=== PATIENT | female | born 1950 | race Caucasian/White ===

== ENCOUNTER 2020-03-29 08:58 | Outpatient (REF) | payer MEDICARE, SELFPAY ==
--- NOTE | 2020-03-29 09:03 | MM_ITS ---
EXAMINATION: MM SCREENING DIGITAL BREAST TOMOSYNTHESIS, BILATERAL CLINICAL INFORMATION: Screening. Asymptomatic. The lifetime risk of breast cancer based on the Tyrer-Cuzick Model is 5.2%. COMPARISON: Mammography: January 11, 2019 and studies dating back to May 24, 2013 TECHNIQUE: Digital breast tomosynthesis is performed in both the craniocaudal and mediolateral oblique views along with computer-aided detection (CAD). Synthesized 2D images are generated from the tomosynthesis. Left exaggerated craniocaudal view also performed. FINDINGS: The breasts are heterogeneously dense, which may obscure small masses (ACR BI-RADS breast composition Category c). There are no significant masses, abnormal calcifications, or other abnormalities. There is stable grouping of calcifications about the deep lateral aspect of the left breast which may be vascular. MM/MM tomosynthesis screening BI IMPRESSION: There are no significant changes from prior study. ASSESSMENT: BI-RADS 2: Benign RECOMMENDATION: Routine annual mammography screening. This patient's information was entered into a reminder system with a target due date for their next mammogram.
== END 2020-03-29 08:59 | disposition home or self-care (01) ==
LOC: HO.MAMMO 08:58
PROVIDERS: PCP Internal Medicine; Visit Provider Internal Medicine
DX: Z12.31 Encounter for screening mammogram for malignant neoplasm of breast (principal)
CPT/HCPCS: 77063; 77067

== ENCOUNTER 2020-05-09 09:08 | Outpatient (REF) | payer MEDICARE, SELFPAY ==
[2020-05-09 11:43] LABS: Cholesterol 137 mg/dL; Glucose Fasting 83 mg/dL (60-99); HDL Cholesterol 52 mg/dL; LDL Cholesterol Calculated 70 mg/dl; Triglycerides 76 mg/dL
[2020-05-09 12:08] LABS: Vitamin D 25-OH Total 38.5 ng/mL (>30)
== END 2020-05-09 09:09 | disposition home or self-care (01) ==
LOC: HO.HMGCLDS 09:08
PROVIDERS: PCP Internal Medicine; Visit Provider Internal Medicine
DX: E78.5 Hyperlipidemia, unspecified (principal); I10 Essential (primary) hypertension; M35.3 Polymyalgia rheumatica
CPT/HCPCS: 36415; 80061; 82306; 82947

== ENCOUNTER 2020-06-07 10:19 | Outpatient (REF) | payer MEDICARE, SELFPAY ==
--- NOTE | ~2020-06-07 | MM_ITS ---
EXAMINATION: BONE DENSITOMETRY CLINICAL INDICATION: Asymptomatic menopausal state. COMPARISON: Previous BD dated 11/21/2017 and baseline BD dated 08/19/2008. TECHNIQUE: Using a [employer] DXA System (software version: 13.1) manufactured by [employer], dual-energy x-ray absorptiometry was performed of the lumbar spine and left hip. The images are of good technical quality. Summary results are attached. FINDINGS: AP SPINE L1-L4: Current: BMD 0.893 g/cm2, Z-score -0.6, T-score -2.4, osteopenia, 8.0% decrease from previous, 14.1% decrease from baseline (<5% change is not significant). Prior: BMD 0.971 g/cm2. Baseline: BMD 1.040 g/cm2. LEFT FEMUR, NECK: Current: BMD 0.724 g/cm2, Z-score -0.5, T-score -2.3, osteopenia. Prior: BMD 0.834 g/cm2. Baseline: BMD 0.910 g/cm2. LEFT FEMUR, TOTAL: Current: BMD 0.780 g/cm2, Z-score -0.3, T-score -1.8, osteopenia, 11.4% decrease from previous, 16.1% decrease from baseline (<5% change is not significant). Prior: BMD 0.880 g/cm2. Baseline: BMD 0.930 g/cm2. IDENTIFIED RISK FACTORS: Menopause, glucocorticoids (chronic). HISTORY OF FRACTURE: None listed. MEDICATIONS: Calcium supplements or multivitamin, vitamin D. MM/XR DEXA axial skeleton IMPRESSION: 1. DIAGNOSIS: Osteopenia based on the lowest T-score value of -2.4 in the lumbar spine applying World Health Organization criteria. 2. 10-YEAR FRACTURE RISK PREDICTION, FRAX: Major osteoporotic fracture (clinical spine, forearm, hip or shoulder) 18.5%. Hip fracture 4.5%. 3. Treatment Recommendations: NOF guidelines recommend consideration for treatment in postmenopausal women and men age 50 and older presenting with the following: -A hip or vertebral (clinical or morphometric) fracture. -T-score less than or equal to -2.5 at the femoral neck or spine after appropriate evaluation to exclude secondary causes. -Low bone mass at the hip or spine and a 10-year fracture probability by FRAX of greater than or equal to 3% for hip fracture or greater than or equal to 20% for major osteoporotic fracture based on the [place] adapted WHO algorithm. 4. Other Recommendations: All treatment decisions require clinical judgment and consideration of individual patient factors, including patient preferences, comorbidities, previous drug use, risk factors not captured in the FRAX model (e.g. frailty, falls, vitamin D deficiency, increased bone turnover, interval significant decline in bone density) and possible under or overestimation of fracture risk by FRAX. Additional medical evaluation for secondary cause of low bone mineral density may be appropriate. FUTURE SCAN RECOMMENDATION: People with diagnosed cases of osteoporosis or at high risk for fracture should have regular bone mineral density tests. For patients eligible for Medicare, routine testing is allowed once every 2 years. The testing frequency can be increased to one year for patients who have rapidly progressing disease, those who are receiving or discontinuing medical therapy to restore bone mass, or have additional risk factors.
== END 2020-06-07 10:20 | disposition home or self-care (01) ==
LOC: HO.MAMMO 10:19
PROVIDERS: Visit Provider Internal Medicine
DX: Z13.820 Encounter for screening for osteoporosis (principal); E27.49 Other adrenocortical insufficiency; M85.80 Other specified disorders of bone density and structure, unspecified site; Z78.0 Asymptomatic menopausal state; Z79.899 Other long term (current) drug therapy
CPT/HCPCS: 77080

== ENCOUNTER 2020-10-31 08:48 | Outpatient (REF) | payer MEDICARE, SELFPAY ==
--- NOTE | ~2020-10-31 | US_ITS ---
EXAMINATION: US THYROID CLINICAL INFORMATION: Nontoxic multinodular goiter. Left lobectomy. COMPARISON: Thyroid ultrasound 11/04/2019 and 11/12/2018. Ultrasound-guided thyroid biopsy 10/23/2017. TECHNIQUE: Linear transducer grayscale and color Doppler examination with attention to the region of the thyroid. FINDINGS: SIZE: Measurements of the solitary right lobe and nodules are given in sagittal, anteroposterior and transverse dimensions respectively. Right Thyroid Lobe: 6.5 x 2.3 x 2.0 cm, volume 15.6 mL. Previously 6.1 x 2.5 x 1.8 cm, volume 14.4 mL. Parenchyma: The gland echotexture is heterogeneous. Thyroid vascularity is increased. Left Thyroid Lobe: Surgically absent. Isthmus: 0.9 cm in maximum AP dimension. Previously 0.8 cm. Estimated total number of nodules greater than or equal to 1 cm: 1. 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 Location: Right upper pole. Size: 0.5 x 0.3 x 0.5 cm, volume 0.04 mL. Previously: 0.5 x 0.3 x 0.5 cm, volume 0.04 mL. Nodule characteristics: Composition: Solid/almost completely solid (2). Echogenicity: Isoechoic (1). Shape: Not taller than wide (0). Margins: Smooth (0). Echogenic Foci: None (0). ACR TI-RADS total points: 3 Previous: Not applicable ACR TI-RADS category: 3 Previous: Not applicable Significant change in size (>/= 20% in 2 dimensions and minimal increase of 2 mm or 50% or greater increase in volume): Change in features: Change in ACR TI-RADS risk category: Not applicable 2. Location: Right upper pole. Size: 0.6 x 0.3 x 0.6 cm, volume 0.04 mL. Previously: 0.5 x 0.3 x 0.5 cm, volume 0.04 mL. Nodule characteristics: Composition: Spongiform (0). Echogenicity: Shape: Margins: Echogenic Foci: ACR TI-RADS total points: Previous: Not applicable ACR TI-RADS category: Previous: Not applicable Significant change in size (>/= 20% in 2 dimensions and minimal increase of 2 mm or 50% or greater increase in volume): Change in features: Change in ACR TI-RADS risk category: Not applicable 3. Location: Right upper pole. Size: 0.3 x 0.2 x 0.4 cm, volume 0.02 mL. Previously: Not documented, new. Nodule characteristics: Composition: Solid/almost completely solid (2). Echogenicity: Isoechoic (1). Shape: Not taller than wide (0). Margins: Smooth (0). Echogenic Foci: None (0). ACR TI-RADS total points: 3 Previous: Not applicable ACR TI-RADS category: 3 Previous: Not applicable 4. Location: Right lower pole. Size: 1.6 x 1.1 x 1.6 cm, volume 1.50 mL. Previously: 1.4 x 1.1 x 1.3 cm, volume 1.05 mL. Nodule characteristics: Composition: Solid (2). Echogenicity: Isoechoic (1). Shape: Not taller than wide (0). Margins: Irregular (2). Echogenic Foci: None (0). ACR TI-RADS total points: 5 Previous: Not applicable ACR TI-RADS category: 4 Previous: Not applicable Significant change in size (>/= 20% in 2 dimensions and minimal increase of 2 mm or 50% or greater increase in volume): Change in features: Change in ACR TI-RADS risk category: Not applicable NODES: No lymphadenopathy is seen in the tissue surrounding the thyroid gland. US/US thyroid IMPRESSION: Enlarged heterogeneous hypervascular right lobe and isthmus. 4 right thyroid nodules. There is a newly appreciated small nodule in the superior right lobe. Otherwise thyroid nodules do not appear appreciably changed. ACR TI-RADS RECOMMENDATION REFERENCE: Ultrasound-guided fine-needle aspiration, followup ultrasound, no further follow up. * TR1 (0 point) and TR 2 (2 points): No FNA or follow up * TR3 (3 points): FNA if more than or equal to 2.5 cm in maximum dimension, followup ultrasound in 1, 3 and 5 years if 1.5 to 2.4 cm in maximum dimension. * TR4 (4-6 points): FNA if more than or equal to 1.5 cm in maximum dimension, followup ultrasound in 1, 2, 3 and 5 years if 1 to 1.4 cm in maximum dimension. * TR5 (more than or equal to 7 points): FNA if more than or equal to 1 cm in maximum dimension, followup ultrasound every year for 5 years if 0.5 to 0.9 cm in maximum dimension. * TR3, TR4 or TR5 nodules that are below the size threshold for follow up receive no follow up.
[2020-10-31 12:36] LABS: Free T4 (Free Thyroxine) 1.15 ng/dL (0.71-1.85); Thyroid Stimulating Hormone 1.08 uIU/mL (0.32-4.0)
== END 2020-10-31 08:49 | disposition home or self-care (01) ==
LOC: HO.HMGCX 08:48
PROVIDERS: Internal Medicine Endocrinology, Diabetes & Metabolism; Visit Provider Internal Medicine
DX: E04.2 Nontoxic multinodular goiter (principal)
CPT/HCPCS: 36415; 76536; 84439; 84443

== ENCOUNTER 2020-12-23 07:40 | Outpatient (REF) | payer MEDICARE, SELFPAY ==
[2020-12-23 11:36] LABS: Alanine Aminotransferase 14 U/L (0-31); Anion Gap 11 (12-20); Aspartate Amino Transferase 18 U/L (5-31); Blood Urea Nitrogen 13 mg/dL (9-16); Calcium 9.2 mg/dL (8.4-10.2); Carbon Dioxide 26 mmol/L (22-29); Chloride 107 mmol/L (96-108); Cholesterol 121 mg/dL; Estimated Glomerular Filt Rate > 60; Glucose Fasting 90 mg/dL (60-99); HDL Cholesterol 45 mg/dL; LDL Cholesterol Calculated 66 mg/dl; Potassium 4.4 mmol/L (3.3-5.1); Sodium 140 mmol/L (135-145); Triglycerides 51 mg/dL
[2020-12-23 11:45] LABS: Free T4 (Free Thyroxine) 1.06 ng/dL (0.71-1.85); Thyroid Stimulating Hormone 1.25 uIU/mL (0.32-4.0)
[2020-12-23 11:46] LABS: Vitamin D 25-OH Total 34.6 ng/mL (>30)
== END 2020-12-23 07:41 | disposition home or self-care (01) ==
LOC: HO.HMGCLDS 07:40
PROVIDERS: Internal Medicine; PCP Internal Medicine; Visit Provider Internal Medicine
DX: E04.2 Nontoxic multinodular goiter (principal); I10 Essential (primary) hypertension; E78.5 Hyperlipidemia, unspecified; M85.89 Other specified disorders of bone density and structure, multiple sites; M35.3 Polymyalgia rheumatica; Z78.0 Asymptomatic menopausal state
CPT/HCPCS: 36415; 80048; 80061; 82306; 84439; 84443; 84450; 84460

== ENCOUNTER 2021-03-29 07:29 | Outpatient (REF) | payer MEDICARE, SELFPAY ==
[2021-03-29 11:59] LABS: Alanine Aminotransferase 12 U/L (0-31); Aspartate Amino Transferase 16 U/L (5-31); Cholesterol 130 mg/dL; HDL Cholesterol 44 mg/dL; LDL Cholesterol Calculated 69 mg/dl; Triglycerides 85 mg/dL
== END 2021-03-29 07:30 | disposition home or self-care (01) ==
LOC: HO.HMGCLDS 07:29
PROVIDERS: Visit Provider Internal Medicine
DX: E78.5 Hyperlipidemia, unspecified (principal); I10 Essential (primary) hypertension
CPT/HCPCS: 36415; 80061; 84450; 84460

== ENCOUNTER 2021-04-23 09:55 | Outpatient (REF) | payer MEDICARE, SELFPAY ==
--- NOTE | ~2021-04-23 | MM_ITS ---
EXAMINATION: MM SCREENING DIGITAL BREAST TOMOSYNTHESIS, BILATERAL CLINICAL INFORMATION: Screening. Asymptomatic. The lifetime risk of breast cancer based on the Tyrer-Cuzick Model is 4%. COMPARISON: Mammography: 03/29/2020, 01/11/2019, 11/21/2017 TECHNIQUE: Digital breast tomosynthesis is performed in both the craniocaudal and mediolateral oblique views along with computer-aided detection (CAD). Synthesized 2D images are generated from the tomosynthesis. FINDINGS: The breasts are heterogeneously dense, which may obscure small masses (ACR BI-RADS breast composition Category c). There are no significant masses, abnormal calcifications, or other abnormalities. Parenchymal pattern is similar to prior studies. There is no developing density or architectural abnormality. There are dermal lesions again seen overlying the upper right breast on MLO view. The axilla and skin contours are unremarkable. No significant changes. MM/MM tomosynthesis screening BI IMPRESSION: No mammographic evidence of malignancy. ASSESSMENT: BI-RADS 2: Benign RECOMMENDATION: Routine annual mammography screening. This patient's information was entered into a reminder system with a target due date for their next mammogram.
== END 2021-04-23 09:56 | disposition home or self-care (01) ==
LOC: HO.MAMMO 09:55
PROVIDERS: PCP Internal Medicine; Visit Provider Internal Medicine
DX: Z12.31 Encounter for screening mammogram for malignant neoplasm of breast (principal)
CPT/HCPCS: 77063; 77067

== ENCOUNTER 2021-08-01 10:39 | Outpatient (REF) | payer MEDICARE, SELFPAY ==
--- NOTE | ~2021-08-01 | US_ITS ---
EXAMINATION: US ULTRASOUND-GUIDED THYROID FINE-NEEDLE ASPIRATION CLINICAL INFORMATION: Thyroid nodule. COMPARISON: Previous thyroid ultrasound, most recent October 2020. TECHNIQUE: Procedure and risks and benefits including bleeding and infection were discussed with the patient and informed consent was obtained. The right neck was prepped and draped in usual sterile fashion. The skin and soft tissues were anesthetized with 1% lidocaine plain. Using ultrasound guidance and a 25-gauge needle, access to the dominant nodule in the right lobe was obtained. Five separate 25-gauge FNA specimens were obtained. FINDINGS: There is a 1.7 x 1.2 x 1.8 cm nodule in the inferior right lobe that was targeted for fine-needle aspiration. US/US guided fine needle asp IMPRESSION: Ultrasound-guided right inferior thyroid nodule fine-needle aspiration.
[2021-08-01] MEDS: Lidocaine HCl 1 % MPF 5 ML VIAL SUBCUT (11:55)
== END 2021-08-01 10:40 | disposition home or self-care (01) ==
LOC: HO.US 10:39
PROVIDERS: PCP Internal Medicine; Visit Provider Internal Medicine
DX: E04.2 Nontoxic multinodular goiter (principal)
CPT/HCPCS: 10005; 88172; 88173; 88177; 88305

== ENCOUNTER 2021-08-03 07:11 | Outpatient (REF) | payer MEDICARE, SELFPAY ==
[2021-08-03 11:37] LABS: MANUAL DIFF FLAG NO
[2021-08-03 12:04] LABS: Basophils Absolute Auto 0.1 X10*3/uL (0.0-0.2); Basophils Percent Auto 1.1 % (0-2); Eosinophils Absolute Auto 0.2 X10*3/uL (0.0-0.4); Eosinophils Percent Auto 3.7 % (0-4); Hematocrit 44.2 % (37.0-47.0); Hemoglobin 14.5 g/dl (12.0-16.0); Imm Gran Abs Auto 0.01 X10*3/uL (0.00-0.03); Imm Gran Pct Auto 0.2 % (0.0-0.4); Lymphocytes Absolute Auto 1.6 X10*3/uL (1.2-4.9); Lymphocytes Percent Auto 26.2 % (20-40); Mean Corpuscular HGB Conc 32.8 g/dl (31.0-35.0); Mean Corpuscular Hemoglobin 29.9 pg (27.0-33.0); Mean Corpuscular Volume 91.1 fL (80.0-98.0); Mean Platelet Volume 11.9 fL (9.4-12.3); Monocytes Absolute Auto 0.6 X10*3/uL (0.1-1.2); Monocytes Percent Auto 8.8 % (2-11); Neutrophils Absolute Auto 3.7 x10*3/uL (2.0-8.3); Platelet Count 207 X10*3/uL (160-400); Red Blood Count 4.85 X10*6/uL (4.20-5.50); Red Cell Distribution Width 12.5 % (11.0-16.0); White Blood Count 6.2 X10*3/uL (4.8-10.8)
[2021-08-03 12:23] LABS: Alanine Aminotransferase 17 U/L (0-31); Anion Gap 15 (12-20); Aspartate Amino Transferase 15 U/L (5-31); Blood Urea Nitrogen 11 mg/dL (9-16); Calcium 9.5 mg/dL (8.4-10.2); Carbon Dioxide 25 mmol/L (22-29); Chloride 106 mmol/L (96-108); Cholesterol 140 mg/dL; Estimated Glomerular Filt Rate > 60; Glucose Fasting 98 mg/dL (60-99); HDL Cholesterol 50 mg/dL; LDL Cholesterol Calculated 72 mg/dl; Potassium 4.6 mmol/L (3.3-5.1); Sodium 141 mmol/L (135-145); Triglycerides 94 mg/dL
[2021-08-03 12:42] LABS: Vitamin D 25-OH Total 37.4 ng/mL (>30)
== END 2021-08-03 07:12 | disposition home or self-care (01) ==
LOC: HO.HMGCLDS 07:11
PROVIDERS: PCP Internal Medicine; Visit Provider Internal Medicine
DX: M35.3 Polymyalgia rheumatica (principal); I10 Essential (primary) hypertension; E78.5 Hyperlipidemia, unspecified; M85.89 Other specified disorders of bone density and structure, multiple sites; Z78.0 Asymptomatic menopausal state
CPT/HCPCS: 36415; 80048; 80061; 82306; 84450; 84460; 85025

== ENCOUNTER → 2021-08-08 09:42 | Outpatient (BNVA) | payer MEDICARE, SELFPAY | PROVIDERS: PCP Internal Medicine; Visit Provider Internal Medicine | DX: E04.2 Nontoxic multinodular goiter (principal); E55.9 Vitamin D deficiency, unspecified | CPT/HCPCS: Q3014 ==

== ENCOUNTER 2021-08-28 13:06 | Outpatient (REF) | payer MEDICARE, SELFPAY ==
[2021-08-28 14:49] LABS: Free T4 (Free Thyroxine) 1.14 ng/dL (0.71-1.85); Thyroid Stimulating Hormone 1.08 uIU/mL (0.32-4.0)
== END 2021-08-28 13:07 | disposition home or self-care (01) ==
LOC: HO.HMGCLDS 13:06
PROVIDERS: PCP Internal Medicine; Visit Provider Internal Medicine
DX: E04.2 Nontoxic multinodular goiter (principal)
CPT/HCPCS: 36415; 84439; 84443

== ENCOUNTER 2021-10-17 10:53 | Outpatient (REF) | payer MEDICARE, SELFPAY ==
--- NOTE | ~2021-10-17 | XR_ITS ---
EXAMINATION: XR HAND, RIGHT CLINICAL INFORMATION: Laceration of finger. COMPARISON: None TECHNIQUE: PA, lateral, and oblique views of the right hand. FINDINGS: Bones have normal alignment in the hand or wrist. No acute fracture or subluxation. Bone island of the distal ulnar metaphysis. No suspicious osseous lesion. 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 Mild osteoarthritis of the first carpometacarpal joint. A superficial soft tissue laceration projects anterior to the middle phalanx of the index finger. No radiopaque foreign body in this area. There appears to be mild soft tissue swelling of the injured index finger. XR/XR hand RT 2V IMPRESSION: * No acute osseous injury in the right hand. * Soft tissue laceration is observed anterior to the middle phalanx of the index finger.
== END 2021-10-17 10:54 | disposition home or self-care (01) ==
LOC: HO.HMGCX 10:53
PROVIDERS: PCP Internal Medicine; Visit Provider Family Medicine
DX: S61.211A Laceration without foreign body of left index finger without damage to nail, initial encounter (principal)
CPT/HCPCS: 73120

== ENCOUNTER 2022-01-23 07:38 | Outpatient (REF) | payer MEDICARE, SELFPAY ==
[2022-01-23 11:29] LABS: Alanine Aminotransferase 14 U/L (0-31); Anion Gap 13 (12-20); Aspartate Amino Transferase 15 U/L (5-31); Blood Urea Nitrogen 10 mg/dL (9-16); Calcium 9.6 mg/dL (8.4-10.2); Carbon Dioxide 29 mmol/L (22-29); Chloride 106 mmol/L (96-108); Cholesterol 147 mg/dL; Estimated Glomerular Filt Rate > 60; Glucose Fasting 99 mg/dL (60-99); HDL Cholesterol 59 mg/dL; LDL Cholesterol Calculated 72 mg/dl; Potassium 4.4 mmol/L (3.3-5.1); Sodium 144 mmol/L (135-145); Triglycerides 80 mg/dL
== END 2022-01-23 07:39 | disposition home or self-care (01) ==
LOC: HO.HMGCLDS 07:38
PROVIDERS: PCP Internal Medicine; Visit Provider Internal Medicine
DX: E78.5 Hyperlipidemia, unspecified (principal); I10 Essential (primary) hypertension
CPT/HCPCS: 36415; 80048; 80061; 84450; 84460

== ENCOUNTER 2022-02-21 15:34 | Outpatient (AMB) | payer MEDICARE, SELFPAY ==
[2022-02-21 15:55] VITALS: BP 130/72; PULSE 78; O2SAT 99
--- NOTE | 2022-02-21 15:55 | MHC.PC.OV ---
Vital Signs 02/21/22 15:55 Weight 127 lb 8 oz BP 130/72 Blood Pressure Location Rt brachial Position Standing Pulse 78 Pulse Source Pulse Oximeter Pulse Oximetry (%) 99 Oxygen Delivery Method Room Air Intake Visit Reasons: Follow up Allergies shellfish derived [SHELLFISH DERIVED] Allergy (Severe, Verified 04/23/24 08:33) Nausea, vomiting, Sever GI upset Sulfa (Sulfonamide Antibiotics) [SULFA (SULFONAMIDE ANTIBIOTICS)] Allergy (Intermediate, Verified 04/23/24 08:33) RASH, hives/rash TB test Allergy (Unknown, Uncoded 04/23/24 08:33) localized swelling, throat swelling Medication List - Last Reconciled 02/21/22 by Zari Dozier MD alendronate 70 mg PO QWEEK amlodipine 5 mg PO DAILY atorvastatin 20 mg PO DAILY 90 days cholecalciferol (vitamin D3) 50 mcg PO DAILY flu vac qv 2019(18yr up)rc(PF) IM hydroxychloroquine 300 mg PO DAILY latanoprost 0.005% 1 drp ophthalmic (eye) BEDTIME Tobacco use date assessed: 02/21/22 HPI Follow up HPI Details 72-year-old lady here today for follow-up on her hypertension and dyslipidemia currently on atorvastatin 20 mg daily and amlodipine 5 mg daily. Blood pressure stable controlled on present treatment, recent fasting labs showed fasting lipids are also within normal limits. [facility] Medical History Right thyroid nodule Osteopenia of multiple sites Postmenopause Bharath's thyroiditis Nontoxic multinodular goiter PMR (polymyalgia rheumatica) Essential hypertension Dyslipidemia Surgical History Hx of colonoscopy History of thyroidectomy History of tonsillectomy Family History Father Alzheimer's disease Mother HTN (hypertension) CAD (coronary artery disease) Brother CAD (coronary artery disease) Sister No problems noted. Son No problems noted. Son No problems noted. Social History Housing: Condominium Alcohol intake: current Patient Tobacco Use Status: Never used Tobacco e-Cigarette/Vaping Use: Never Used Second Hand Smoke Exposure: No Current occupational status: retired Cognitive needs: No Hearing needs: No Vision needs: Yes Questionnaire PHQ-9 Over the last 2 weeks, how often have you been bothered by any of the following problems? 1. Little interest or pleasure in doing things: not at all 2. Feeling down, depressed, or hopeless: not at all 3. Trouble falling or staying asleep, or sleeping too much: not at all 4. Feeling tired or having little energy: not at all 5. Poor appetite or overeating: not at all 6. Feeling bad about yourself - or that you are a failure or have let yourself or your family down: not at all 7. Trouble concentrating on things, such as reading the newspaper or watching television: not at all 8. Moving or speaking so slowly that other people could have noticed. Or the opposite - being so fidgety or restless that you have been moving around a lot more than usual: not at all 9. Thoughts that you would be better off or of hurting yourself in some way: not at all Total score: 0 Depression Screening Interpretation: Negative 47381 - PHQ-9 Billing: Yes Source: Developed by Drs. Andrea Ba, Yoko Murcia, Jesse Gould and colleagues, with an educational sigifredo from [employer] Thrive Questionnaire Date Thrive assessed: 02/21/22 I am a: Patient What is your living situation today?: I have a steady place to live Within the past 12 months, did the food you bought not last and you didn't have the money to get more?: Never true Within the past 12 months, did you worry whether your food would run out before you got money to buy more?: Never true Do you have trouble paying for medicines?: No Do you have trouble getting transportation to medical appointments?: No Do you have trouble paying your heating and electricity bill?: No Do you have trouble taking care of your child, family member or friend?: No Do you have trouble with day-to-day activities such as bathing, preparing meals, shopping, managing finances, etc.?: No Are you currently unemployed and looking for a job?: No Are you interested in more education?: No GER-7 AMB Questionnaire GER-7 Date GER - 7 assessed: 02/21/22 Feeling nervous, anxious, or on edge: 0 = Not at all Not being able to stop or control worryin = Not at all Worrying too much about different things: 0 = Not at all Trouble relaxin = Not at all Being so restless that it is hard to sit still: 0 = Not at all Becoming easily annoyed or irritable: 0 = Not at all Feeling afraid as if something awful might happen: 0 = Not at all Total GER-7 score (0-4 normal; 5-9 mild; 10-14 moderate; 15-21 severe): 0 Source: Developed by Drs. Andrea Ba, Yoko Murcia, Jesse Gould and colleagues, with an educational sigifredo from [employer] GER-7 Assessment Billing GER-7 Assessment Tool: GER-7 Assessment 49630 Review of Systems Const Reports no additional complaints Eyes Denies blurry vision and Denies irritation ENT Reports no additional complaints Card Denies chest pain with activity, Denies diaphoresis, Denies claudication, Denies dyspnea and Denies dyspnea on exertion Resp Denies dyspnea and Denies dyspnea on exertion GI Reports no additional complaints Musc Denies muscle cramps, Denies muscle weakness and Reports stiffness Neuro Reports no additional complaints Physical exam (Primary Care) Vital Signs: Last Vital Signs Pulse 78 02/21/22 15:55 BP 130/72 02/21/22 15:55 Pulse Ox 99 02/21/22 15:55 Oxygen Delivery Method Room Air 02/21/22 15:55 Tobacco/Smoking Status: Tobacco use Status Tobacco use date assessed 02/21/22 02/21/22 15:57 Patient Tobacco Use Status Never used Tobacco 02/21/22 15:57 e-Cigarette/Vaping Use Never Used 02/21/22 15:57 PHQ-9: PHQ-9 Score PHQ-9: Total score 0 02/21/22 16:38 Depression Screening Interpretation: Negative Thrive Assessment: Date of Thrive Assessment Date Thrive assessed 02/21/22 02/21/22 15:57 Const General: cooperative, comfortable and no acute distress Orientation/consciousness: patient oriented x3 HENMT General nose exam: Normal external nose present Face and sinus: Yes face symmetric Mouth: oropharynx normal and moist mucous membranes Eyes General: appearance normal, both eyes and all related structures Neck Neck: Yes full ROM, Yes no lymphadenopathy and Yes supple Resp Effort & Inspection: normal respiratory effort and able to speak in complete sentences Auscultation: clear to auscultation bilaterally Cardio Rate: regular rate Rhythm: regular rhythm Heart sounds: S1 normal heart sound present and S2 normal heart sound present GI Palpation (GI): Soft to palpation, nontender, no guarding and no masses Neuro General: patient oriented x3, gait normal, tone normal, moves all extremities, Normal light touch and pain sensation and no focal motor deficits Cognition (Neuro): normal cognition Gait exam (Neuro): Normal gait present Motor exam (neuro): 5/5 motor strength present throughout Extrem General: Yes full ROM, Yes no joint enlargement, Yes no clubbing, cyanosis or edema, Yes no calf tenderness and Yes normal gait Results Reviewed Results Reviewed: ENTERED: 01/23/22 SARAH BYNUM: ORDERED: Met Prof Fast, AST, ALT, Lipid Panel Test Result Flag Reference Site Sodium 144 135-145 mmol/L Potassium 4.4 3.3-5.1 mmol/L CL 106 96-108 mmol/L CO2 29 22-29 mmol/L Gap 13 12-20 BUN 10 9-16 mg/dL Creat 0.79 0.5-1.4 mg/dL EGFR > 60 NOTE: For -[place] individuals, multiply the result by 1.210. Chronic Kidney Disease: Estimated GFR < 60 mL/min/1.73m2 Severe Kidney Disease: Estimated GFR < 15 mL/min/1.73m2 FBS 99 60-99 mg/dL CA 9.6 8.4-10.2 mg/dL AST (GOT) 15 5-31 U/L ALT (GPT) 14 0-31 U/L Triglyceride 80 mg/dL Desirable Triglyceride: less than 150 mg/dL Borderline High Triglyceride 150-199 mg/dL High Triglyceride: 200-499 mg/dL Very High Triglyceride: greater than or equal to 5OO mg/dL Chol 147 mg/dL Desirable Cholesterol: less than 200 mg/dL Borderline High Cholesterol: 200-239 mg/dL High Cholesterol: greater than 239 mg/dL LDL Calculated 72 mg/dl Desirable LDL: less than 100 mg/dL Near Optimal/Above Optimal LDL: 110-129 mg/dL Borderline High LDL: 130-159 mg/dL High LDL: 160-189 mg/dL Very High LDL: greater than or equal to 190 mg/dL HDL 59 mg/dL Desirable HDL: greater than 40 mg/dL Coding Level of Care Code Est Pt Level 3 (88365) Diagnoses Essential hypertension I10 Dyslipidemia E78.5 Additional Codes GER-7 Assessment Billing - GER-7 Assessment Tool: GER-7 Assessment 96173 ([id number])
== END 2022-02-21 16:46 | disposition home or self-care (01) ==
LOC: HO.HMGC 15:34
PROVIDERS: PCP Internal Medicine; Visit Provider Internal Medicine
DX: I10 Essential (primary) hypertension (principal); E78.5 Hyperlipidemia, unspecified
CPT/HCPCS: 99499

== ENCOUNTER 2022-07-23 09:48 | Outpatient (REF) | payer MEDICARE, SELFPAY ==
--- NOTE | ~2022-07-23 | US_ITS ---
EXAMINATION: US THYROID CLINICAL INFORMATION: Nontoxic multinodular goiter. COMPARISON: Ultrasound soft tissue head/neck thyroid dated 10/31/2020 and 11/04/2019. TECHNIQUE: Linear transducer grayscale and color Doppler examination with attention to the region of the thyroid. FINDINGS: SIZE: Measurements of the solitary right thyroid lobe and nodules are given in sagittal, anteroposterior and transverse dimensions respectively. Right Thyroid Lobe: 5.9 x 2.3 x 2.3 cm, volume 16.3 mL. Previously 6.5 x 2.3 x 2.0 cm, volume 15.6 mL. Parenchyma: The gland echotexture is heterogeneous. Thyroid vascularity is increased. Left Thyroid Lobe: Surgically absent. Isthmus: 0.8 cm in maximum AP dimension. Previously 0.9 cm. Estimated total number of nodules greater than or equal to 1 cm: 1. 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 Location: Right superior. Size: 0.6 x 0.3 x 0.5 cm, volume 0.05 mL. Previously: New since the previous study. Nodule characteristics: Composition: Mixed cystic and solid (1). Echogenicity: Isoechoic (1). Shape: Not taller than wide (0). Margins: Smooth (0). Echogenic Foci: None (0). ACR TI-RADS total points: 2 ACR TI-RADS category: 2 2. Location: Right superior. Size: 0.6 x 0.3 x 0.6 cm, volume 0.06 mL. Previously: 0.6 x 0.3 x 0.6 cm, volume 0.06 mL. Nodule characteristics: Composition: Spongiform (0). Echogenicity: Anechoic (0). Shape: Not taller than wide (0). Margins: Smooth (0). Echogenic Foci: None (0). ACR TI-RADS total points: 0 Previous: 0 ACR TI-RADS category: 1 Previous: 1 Significant change in size (>/= 20% in 2 dimensions and minimal increase of 2 mm or 50% or greater increase in volume): No Change in features: No Change in ACR TI-RADS risk category: No 3. Location: Right superior. Size: 0.6 x 0.3 x 0.5 cm, volume 0.05 mL. Previously: 0.3 x 0.2 x 0.4 cm, volume 0.02 mL. Nodule characteristics: Composition: Solid (2). Echogenicity: Isoechoic (1). Shape: Not taller than wide (0). Margins: Smooth (0). Echogenic Foci: None (0). ACR TI-RADS total points: 3 Previous: 3 ACR TI-RADS category: 3 Previous: 3 Significant change in size (>/= 20% in 2 dimensions and minimal increase of 2 mm or 50% or greater increase in volume): No Change in features: No Change in ACR TI-RADS risk category: No 4. Location: Right inferior. Size: 1.9 x 1.3 x 1.8 cm, volume 2.27 mL. Previously: 1.6 x 1.1 x 1.6 cm, volume 1.50 mL. Nodule characteristics: Composition: Solid (2). Echogenicity: Hypoechoic (2). Shape: Not taller than wide (0). Margins: Irregular (2). Echogenic Foci: None (0). ACR TI-RADS total points: 6 Previous: 5 ACR TI-RADS category: 4 Previous: 4 Significant change in size (>/= 20% in 2 dimensions and minimal increase of 2 mm or 50% or greater increase in volume): Yes Change in features: No Change in ACR TI-RADS risk category: No NODES: No lymphadenopathy is seen in the tissue surrounding the thyroid gland. US/US thyroid IMPRESSION: Multiple nodules are again seen throughout the right lobe, remaining heterogeneous and hypervascular. The most dominant nodule (#4) appears to be increased in prominence from prior. This appears to have been previously biopsied. ACR TI-RADS RECOMMENDATION REFERENCE: Ultrasound-guided fine-needle aspiration, followup ultrasound, no further follow up. * TR1 (0 point) and TR2 (2 points): No FNA or follow up * TR3 (3 points): FNA if more than or equal to 2.5 cm in maximum dimension, followup ultrasound in 1, 3 and 5 years if 1.5 to 2.4 cm in maximum dimension. * TR4 (4-6 points): FNA if more than or equal to 1.5 cm in maximum dimension, followup ultrasound in 1, 2, 3 and 5 years if 1 to 1.4 cm in maximum dimension. * TR5 (more than or equal to 7 points): FNA if more than or equal to 1 cm in maximum dimension, followup ultrasound every year for 5 years if 0.5 to 0.9 cm in maximum dimension. * TR3, TR4 or TR5 nodules that are below the size threshold for follow up receive no follow up.
== END 2022-07-23 09:49 | disposition home or self-care (01) ==
LOC: HO.HMGCX 09:48
PROVIDERS: PCP Internal Medicine; Visit Provider Internal Medicine
DX: E04.2 Nontoxic multinodular goiter (principal)
CPT/HCPCS: 76536

== ENCOUNTER → 2022-08-12 09:45 | Outpatient (BNVA) | payer MEDICARE, SELFPAY | PROVIDERS: PCP Internal Medicine; Visit Provider Internal Medicine | DX: E04.2 Nontoxic multinodular goiter (principal) | CPT/HCPCS: 99212 ==

== ENCOUNTER 2022-08-15 14:53 | Outpatient (REF) | payer MEDICARE, SELFPAY ==
[2022-08-15 17:16] LABS: Free T4 (Free Thyroxine) 1.07 ng/dL (0.71-1.85); Thyroid Stimulating Hormone 0.71 uIU/mL (0.32-4.0)
== END 2022-08-15 14:54 | disposition home or self-care (01) ==
LOC: HO.HMGCLDS 14:53
PROVIDERS: PCP Internal Medicine; Visit Provider Internal Medicine
DX: E04.2 Nontoxic multinodular goiter (principal)
CPT/HCPCS: 36415; 84439; 84443

== ENCOUNTER 2022-09-10 07:43 | Outpatient (REF) | payer MEDICARE, SELFPAY ==
[2022-09-10 12:04] LABS: Alanine Aminotransferase 11 U/L (0-31); Anion Gap 10 (12-20); Aspartate Amino Transferase 13 U/L (5-31); Blood Urea Nitrogen 18 mg/dL (9-16); Calcium 9.7 mg/dL (8.4-10.2); Carbon Dioxide 30 mmol/L (22-29); Chloride 106 mmol/L (96-108); Cholesterol 143 mg/dL; Estimated Glomerular Filt Rate > 60; Glucose Fasting 100 mg/dL (60-99); HDL Cholesterol 55 mg/dL; LDL Cholesterol Calculated 70 mg/dl; Potassium 4.2 mmol/L (3.3-5.1); Sodium 142 mmol/L (135-145); Triglycerides 90 mg/dL
== END 2022-09-10 07:44 | disposition home or self-care (01) ==
LOC: HO.HMGCLDS 07:43
PROVIDERS: PCP Internal Medicine; Visit Provider Internal Medicine
DX: E78.5 Hyperlipidemia, unspecified (principal); I10 Essential (primary) hypertension
CPT/HCPCS: 36415; 80048; 80061; 84450; 84460

== ENCOUNTER 2022-10-03 08:16 | Outpatient (REF) | payer MEDICARE, SELFPAY ==
--- NOTE | ~2022-10-03 | MM_ITS ---
EXAMINATION: BONE DENSITOMETRY CLINICAL INDICATION: Menopause. COMPARISON: Previous BD dated 06/06/2020 and baseline BD dated 08/19/2008. TECHNIQUE: Using a [employer] DXA System (software version: 13.1) manufactured by [employer], dual-energy x-ray absorptiometry was performed of the lumbar spine and left hip. The images are of good technical quality. Summary results are attached. FINDINGS: LEFT FEMUR, NECK: Current: BMD 0.617 g/cm2, Z-score -1.2, T-score -3.0, osteoporosis. Prior: BMD 0.724 g/cm2. Baseline: BMD 0.910 g/cm2. LEFT FEMUR, TOTAL: Current: BMD 0.670 g/cm2, Z-score -1.0, T-score -2.7, osteoporosis, 14.1% decrease from previous, 28.0% decrease from baseline (<5% change is not significant). Prior: BMD 0.780 g/cm2. Baseline: BMD 0.930 g/cm2. AP SPINE L1-L4: Current: BMD 0.961 g/cm2, Z-score 0.1, T-score -1.8, osteopenia, 7.6% increase from previous, 7.7% decrease from baseline (<5% change is not significant). Prior: BMD 0.893 g/cm2. Baseline: BMD 1.040 g/cm2. IDENTIFIED RISK FACTORS: Menopause. HISTORY OF FRACTURE: None listed. MEDICATIONS: Vitamin D, bisphosphonate. MM/XR DEXA axial skeleton IMPRESSION: 1. DIAGNOSIS: Osteoporosis based on the lowest T-score value of -3.0 in the lumbar spine applying World Health Organization criteria. 2. 10-YEAR FRACTURE RISK PREDICTION, FRAX: According to the guidelines, FRAX calculation should only be performed on patients in the osteopenia bone density category. Therefore, FRAX was not performed on this patient. 3. Treatment Recommendations: NOF guidelines recommend consideration for treatment in postmenopausal women and men age 50 and older presenting with the following: -A hip or vertebral (clinical or morphometric) fracture. -T-score less than or equal to -2.5 at the femoral neck or spine after appropriate evaluation to exclude secondary causes. -Low bone mass at the hip or spine and a 10-year fracture probability by FRAX of greater than or equal to 3% for hip fracture or greater than or equal to 20% for major osteoporotic fracture based on the [place] adapted WHO algorithm. 4. Other Recommendations: All treatment decisions require clinical judgment and consideration of individual patient factors, including patient preferences, comorbidities, previous drug use, risk factors not captured in the FRAX model (e.g. frailty, falls, vitamin D deficiency, increased bone turnover, interval significant decline in bone density) and possible under or overestimation of fracture risk by FRAX. Additional medical evaluation for secondary cause of low bone mineral density may be appropriate. FUTURE SCAN RECOMMENDATION: People with diagnosed cases of osteoporosis or at high risk for fracture should have regular bone mineral density tests. For patients eligible for Medicare, routine testing is allowed once every 2 years. The testing frequency can be increased to one year for patients who have rapidly progressing disease, those who are receiving or discontinuing medical therapy to restore bone mass, or have additional risk factors.
== END 2022-10-03 08:17 | disposition home or self-care (01) ==
LOC: HO.MAMMO 08:16
PROVIDERS: Absent Provider Internal Medicine Rheumatology; PCP Internal Medicine; Visit Provider Internal Medicine
DX: Z12.31 Encounter for screening mammogram for malignant neoplasm of breast (principal); Z13.820 Encounter for screening for osteoporosis; Z78.0 Asymptomatic menopausal state; M85.89 Other specified disorders of bone density and structure, multiple sites
CPT/HCPCS: 77063; 77067; 77080

== ENCOUNTER → 2022-10-03 08:45 | Outpatient (BNV) | payer MEDICARE, SELFPAY | PROVIDERS: Absent Provider Internal Medicine Rheumatology; PCP Internal Medicine; Visit Provider Radiology Diagnostic Radiology | DX: Z12.31 Encounter for screening mammogram for malignant neoplasm of breast (principal) | CPT/HCPCS: 77063; 77067; 77080 ==

== ENCOUNTER 2022-10-19 09:25 | Outpatient (AMB) | payer MEDICARE, SELFPAY ==
[2022-10-19 10:02] VITALS: BP 122/72; PULSE 68; TEMP 36.9; O2SAT 99; BMI 21.5
--- NOTE | 2022-10-19 10:02 | MHC.OFFWIV ---
Intake Vital Signs 10/19/22 10:02 Height 5 ft 5 in Weight 129 lb 6 oz BMI 21.5 BP 122/72 Blood Pressure Location Lt brachial Position Sitting Pulse 68 Pulse Source Pulse Oximeter Temp 98.5 F Temp Source Oral Pulse Oximetry (%) 99 Oxygen Delivery Method Room Air Intake Visit Reasons: Urinary tract infection Intake Note: Patient has frequent urination, bloating, pressure for 3 days. Patient Tobacco Use Status: Never used Tobacco Allergies shellfish derived [SHELLFISH DERIVED] Allergy (Severe, Verified 10/19/22 10:09) Nausea, vomiting, Sever GI upset Sulfa (Sulfonamide Antibiotics) [SULFA (SULFONAMIDE ANTIBIOTICS)] Allergy (Intermediate, Verified 10/19/22 10:09) RASH, hives/rash TB test Allergy (Unknown, Uncoded 10/19/22 10:09) localized swelling, throat swelling Do you need a note to return to daycare/school/sports/work: No HPI HPI Comments History of Present Illness Details This is a 72-year-old female who who presents to the office today for sick visit. Patient complaining of lower abdominal discomfort/cramping and increased urinary frequency. Patient is otherwise feeling well and she denies any fever/chills, flank pain, hematuria, or nausea/vomiting/diarrhea. [facility] Medical History (Updated 10/19/22 @ 10:14 by Nancy Yu [facility]) Dyslipidemia Dysuria Essential hypertension Bharath's thyroiditis Nontoxic multinodular goiter Osteopenia of multiple sites PMR (polymyalgia rheumatica) Postmenopause Surgical History History of thyroidectomy History of tonsillectomy Hx of colonoscopy Family History Father Alzheimer's disease Mother HTN (hypertension) CAD (coronary artery disease) Brother CAD (coronary artery disease) Sister No problems noted. Son No problems noted. Son No problems noted. Social History Housing: Condominium Alcohol intake: current Patient Tobacco Use Status: Never used Tobacco e-Cigarette/Vaping Use: Never Used Second Hand Smoke Exposure: No Current occupational status: retired Cognitive needs: No Hearing needs: No Vision needs: Yes Review of Systems Const All systems reviewed & are unremarkable except as noted in HPI and below Reports no additional complaints Eyes Reports no additional complaints ENT Reports no additional complaints Card Reports no additional complaints Resp Reports no additional complaints GI Reports no additional complaints Reports no additional complaints Musc Reports no additional complaints Skin/Breast Reports system reviewed and no additional complaints, except as documented Neuro Reports no additional complaints Psych Reports no additional complaints Endo Reports no additional complaints Nick/Lymph Reports no additional complaints Aller/Immun Reports no additional complaints Physical Exam Vital Signs: Last Vital Signs Temp 98.5 F 10/19/22 10:02 Pulse 68 10/19/22 10:02 BP 122/72 10/19/22 10:02 Pulse Ox 99 10/19/22 10:02 Oxygen Delivery Method Room Air 10/19/22 10:02 BMI result Body Mass Index 21.5 Const General: cooperative, healthy appearing, no acute distress and well developed Orientation/consciousness: patient oriented x3 HEENT Head: Yes normal to inspection Ears: hearing grossly normal bilaterally General nose exam: Normal external nose present Face and sinus: Yes normal facial exam Mouth: Normal oral and palatal mucosa present Eyes General: appearance normal, both eyes and all related structures Pupils: Equal, round and reactive pupils present EOM: EOMs intact bilaterally Resp Effort & Inspection: normal respiratory effort and no respiratory distress Auscultation: clear to auscultation bilaterally Cardio Rate: regular rate Rhythm: regular rhythm Heart sounds: no gallops, no murmurs and no rubs Peripheral pulses: Peripheral pulses 2+ throughout GI Inspection: No distended Palpation (GI): Soft to palpation and nontender Auscultation: normal bowel sounds Skin General skin exam: no rashes or lesions noted Neuro General: patient oriented x3 Cranial nerves: Yes CN's II-XII intact bilaterally and Yes Equal, round and reactive pupils present Gait exam (Neuro): Normal gait present Motor exam (neuro): 5/5 motor strength present throughout Extrem General: Yes normal to inspection, Yes full ROM and Yes no clubbing, cyanosis or edema Psych Appearance: grossly normal Mental Status: mental status grossly normal Results AMB Urinalysis, Automated UA Leukoctes 0 Lzuma/uL Last Edit by Nancy Yu CMA on 10/19/22 10:23 UA Nitrite Negative Last Edit by Nancy Yu CMA on 10/19/22 10:23 UA Urobilinogen 0.2 mg/dL Last Edit by Nancy Yu, OIL SPRAYING MACHINE OPERATOR on 10/19/22 10:23 UA Protein 0 mg/dL Last Edit by Nancy Yu, OIL SPRAYING MACHINE OPERATOR on 10/19/22 10:23 UA pH 6.0 Last Edit by Nancy Yu, OIL SPRAYING MACHINE OPERATOR on 10/19/22 10:23 UA Blood 0 Miki/uL Last Edit by Nancy Yu, OIL SPRAYING MACHINE OPERATOR on 10/19/22 10:23 UA Specific Valatie 1.010 Last Edit by Nancy Yu, OIL SPRAYING MACHINE OPERATOR on 10/19/22 10:23 UA Ketone Negative Last Edit by Nancy Yu, OIL SPRAYING MACHINE OPERATOR on 10/19/22 10:23 UA Bilirubin 0 mg/dL Last Edit by Nancy Yu, OIL SPRAYING MACHINE OPERATOR on 10/19/22 10:23 UA Glucose 0 mg/dL Last Edit by Nancy Yu, OIL SPRAYING MACHINE OPERATOR on 10/19/22 10:23 Results Reviewed Results Reviewed: Laboratory Last Values Urine pH (Auto) 6.0 10/19/22 10:14 Specific Valatie (Auto) 1.010 10/19/22 10:14 Urine Protein (Auto) 0 mg/dL 10/19/22 10:14 Glucose (UA)(Auto) 0 mg/dL 10/19/22 10:14 Urine Ketones (Auto) Negative 10/19/22 10:14 Urine Blood (Auto) 0 Miki/uL 10/19/22 10:14 Urine Nitrite (Auto) Negative 10/19/22 10:14 Urine Bilirubin (Auto) 0 mg/dL 10/19/22 10:14 Urine Urobilinogen (Auto) 0.2 mg/dL 10/19/22 10:14 Leukocyte Esterase (Auto) 0 Luzma/uL 10/19/22 10:14 Assessment & Plan Assessment & Plan (1) UTI (urinary tract infection): Code(s): N39.0 - Urinary tract infection, site not specified Plan: This is a 72-year-old female presenting with lower abdominal cramping in increased urinary frequency. Urinalysis is negative for nitrites or leukocyte esterase, but patient's urine was extremely clear as she has been drinking a lot of water so unclear how accurate this is. Her history and physical are most consistent with acute uncomplicated cystitis. Patient's vital signs are stable, her physical exam is benign, and she is overall nontoxic appearing. Patient is safe to be discharged home. She was sent home on p.o. cefuroxime 250 mg twice daily x5 days for treatment of presumed urinary tract infection. She was advised to follow-up here or go to the emergency room if she were to develop persistent/worsening symptoms, fevers chills, or flank/back pain. Patient verbalizes her understanding and she is in agreement with the plan. Orders: Orders AMB Urinalysis Automated Today R30.0 - Dysuria Medications: New cefuroxime axetil 250 mg PO BID 10 tabs 0RF Coding Level of Care Code Est Pt Level 3 (50992) Diagnoses UTI (urinary tract infection) N39.0
== END 2022-10-19 10:36 | disposition home or self-care (01) ==
PROVIDERS: PCP Internal Medicine; Visit Provider Physician Assistant Medical
DX: R30.0 Dysuria (principal); N39.0 Urinary tract infection, site not specified
CPT/HCPCS: 81003; 99213

== ENCOUNTER 2023-04-03 08:51 | Outpatient (AMB) | payer MEDICARE, SELFPAY ==
[2023-04-03 09:19] VITALS: BP 110/80; PULSE 75; O2SAT 95; BMI 21.5
--- NOTE | 2023-04-03 09:19 | MHC.PC.OV ---
Vital Signs 04/03/23 09:19 Height 5 ft 5 in Weight 129 lb BMI 21.5 BP 110/80 Blood Pressure Location Lt brachial Position Sitting Pulse 75 Pulse Source Pulse Oximeter Pulse Oximetry (%) 95 Oxygen Delivery Method Room Air Intake Visit Reasons: medication follow up Intake Note: Pt is here today for her med f/u Allergies shellfish derived [SHELLFISH DERIVED] Allergy (Severe, Verified 04/03/23 09:57) Nausea, vomiting, Sever GI upset Sulfa (Sulfonamide Antibiotics) [SULFA (SULFONAMIDE ANTIBIOTICS)] Allergy (Intermediate, Verified 04/03/23 09:57) RASH, hives/rash TB test Allergy (Unknown, Uncoded 04/03/23 09:57) localized swelling, throat swelling Medication List - Last Reconciled 04/03/23 by Zari Dozier MD amlodipine 5 mg PO DAILY atorvastatin 20 mg PO DAILY 90 days cholecalciferol (vitamin D3) 50 mcg PO DAILY denosumab (Prolia) 60 mg subcut [id number] hydroxychloroquine 100 mg PO BID latanoprost 0.005% 1 drp ophthalmic (eye) BEDTIME Tobacco use date assessed: 04/03/23 Fall risk assessment: No Falls in past year Last assessed Fall Risk: 04/03/23 Dental Screening Dental Screen Date: 04/03/23 Did you have a dental visit in the last 12 months?: Yes Did you have a dental problem in the last 6 months where you did not have access to dental care?: No Was dental information given to patient?: Patient has dentist HPI medication follow up HPI Details 72-year-old lady here today for follow-up on her hypertension, hypothyroidism and lipids. Currently on amlodipine 5 mg daily and atorvastatin 20 mg daily. She has started Prolia injection just this week, prescribed by Dr. Chase for her osteoporosis treatment. Has been feeling well, with no complaints at present time [facility] Medical History Osteopenia of multiple sites Postmenopause Bharath's thyroiditis Nontoxic multinodular goiter PMR (polymyalgia rheumatica) Essential hypertension Dyslipidemia Surgical History Hx of colonoscopy History of thyroidectomy History of tonsillectomy Family History Father Alzheimer's disease Mother HTN (hypertension) CAD (coronary artery disease) Brother CAD (coronary artery disease) Sister No problems noted. Son No problems noted. Son No problems noted. Social History Housing: Condominium Alcohol intake: current Patient Tobacco Use Status: Never used Tobacco e-Cigarette/Vaping Use: Never Used Second Hand Smoke Exposure: No Current occupational status: retired Cognitive needs: No Hearing needs: No Vision needs: Yes Questionnaire PHQ-9 Over the last 2 weeks, how often have you been bothered by any of the following problems? 1. Little interest or pleasure in doing things: not at all 2. Feeling down, depressed, or hopeless: not at all 3. Trouble falling or staying asleep, or sleeping too much: not at all 4. Feeling tired or having little energy: not at all 5. Poor appetite or overeating: not at all 6. Feeling bad about yourself - or that you are a failure or have let yourself or your family down: not at all 7. Trouble concentrating on things, such as reading the newspaper or watching television: not at all 8. Moving or speaking so slowly that other people could have noticed. Or the opposite - being so fidgety or restless that you have been moving around a lot more than usual: not at all 9. Thoughts that you would be better off or of hurting yourself in some way: not at all Total score: 0 Depression Screening Interpretation: Negative Depression Screening Done: Yes 63411 - PHQ-9 Billing: Yes Source: Developed by Drs. Andrea Ba, Yoko Murcia, Jesse Gould and colleagues, with an educational sigifredo from [employer]. Thrive Questionnaire Date Thrive assessed: 04/03/23 I am a: Patient What is your living situation today?: I have a steady place to live Within the past 12 months, did the food you bought not last and you didn't have the money to get more?: Never true Do you have trouble paying for medicines?: No Do you have trouble getting transportation to medical appointments?: No Do you have trouble paying your heating and electricity bill?: No Do you have trouble taking care of your child, family member or friend?: No Do you have trouble with day-to-day activities such as bathing, preparing meals, shopping, managing finances, etc.?: No Are you currently unemployed and looking for a job?: No Are you interested in more education?: No THRIVE Score: 0 AUDIT C Alcohol Use Questionnaire (AUDIT-C) 1. How often do you have a drink containing alcohol?: Monthly or less 2. How many drinks containing alcohol do you have on a typical day when you are drinking?: 1 or 2 3. How often do you have six or more drinks on one occasion?: Never Total Score: 1 GER-7 AMB Questionnaire GER-7 Date GER - 7 assessed: 04/03/23 Feeling nervous, anxious, or on edge: 0 = Not at all Not being able to stop or control worryin = Not at all Worrying too much about different things: 0 = Not at all Trouble relaxin = Not at all Being so restless that it is hard to sit still: 0 = Not at all Becoming easily annoyed or irritable: 0 = Not at all Feeling afraid as if something awful might happen: 0 = Not at all Total GER-7 score (0-4 normal; 5-9 mild; 10-14 moderate; 15-21 severe): 0 Source: Developed by Drs. Andrea Ba, Yoko Murcia, Jesse Gould and colleagues, with an educational sigifredo from [employer]. GER-7 Assessment Billing GER-7 Assessment Tool: GER-7 Assessment 41467 Review of Systems Const Denies body aches, Denies daytime sleepiness and Denies weakness Eyes Denies diplopia, Denies irritation and Denies itchy eyes ENT Denies dysphagia, Denies dizziness, Denies mouth lesions and Denies nose pain Card Denies chest pain with activity, Denies diaphoresis, Denies claudication and Denies dyspnea Resp Denies no additional complaints, Denies change in phlegm color, Denies pain with cough and Denies dyspnea GI Denies abdominal pain, Denies belching and Denies dysphagia Denies nocturia Musc Details: Sees Dr. Quiroga for removal of hyperpigmented macules on neck and face Denies muscle cramps and Denies muscle weakness Skin/Breast Denies breast pain, Denies breast mass, Reports lesions and Denies rash Neuro Reports no additional complaints, Denies dizziness and Denies weakness Psych Reports no additional complaints Endo Reports no additional complaints Nick/Lymph Reports no additional complaints Aller/Immun Denies itchy eyes Physical exam (Primary Care) Vital Signs: Last Vital Signs Pulse 75 04/03/23 09:19 BP 110/80 04/03/23 09:19 Pulse Ox 95 04/03/23 09:19 Oxygen Delivery Method Room Air 04/03/23 09:19 BMI result Body Mass Index 21.5 Tobacco/Smoking Status: Tobacco use Status Tobacco use date assessed 04/03/23 04/03/23 09:24 Patient Tobacco Use Status Never used Tobacco 04/03/23 09:24 e-Cigarette/Vaping Use Never Used 04/03/23 09:24 PHQ-9: PHQ-9 Score PHQ-9: Total score 0 04/06/23 23:44 Depression Screening Interpretation: Negative Thrive Assessment: Date of Thrive Assessment Date Thrive assessed 04/03/23 04/03/23 09:24 Const General: cooperative, comfortable and no acute distress Orientation/consciousness: patient oriented x3 HENMT Ears: external ears normal General nose exam: Normal external nose present and No nasal discharge present Face and sinus: Yes face symmetric Mouth: Normal oral and palatal mucosa present, oropharynx normal and moist mucous membranes Eyes General: appearance normal, both eyes and all related structures Conjunctivae: conjunctivae normal Pupils: Equal, round and reactive pupils present EOM: EOMs intact bilaterally Neck Neck: Yes full ROM, Yes no lymphadenopathy and Yes supple Resp Effort & Inspection: normal respiratory effort and able to speak in complete sentences Auscultation: clear to auscultation bilaterally Cardio Rate: regular rate Rhythm: regular rhythm Heart sounds: S1 normal heart sound present and S2 normal heart sound present GI Palpation (GI): Soft to palpation, nontender, no guarding and no masses Skin Other: Diffusely scattered hyperpigmented macules on face neck trunk and extremities Neuro General: patient oriented x3, gait normal, tone normal, moves all extremities, Normal light touch and pain sensation and no focal motor deficits Cranial nerves: Yes Equal, round and reactive pupils present Cognition (Neuro): normal cognition Gait exam (Neuro): Normal gait present Motor exam (neuro): 5/5 motor strength present throughout Extrem General: Yes full ROM, Yes no joint enlargement, Yes no clubbing, cyanosis or edema, Yes no calf tenderness and Yes normal gait Psych Appearance: grossly normal and well kempt Affect: normal affect Assessment and Plan Assessment & Plan (1) Dyslipidemia: Code(s): E78.5 - Hyperlipidemia, unspecified Plan: Ordered a fasting lipid panel . Continue with atorvastatin 20 mg daily (2) Bharath's thyroiditis: Code(s): E06.3 - Autoimmune thyroiditis Plan: Currently euthyroid, will repeat another TSH and free T4 in 6 months (3) Nontoxic multinodular goiter: Code(s): E04.2 - Nontoxic multinodular goiter (4) Essential hypertension: Code(s): I10 - Essential (primary) hypertension Plan: Blood pressure at goal of less than 130/80. Continue with current medication. Reinforced importance of following a low sodium diet, getting regular exercise, and lowering stress levels. Orders: Orders Lipid Panel 04/03/23 E78.5 - Hyperlipidemia, unspecified Thyroid Stimulating Hormone 09/08/23 E04.2 - Nontoxic multinodular goiter, E06.3 - Autoimmune thyroiditis, E78.5 - Hyperlipidemia, unspecified, I10 - Essential (primary) hypertension Free T4 (Free Thyroxine) 09/08/23 E04.2 - Nontoxic multinodular goiter, E06.3 - Autoimmune thyroiditis, E78.5 - Hyperlipidemia, unspecified, I10 - Essential (primary) hypertension US thyroid 09/08/23 E04.2 - Nontoxic multinodular goiter, E06.3 - Autoimmune thyroiditis Lipid Panel 09/08/23 E04.2 - Nontoxic multinodular goiter, E06.3 - Autoimmune thyroiditis, E78.5 - Hyperlipidemia, unspecified, I10 - Essential (primary) hypertension Aspartate Amino Transferase 09/08/23 E04.2 - Nontoxic multinodular goiter, E06.3 - Autoimmune thyroiditis, E78.5 - Hyperlipidemia, unspecified, I10 - Essential (primary) hypertension Alanine Aminotransferase 09/08/23 E04.2 - Nontoxic multinodular goiter, E06.3 - Autoimmune thyroiditis, E78.5 - Hyperlipidemia, unspecified, I10 - Essential (primary) hypertension Medications: Refilled amlodipine schedule next PCP appt 5 mg PO DAILY 90 tabs 3RF Coding Level of Care Code Est Pt Level 3 (17718) Diagnoses Dyslipidemia E78.5 Bharath's thyroiditis E06.3 Nontoxic multinodular goiter E04.2 Essential hypertension I10 Additional Codes GER-7 Assessment Billing - GER-7 Assessment Tool: GER-7 Assessment [id number] ([id number])
== END 2023-04-03 10:17 | disposition home or self-care (01) ==
PROVIDERS: PCP Internal Medicine; Visit Provider Internal Medicine
DX: E78.5 Hyperlipidemia, unspecified (principal); E06.3 Autoimmune thyroiditis; E04.2 Nontoxic multinodular goiter; I10 Essential (primary) hypertension
CPT/HCPCS: 99213

== ENCOUNTER 2023-04-14 07:25 | Outpatient (REF) | payer MEDICARE, SELFPAY ==
[2023-04-14 11:20] LABS: Cholesterol 142 mg/dL (<200); HDL Cholesterol 49 mg/dL (>40); LDL Cholesterol Calculated 75 mg/dL (<100); Triglycerides 91 mg/dL (<150)
== END 2023-04-14 07:26 | disposition home or self-care (01) ==
LOC: HO.HMGCLDS 07:25
PROVIDERS: PCP Internal Medicine; Visit Provider Internal Medicine
DX: E78.5 Hyperlipidemia, unspecified (principal)
CPT/HCPCS: 36415; 80061

== ENCOUNTER 2023-08-07 08:09 | Outpatient (REF) | payer MEDICARE, SELFPAY ==
--- NOTE | ~2023-08-07 | US_ITS ---
EXAMINATION: US THYROID CLINICAL INFORMATION: Nontoxic multinodular goiter. Left thyroidectomy in 1999. Biopsy right lower pole thyroid nodule in July 2021 per history provided. COMPARISON: Thyroid ultrasound 07/23/2022 and 10/31/2020. Ultrasound-guided thyroid biopsy 08/01/2021. TECHNIQUE: Linear transducer grayscale and color Doppler examination with attention to the region of the thyroid. FINDINGS: SIZE: Measurements of the solitary right lobe and nodules are given in sagittal, anteroposterior and transverse dimensions respectively. Right Thyroid Lobe: 6.4 x 2.5 x 2.4 cm, volume 19.8 mL. Previously 5.9 x 2.3 x 2.3 cm, volume 16.3 mL. Parenchyma: The gland echotexture is heterogeneous. Thyroid vascularity is increased. Left Thyroid Lobe: Surgically absent. Isthmus: 0.7 cm in maximum AP dimension. Previously 0.8 cm. Estimated total number of nodules greater than or equal to 1 cm: 1. Religious Educator nodules are described as follows: 1. Location: Right upper pole. Size: 0.6 x 0.3 x 0.5 cm, volume 0.05 mL. Previously: 0.6 x 0.3 x 0.6 cm, volume 0.06 mL. Nodule characteristics: Composition: Spongiform (0). ACR TI-RADS total points: 0. Previous: 0. ACR TI-RADS category: 1. Previous: 1. Significant change in size (>/= 20% in 2 dimensions and minimal increase of 2 mm or 50% or greater increase in volume): No Change in features: No Change in ACR TI-RADS risk category: No 2. Location: Right upper pole. Size: 0.6 x 0.3 x 0.5 cm, volume 0.05 mL. Previously: 0.6 x 0.3 x 0.5 cm, volume 0.05 mL. Nodule characteristics: Composition: Spongiform (0). ACR TI-RADS total points: 0. Previous: 2. ACR TI-RADS category: 1. Previous: 2. Significant change in size (>/= 20% in 2 dimensions and minimal increase of 2 mm or 50% or greater increase in volume): No Change in features: Yes Change in ACR TI-RADS risk category: Yes 3. Location: Right lower pole. Size: 2.3 x 1.4 x 1.8 cm, volume 2.9 mL. Previously: 1.9 x 1.3 x 1.8 cm, volume 2.3 mL on 07/23/2022 and 1.6 x 1.1 x 1.6 cm, volume 1.5 mL on 10/31/2020. Nodule characteristics: Composition: Solid (2). Echogenicity: Hypoechoic (2). Shape: Not taller than wide (0). Margins: Smooth (0). Echogenic Foci: Punctate echogenic foci (3). ACR TI-RADS total points: 7. Previous: 6. ACR TI-RADS category: 5. Previous: 4. Significant change in size (>/= 20% in 2 dimensions and minimal increase of 2 mm or 50% or greater increase in volume): Yes Change in features: Yes Change in ACR TI-RADS risk category: Yes LEFT THYROIDECTOMY BED: No focal mass appreciated in the left thyroid bed. Left thyroid lobe is surgically absent. NODES: No lymphadenopathy is seen in the tissue surrounding the thyroid gland. US/US thyroid IMPRESSION: Right lower pole TR5 thyroid nodule measures 2.3 x 1.4 x 1.8 cm, volume 2.9 mL. This previously measured 1.9 x 1.3 x 1.8 cm, volume 2.3 mL on 07/23/2022 and 1.6 x 1.1 x 1.6 cm, volume 1.5 mL on 10/31/2020. Correlation with prior biopsy results and clinical exam recommended to determine further management including possible biopsy. . ACR TI-RADS RECOMMENDATION REFERENCE: Ultrasound-guided fine-needle aspiration, follow up ultrasound, no further followup. * TR1 (0 point) and TR2 (2 points): No FNA or followup * TR3 (3 points): FNA if more than or equal to 2.5 cm in maximum dimension, follow up ultrasound in 1, 3 and 5 years if 1.5 to 2.4 cm in maximum dimension. * TR4 (4-6 points): FNA if more than or equal to 1.5 cm in maximum dimension, follow up ultrasound in 1, 2, 3 and 5 years if 1 to 1.4 cm in maximum dimension. * TR5 (more than or equal to 7 points): FNA if more than or equal to 1 cm in maximum dimension, follow up ultrasound every year for 5 years if 0.5 to 0.9 cm in maximum dimension. * TR3, TR4 or TR5 nodules that are below the size threshold for follow up receive no followup.
== END 2023-08-07 08:10 | disposition home or self-care (01) ==
LOC: HO.HMGCX 08:09
PROVIDERS: PCP Internal Medicine; Visit Provider Internal Medicine Endocrinology, Diabetes & Metabolism
DX: E04.2 Nontoxic multinodular goiter (principal)
CPT/HCPCS: 76536

== ENCOUNTER 2023-09-27 07:19 | Outpatient (REF) | payer MEDICARE, SELFPAY ==
[2023-09-27 11:52] LABS: Alanine Aminotransferase 13 U/L (0-31); Aspartate Amino Transferase 14 U/L (5-31); Cholesterol 136 mg/dL (<200); HDL Cholesterol 54 mg/dL (>40); LDL Cholesterol Calculated 72 mg/dL (<100); Triglycerides 54 mg/dL (<150)
[2023-09-27 12:04] LABS: Free T4 (Free Thyroxine) 1.14 ng/dL (0.71-1.85); Thyroid Stimulating Hormone 1.23 uIU/mL (0.32-4.0)
[2023-09-27 12:10] LABS: Free T4 (Free Thyroxine) 1.08 ng/dL (0.71-1.85); Thyroid Stimulating Hormone 1.23 uIU/mL (0.32-4.0)
== END 2023-09-27 07:20 | disposition home or self-care (01) ==
LOC: HO.HMGCLDS 07:19
PROVIDERS: Internal Medicine; PCP Internal Medicine; Visit Provider Internal Medicine
DX: E06.3 Autoimmune thyroiditis (principal); E04.2 Nontoxic multinodular goiter; E78.5 Hyperlipidemia, unspecified; I10 Essential (primary) hypertension
CPT/HCPCS: 36415; 80061; 84439; 84443; 84450; 84460

== ENCOUNTER 2023-09-29 10:32 | Outpatient (AMB) | payer MEDICARE, SELFPAY ==
--- NOTE | 2023-09-29 10:36 | A.OFFPC_ITS ---
Vital Signs 09/29/23 10:40 Height 5 ft 5 in Weight 126 lb BMI 21.0 BP 110/80 Blood Pressure Location Lt brachial Position Sitting Pulse 67 Pulse Source Pulse Oximeter Pulse Oximetry (%) 98 Oxygen Delivery Method Room Air Intake Visit Reasons: medication follow up Intake Note: Pt is here today to f/u labs and thyroid u/s Allergies shellfish derived [SHELLFISH DERIVED] Allergy (Severe, Verified 09/29/23 11:31) Nausea, vomiting, Sever GI upset Sulfa (Sulfonamide Antibiotics) [SULFA (SULFONAMIDE ANTIBIOTICS)] Allergy (Intermediate, Verified 09/29/23 11:31) RASH, hives/rash TB test Allergy (Unknown, Uncoded 09/29/23 11:31) localized swelling, throat swelling Medication List - Last Reconciled 09/29/23 by Zari Dozier MD amlodipine 5 mg PO DAILY atorvastatin 20 mg PO DAILY 90 days cholecalciferol (vitamin D3) 50 mcg PO DAILY denosumab (Prolia) 60 mg subcut [id number] hydroxychloroquine 100 mg PO BID latanoprost 0.005% 1 drp ophthalmic (eye) BEDTIME Tobacco use date assessed: 09/29/23 Fall risk assessment: No Falls in past year Last assessed Fall Risk: 09/29/23 Dental Screening Dental Screen Date: 09/29/23 Did you have a dental visit in the last 12 months?: Yes Did you have a dental problem in the last 6 months where you did not have access to dental care?: Yes Was dental information given to patient?: Patient has dentist HPI medication follow up HPI Details 73-year-old lady with hypertension, hype rlipidemia, and osteoporosis, here today for follow-up. She has been feeling well, with no complaints at present time, had thyroid ultrasound done which showed right thyroid lobe nodule in the lower pole with measures 2.3 x 1.4 x 1.8 cm, volume 2.9 mL. This previously measured 1.9 x 1.3 x 1.8 cm, volume 2.3 mL on 07/23/2022 and 1.6 x 1.1 x 1.6 cm, volum e 1.5 mL on 10/31/2020. She has an appointment with Dr. Ambrocio on 10/06/2023 for further evaluation management for thyroid nodule. She remains asymptomatic. She is also here for follow-up on results of her recent fasting lipid panel currently on atorvastatin 20 mg taken 1 every day. Has hypertension , with blood pressure well controlled on amlodipine taken 5 mg daily. [facility] Medical History (Updated 10/04/23 @ 00:43 by Zari Dozier MD) Right thyroid nodule Osteopenia of multiple sites Postmenopause Bharath's thyroiditis Nontoxic multinodular goiter PMR (polymyalgia rheumatica) Essential hypertension Dyslipidemia Surgical History Hx of colonoscopy History of thyroidectomy History of tonsillectomy Family History Father Alzheimer's disease Mother HTN (hypertension) CAD (coronary artery disease) Brother CAD (coronary artery disease) Sister No problems noted. Son No problems noted. Son No problems noted. [facility] Alcohol intake: current Patient Tobacco Use Status: Never used Tobacco e-Cigarette/Vaping Use: Never Used Second Hand Smoke Exposure: No Current occupational status: retired Cognitive needs: No Hearing needs: No Vision needs: Yes Questionnaire PHQ-9 Over the last 2 weeks, how often have you been bothered by any of the following problems? 1. Little interest or pleasure in doing things: not at all 2. Feeling down, depressed, or hopeless: not at all 3. Trouble falling or staying asleep, or sleeping too much: not at all 4. Feeling tired or having little energy: not at all 5. Poor appetite or overeating: not at all 6. Feeling bad about yourself - or that you are a failure or have let yourself or your family down: not at all 7. Trouble concentrating on things, such as reading the newspaper or watching television: not at all 8. Moving or speaking so slowly that other people could have noticed. Or the opposite - being so fidgety or restless that you have been moving around a lot more than usual: not at all 9. Thoughts that you would be better off or of hurting yourself in some way: not at all Total score: 0 Depression Screening Interpretation: Negative Depression Screening Done: Yes 16379 - PHQ-9 Billing: Yes Source: Developed by Drs. Andrea Ba, Yoko Murcia, Jesse Gould and colleagues, with an educational sigifredo from [employer]. Thrive Questionnaire Date Thrive assessed: 09/29/23 I am a: Patient What is your living situation today?: I have a steady place to live Within the past 12 months, did the food you bought not last and you didn't have the money to get more?: Never true Within the past 12 months, did you worry whether your food would run out before you got money to buy more?: Never true Do you have trouble paying for medicines?: No Do you have trouble getting transportation to medical appointments?: No Do you have trouble paying your heating and electricity bill?: No Do you have trouble taking care of your child, family member or friend?: No Do you have trouble with day-to-day activities such as bathing, preparing meals, shopping, managing finances, etc.?: No Are you currently unemployed and looking for a job?: No Are you interested in more education?: No Please select the resources that you would like help with: Housing/Long Term Currently or been in a relationship where the following occur: No concerns reported THRIVE Score: 0 AUDIT C Alcohol Use Questionnaire (AUDIT-C) 1. How often do you have a drink containing alcohol?: 2-4 times a month 2. How many drinks containing alcohol do you have on a typical day when you are drinking?: 1 or 2 3. How often do you have six or more drinks on one occasion?: Never Total Score: 2 GER-7 AMB Questionnaire GER-7 Date GER - 7 assessed: 09/29/23 Feeling nervous, anxious, or on edge: 0 = Not at all Not being able to stop or control worryin = Not at all Worrying too much about different things: 0 = Not at all Trouble relaxin = Not at all Being so restless that it is hard to sit still: 0 = Not at all Becoming easily annoyed or irritable: 0 = Not at all Feeling afraid as if something awful might happen: 0 = Not at all Total GER-7 score (0-4 normal; 5-9 mild; 10-14 moderate; 15-21 severe): 0 Source: Developed by Drs. Andrea Ba, Yoko Murcia, Jesse Gould and colleagues, with an educational sigifredo from [employer]. GER-7 Assessment Billing GER-7 Assessment Tool: GER-7 Assessment 39733 Review of Systems Const Denies body aches, Denies daytime sleepiness and Denies weakness Eyes Denies diplopia, Denies irritation and Denies itchy eyes ENT Denies dysphagia, Denies dizziness, Denies mouth lesions and Denies nose pain Card Denies chest pain with activity, Denies diaphoresis, Denies claudication and Denies dyspnea Resp Denies no additional complaints, Denies change in phlegm color, Denies pain with cough and Denies dyspnea GI Denies abdominal pain, Denies belching and Denies dysphagia Denies nocturia Musc Details: Sees Dr. Quiroga for removal of hyperpigmented macules on neck and face Denies muscle cramps and Denies muscle weakness Skin/Breast Denies breast pain, Denies breast mass, Reports lesions and Denies rash Neuro Reports no additional complaints, Denies dizziness and Denies weakness Psych Reports no additional complaints Endo Reports no additional complaints Nick/Lymph Reports no additional complaints Aller/Immun Denies itchy eyes Physical exam (Primary Care) Vital Signs: Last Vital Signs Pulse 67 09/29/23 10:40 BP 110/80 09/29/23 10:40 Pulse Ox 98 09/29/23 10:40 Oxygen Delivery Method Room Air 09/29/23 10:40 BMI result Body Mass Index 21.0 Tobacco/Smoking Status: Tobacco use Status Tobacco use date assessed 09/29/23 09/29/23 10:37 Patient Tobacco Use Status Never used Tobacco 09/29/23 10:37 e-Cigarette/Vaping Use Never Used 09/29/23 10:37 PHQ-9: PHQ-9 Score PHQ-9: Total score 0 09/29/23 11:41 Depression Screening Interpretation: Negative Thrive Assessment: Date of Thrive Assessment Date Thrive assessed 09/29/23 09/29/23 10:37 Currently or been in a relationship where the following occur: No concerns reported Const General: cooperative, comfortable and no acute distress Orientation/consciousness: patient oriented x3 HENMT Ears: external ears normal General nose exam: Normal external nose present and No nasal discharge present Face and sinus: Yes face symmetric Mouth: Normal oral and palatal mucosa present, oropharynx normal and moist mucous membranes Eyes General: appearance normal, both eyes and all related structures Conjunctivae: conjunctivae normal Pupils: Equal, round and reactive pupils present EOM: EOMs intact bilaterally Neck Neck: Yes full ROM, Yes no lymphadenopathy and Yes supple Resp Effort & Inspection: normal respiratory effort and able to speak in complete sentences Auscultation: clear to auscultation bilaterally Cardio Rate: regular rate Rhythm: regular rhythm Heart sounds: S1 normal heart sound present and S2 normal heart sound present GI Palpation (GI): Soft to palpation, nontender, no guarding and no masses Skin Other: Diffusely scattered hyperpigmented macules on face neck trunk and extremities Neuro General: patient oriented x3, gait normal, tone normal, moves all extremities, Normal light touch and pain sensation and no focal motor deficits Cranial nerves: Yes Equal, round and reactive pupils present Cognition (Neuro): normal cognition Gait exam (Neuro): Normal gait present Motor exam (neuro): 5/5 motor strength present throughout Extrem General: Yes full ROM, Yes no joint enlargement, Yes no clubbing, cyanosis or edema, Yes no calf tenderness and Yes normal gait Psych Appearance: grossly normal and well kempt Affect: normal affect Results Reviewed Results Reviewed: Name: Carla Godinez Age/[facility]: 73/F [facility] 1950 [id number]#: [id number] Attend Dr: Zari Dozier MD Re09/27/23 Status: DEP REF Location: [facility] Disch: SPEC : [id number] ANABELLA: 09/27/23 STATUS: COMP REQ : [id number] RECD: 09/27/[address]: Zari Dozier MD COMP: 09/27/23 ENTERED: 09/27/[address]: ORDERED: AST, ALT, Lipid Panel, Free T4, TSH Test Result Flag Reference AST (GOT) 14 5-31 U/L ALT (GPT) 13 0-31 U/L Triglyceride 54 <150 mg/dL Desirable Triglyceride: less than 150 mg/dL Borderline High Triglyceride 150-199 mg/dL High Triglyceride: 200-499 mg/dL Very High Triglyceride: greater than or equal to 5OO mg/dL Cholesterol 136 <200 mg/dL Desirable Cholesterol: less than 200 mg/dL Borderline High Cholesterol: 200-239 mg/dL High Cholesterol: greater than 239 mg/dL LDL Calculated 72 <100 mg/dL Desirable LDL: less than 100 mg/dL Near Optimal/Above Optimal LDL: 110-129 mg/dL Borderline High LDL: 130-159 mg/dL High LDL: 160-189 mg/dL Very High LDL: greater than or equal to 190 mg/dL HDL 54 >40 mg/dL Desirable HDL: greater than 40 mg/dL Note: This HDL assay may give artificially low results in patients with liver disease. Free T4 1.08 0.71-1.85 ng/dL TSH 3rd Gen. 1.23 0.32-4.0 uIU/mL TSH 3rd Generation ([facility]) Assessment and Plan Assessment & Plan (1) Dyslipidemia: Code(s): E78.5 - Hyperlipidemia, unspecified Plan: Reviewed recent fasting lipid profile with patient with levels within normal limits . Decreased atorvastatin dosing frequency to 20 mg taken 1 every other day , in addition to adherence to low-cholesterol diet and regular exercise, at least 30 minutes 3 to 4 times a week. Advised patient to make healthy food choices, eat more fruits, vegetables, whole grains, wild caught fish and low- fat dairy. Limit amount of meat and fried or fatty food products, as well as processed foods and fast foods. Follow-up scheduled with repeat fasting lipid panel in months. (2) Essential hypertension: Code(s): I10 - Essential (primary) hypertension (3) Nontoxic multinodular goiter: Code(s): E04.2 - Nontoxic multinodular goiter (4) Right thyroid nodule: Code(s): E04.1 - Nontoxic single thyroid nodule Plan: Has an upcoming appointment with Dr. Ambrocio for follow-up on 10/06/2023 Medications: Changed From atorvastatin 20 mg PO DAILY 90 days 90 tabs 1RF To atorvastatin 20 mg PO Q2D 90 days 45 tabs 1RF Coding Level of Care Code Est Pt Level 4 (02319) Complex EM visit Add On G2211 Diagnoses Dyslipidemia E78.5 Essential hypertension I10 Nontoxic multinodular goiter E04.2 Right thyroid nodule E04.1 Additional Codes GER-7 Assessment Billing - GER-7 Assessment Tool: GER-7 Assessment 25987 ([id number])
[2023-09-29 10:40] VITALS: BP 110/80; PULSE 67; O2SAT 98; BMI 21.0
== END 2023-09-29 12:54 | disposition home or self-care (01) ==
PROVIDERS: PCP Internal Medicine; Visit Provider Internal Medicine
DX: E78.5 Hyperlipidemia, unspecified (principal); I10 Essential (primary) hypertension; E04.2 Nontoxic multinodular goiter; E04.1 Nontoxic single thyroid nodule
CPT/HCPCS: 99214; G2211

== ENCOUNTER 2023-10-06 10:20 | Outpatient (AMB) | payer MEDICARE, SELFPAY ==
--- NOTE | 2023-10-06 10:21 | MHC.OFFVIS ---
Vital Signs 10/06/23 10:22 Height 5 ft 5 in Weight 126 lb 8.725 oz BMI 21.1 BP 122/76 Blood Pressure Location Lt brachial Position Sitting Pulse 83 Pulse Source Pulse Oximeter Intake Visit Reasons: F/U NTMNG-confirmed Intake Note: Patient present today for NTMNG follow up visit. Healthcare Management Required: No Accompanied by: Spouse Allergies shellfish derived [SHELLFISH DERIVED] Allergy (Severe, Verified 10/06/23 10:26) Nausea, vomiting, Sever GI upset Sulfa (Sulfonamide Antibiotics) [SULFA (SULFONAMIDE ANTIBIOTICS)] Allergy (Intermediate, Verified 10/06/23 10:26) RASH, hives/rash TB test Allergy (Unknown, Uncoded 10/06/23 10:26) localized swelling, throat swelling Medication List - Last Reconciled 10/06/23 by Andrea Ambrocio MD amlodipine 5 mg PO DAILY atorvastatin 20 mg PO Q2D 90 days cholecalciferol (vitamin D3) 50 mcg PO DAILY denosumab (Prolia) 60 mg subcut [id number] hydroxychloroquine 100 mg PO BID latanoprost 0.005% 1 drp ophthalmic (eye) BEDTIME HPI Comments Details: 73 YO Female with a PMHx of a NTMNG who is seen in F/U. She was previously followed by Dr. Vargas. The patient last saw Dr. Shell on 08/12/2022 She had a prior L hemithyroidectomy for unknown reasons in 1999. She reports that the surgical pathology was benign. She has been followed yearly for multiple nodules within her R lobe. 08/01/2021 she underwent an IR guided FNA biopsy of her RLP 1.8 cm thyroid nodule with benign cytology. Repeat thyroid US unchanged. She denies any symptoms of hyper or hypothyroidism today. She reports feeling well and has no complaints. Thyroid US: 07/23/22 Right Thyroid Lobe: 5.9 x 2.3 x 2.3 cm, volume 16.3 mL. Previously 6.5 x 2.3 x 2.0 cm, volume 15.6 mL. Parenchyma: The gland echotexture is heterogeneous. Thyroid vascularity is increased. Left Thyroid Lobe: Surgically absent. Isthmus: 0.8 cm in maximum AP dimension. Previously 0.9 cm. Estimated total number of nodules greater than or equal to 1 cm: 1. Engineering Laboratory Technician nodules are described as follows: 1.? Location: Right superior. ?? ? Size: 0.6 x 0.3 x 0.5 cm, volume 0.05 mL. ?? ? Previously: New since the previous study. ?? ? Nodule characteristics: ?? ? Composition: Mixed cystic and solid (1). ?? ? Echogenicity: Isoechoic (1). ?? ? Shape: Not taller than wide (0). ?? ? Margins: Smooth (0). ?? ? Echogenic Foci: None (0).? ACR TI-RADS total points: 2 ?? ? ACR TI-RADS category: 2 2.? Location: Right superior. ?? ? Size: 0.6 x 0.3 x 0.6 cm, volume 0.06 mL. ?? ? Previously: 0.6 x 0.3 x 0.6 cm, volume 0.06 mL. ?? ? Nodule characteristics: ?? ? Composition: Spongiform (0). ?? ? Echogenicity: Anechoic (0). ?? ? Shape: Not taller than wide (0). ?? ? Margins: Smooth (0). ?? ? Echogenic Foci: None (0).? ACR TI-RADS total points: 0 Previous: 0 ?? ? ACR TI-RADS category: 1 Previous: 1 ? Significant change in size (>/= 20% in 2 dimensions and minimal increase of 2 mm or 50% or greater increase in volume): No ?? ? Change in features: No ?? ? Change in ACR TI-RADS risk category: No 3.? Location: Right superior. ?? ? Size: 0.6 x 0.3 x 0.5 cm, volume 0.05 mL. ?? ? Previously: 0.3 x 0.2 x 0.4 cm, volume 0.02 mL. ?? ? Nodule characteristics: ?? ? Composition: Solid (2). ?? ? Echogenicity: Isoechoic (1). ?? ? Shape: Not taller than wide (0). ?? ? Margins: Smooth (0). ?? ? Echogenic Foci: None (0).? ACR TI-RADS total points: 3 Previous: 3 ?? ? ACR TI-RADS category: 3 Previous: 3 ? Significant change in size (>/= 20% in 2 dimensions and minimal increase of 2 mm or 50% or greater increase in volume): No ?? ? Change in features: No ?? ? Change in ACR TI-RADS risk category: No 4.? Location: Right inferior. ?? ? Size: 1.9 x 1.3 x 1.8 cm, volume 2.27 mL. ?? ? Previously: 1.6 x 1.1 x 1.6 cm, volume 1.50 mL. ?? ? Nodule characteristics: ?? ? Composition: Solid (2). ?? ? Echogenicity: Hypoechoic (2). ?? ? Shape: Not taller than wide (0). ?? ? Margins: Irregular (2). ?? ? Echogenic Foci: None (0).? ACR TI-RADS total points: 6 Previous: 5 ?? ? ACR TI-RADS category: 4 Previous: 4 ? Significant change in size (>/= 20% in 2 dimensions and minimal increase of 2 mm or 50% or greater increase in volume): Yes ?? ? Change in features: No ?? ? Change in ACR TI-RADS risk category: No NODES: No lymphadenopathy is seen in the tissue surrounding the thyroid gland. Labs: Laboratory Tests 08/28/21 13:12 TSH 1.08 Free T4 1.14 recent thyroid ultrasound showed increase in the size of the right lower pole nodule [facility] Medical History (Updated 10/04/23 @ 00:43 by Zair Dozier MD) Right thyroid nodule Osteopenia of multiple sites Postmenopause Bharath's thyroiditis Nontoxic multinodular goiter PMR (polymyalgia rheumatica) Essential hypertension Dyslipidemia Surgical History Hx of colonoscopy History of thyroidectomy History of tonsillectomy Family History Father Alzheimer's disease Mother HTN (hypertension) CAD (coronary artery disease) Brother CAD (coronary artery disease) Sister No problems noted. Son No problems noted. Son No problems noted. Social History Housing: Condominium Alcohol intake: current Patient Tobacco Use Status: Never used Tobacco e-Cigarette/Vaping Use: Never Used Second Hand Smoke Exposure: No Current occupational status: retired Cognitive needs: No Hearing needs: No Vision needs: Yes Physical Exam Const Other: Thyroid gland is normal size weighs about 15 g. There are no palpable thyroid nodules Assessment & Plan Assessment & Plan (1) Right thyroid nodule: Code(s): E04.1 - Nontoxic single thyroid nodule Category: Medical Plan: This 73-year-old white female with a history of multinodular goiter status post left lobectomy with dominant right thyroid nodule status post FNA 07/2021 with benign cytology. She appears to be clinically and biochemically euthyroid. Plan is that the patient follow-up with Dr. Shane an waste management specialist the just joined our practice with expertise in thyroid ultrasound to see if the right nodule needs re-biopsy Coding Level of Care Code Est Pt Level 3 (51705) Diagnoses Right thyroid nodule E04.1
[2023-10-06 10:22] VITALS: BP 122/76; PULSE 83; BMI 21.1
== END 2023-10-06 10:42 | disposition home or self-care (01) ==
PROVIDERS: PCP Internal Medicine; Visit Provider Internal Medicine Endocrinology, Diabetes & Metabolism
DX: E04.1 Nontoxic single thyroid nodule (principal)
CPT/HCPCS: 99213

== ENCOUNTER → 2023-10-06 10:20 | Outpatient (BNVA) | payer MEDICARE, SELFPAY | PROVIDERS: PCP Internal Medicine; Visit Provider Internal Medicine Endocrinology, Diabetes & Metabolism | DX: E04.1 Nontoxic single thyroid nodule (principal) | CPT/HCPCS: 99212 ==

== ENCOUNTER 2023-12-31 07:29 | Outpatient (REF) | payer MEDICARE, SELFPAY ==
[2023-12-31 10:35] LABS: Alanine Aminotransferase 16 U/L (0-31); Anion Gap 11 (12-20); Aspartate Amino Transferase 18 U/L (5-31); Blood Urea Nitrogen 12 mg/dL (9-16); Calcium 9.6 mg/dL (8.4-10.2); Carbon Dioxide 28 mmol/L (22-29); Chloride 107 mmol/L (96-108); Cholesterol 143 mg/dL (<200); Estimated Glomerular Filt Rate > 60; Glucose Fasting 110 mg/dL (60-99); HDL Cholesterol 53 mg/dL (>40); LDL Cholesterol Calculated 77 mg/dL (<100); Potassium 4.5 mmol/L (3.3-5.1); Sodium 141 mmol/L (135-145); Triglycerides 65 mg/dL (<150)
== END 2023-12-31 07:30 | disposition home or self-care (01) ==
LOC: HO.HMGCLDS 07:29
PROVIDERS: PCP Internal Medicine; Visit Provider Internal Medicine
DX: I10 Essential (primary) hypertension (principal); E78.5 Hyperlipidemia, unspecified
CPT/HCPCS: 36415; 80048; 80061; 84450; 84460

== ENCOUNTER 2024-01-02 08:31 | Outpatient (AMB) | payer MEDICARE, SELFPAY ==
--- NOTE | 2024-01-02 08:29 | A.OFFPC_ITS ---
Intake Visit Reasons: 3 Month F/U Intake Note: Pt is having a telehealth f/u labs I phone Allergies shellfish derived [SHELLFISH DERIVED] Allergy (Severe, Verified 01/02/24 08:29) Nausea, vomiting, Sever GI upset Sulfa (Sulfonamide Antibiotics) [SULFA (SULFONAMIDE ANTIBIOTICS)] Allergy (Intermediate, Verified 01/02/24 08:29) RASH, hives/rash TB test Allergy (Unknown, Uncoded 01/02/24 08:29) localized swelling, throat swelling Medication List - Last Reconciled 01/02/24 by Zari Dozier MD amlodipine 5 mg PO DAILY atorvastatin 20 mg PO Q2D 90 days cholecalciferol (vitamin D3) 50 mcg PO DAILY denosumab (Prolia) 60 mg subcut [id number] hydroxychloroquine 100 mg PO BID latanoprost 0.005% 1 drp ophthalmic (eye) BEDTIME Tobacco use date assessed: 01/02/24 Fall risk assessment: No Falls in past year Last assessed Fall Risk: 01/02/24 Dental Screening Dental Screen Date: 01/02/24 Did you have a dental visit in the last 12 months?: Yes Did you have a dental problem in the last 6 months where you did not have access to dental care?: Yes Was dental information given to patient?: Patient has dentist HPI 3 Month F/U HPI Details 73-year-old lady with hypertension and d yslipidemia, here today for follow-up. She has been compliant with taking her medications, compliant with diet and stays active, walks regularly for exercise. She had recent fasting labs done which showed slightly elevated fasting glucose and normal electrolytes, liver enzymes and fasting lipids are within normal limits as well. Has been feeling well with no complaints at present time [facility] Medical History Right thyroid nodule Osteopenia of multiple sites Postmenopause Bharath's thyroiditis Nontoxic multinodular goiter PMR (polymyalgia rheumatica) Essential hypertension Dyslipidemia Surgical History Hx of colonoscopy History of thyroidectomy History of tonsillectomy Family History Father Alzheimer's disease Mother HTN (hypertension) CAD (coronary artery disease) Brother CAD (coronary artery disease) Sister No problems noted. Son No problems noted. Son No problems noted. Social History Housing: Condominium Alcohol intake: current Patient Tobacco Use Status: Never used Tobacco e-Cigarette/Vaping Use: Never Used Second Hand Smoke Exposure: No Current occupational status: retired Cognitive needs: No Hearing needs: No Vision needs: Yes Questionnaire Thrive Questionnaire Date Thrive assessed: 09/27/23 I am a: Patient What is your living situation today?: I have a steady place to live Within the past 12 months, did the food you bought not last and you didn't have the money to get more?: Never true Within the past 12 months, did you worry whether your food would run out before you got money to buy more?: Never true Do you have trouble paying for medicines?: No Do you have trouble getting transportation to medical appointments?: No Do you have trouble paying your heating and electricity bill?: No Do you have trouble taking care of your child, family member or friend?: No Do you have trouble with day-to-day activities such as bathing, preparing meals, shopping, managing finances, etc.?: No Are you currently unemployed and looking for a job?: No Are you interested in more education?: No Please select the resources that you would like help with: None Currently or been in a relationship where the following occur: No concerns reported THRIVE Score: 0 GER-7 AMB Questionnaire GER-7 Date GER - 7 assessed: 09/29/23 Source: Developed by Drs. Andrea Ba, Yoko Murcia, Jesse Gould and colleagues, with an educational sigifredo from [employer]. Review of Systems Const Denies body aches, Denies fatigue, Denies headache(s) and Denies weakness Eyes Denies change in vision ENT Denies dizziness, Denies headache(s) and Denies nasal congestion Card Denies chest pain, Denies lightheadedness, Denies palpitations and Denies dyspnea Resp Denies cough and Denies dyspnea GI Denies abdominal pain, Denies change in bowel habits and Denies heartburn Denies urinary frequency and Denies dysuria Musc Reports no additional complaints Neuro Denies dizziness, Denies headache(s) and Denies weakness Endo Denies fatigue, Denies polydipsia, Denies polyuria and Denies palpitations Physical exam (Primary Care) Tobacco/Smoking Status: Tobacco use Status Tobacco use date assessed 01/02/24 01/02/24 08:30 Patient Tobacco Use Status Never used Tobacco 01/02/24 08:30 e-Cigarette/Vaping Use Never Used 01/02/24 08:30 Thrive Assessment: Date of Thrive Assessment Date Thrive assessed 09/27/23 01/02/24 08:30 Currently or been in a relationship where the following occur: No concerns re ported Telehealth Telehealth Telehealth Platform: [employer] Location of provider rendering services: practice address Location of patient: address on file Patient Identification confirmed using: Name, : Yes Telehealth method: video Patient verbally consented to treatment: Yes Patient verbally consented to billing insurance company: Yes Patient informed of any privacy concerns related to visit: Yes Minutes spent on Phone/Video with Pt.: 15 Results Reviewed Results Reviewed: Name: Carla Godinez Age/Sex: 73/F : 1950 Unit#: [id number] Attend Dr: Zari Dozier MD Re12/31/23 Status: DEP REF Location: [facility] Disch: SPEC : [id number] ANABELLA: 12/31/23 STATUS: COMP REQ : [id number] RECD: 12/31/[address]: Zari Dozier MD COMP: 12/31/23 ENTERED: 12/31/23-[address]: ORDERED: Met Prof Fast, AST, ALT, Lipid Panel Test Result Flag Reference Sodium 141 135-145 mmol/L Potassium 4.5 3.3-5.1 mmol/L CL 107 96-108 mmol/L CO2 28 22-29 mmol/L Gap 11 L 12-20 BUN 12 9-16 mg/dL Creat 0.76 0.5-1.4 mg/dL EGFR > 60 NOTE: For -[place]rist[place] individuals, multiply the result by 1.210. Chronic Kidney Disease: Estimated GFR < 60 mL/min/1.73m2 Severe Kidney Disease: Estimated GFR < 15 mL/min/1.73m2 FBS 110 H 60-99 mg/dL A fasting glucose from 100-125 mg/dl is considered impaired (pre-diabetes). CA 9.6 8.4-10.2 mg/dL AST (GOT) 18 5-31 U/L ALT (GPT) 16 0-31 U/L Triglyceride 65 <150 mg/dL Desirable Triglyceride: less than 150 mg/dL Borderline High Triglyceride 150-199 mg/dL High Triglyceride: 200-499 mg/dL Very High Triglyceride: greater than or equal to 5OO mg/dL Cholesterol 143 <200 mg/dL Desirable Cholesterol: less than 200 mg/dL Borderline High Cholesterol: 200-239 mg/dL High Cholesterol: greater than 239 mg/dL LDL Calculated 77 <100 mg/dL Desirable LDL: less than 100 mg/dL Near Optimal/Above Optimal LDL: 110-129 mg/dL Borderline High LDL: 130-159 mg/dL High LDL: 160-189 mg/dL Very High LDL: greater than or equal to 190 mg/dL HDL 53 >40 mg/dL Desirable HDL: greater than 40 mg/dL Coding Level of Care Code Tele Est Pt Level 3 (39855) Diagnoses Dyslipidemia E78.5 Assessment & Plan Assessment & Plan (1) Dyslipidemia: Code(s): E78.5 - Hyperlipidemia, unspecified Category: Medical Plan: Reviewed recent fasting lab results with patient with lipids levels within normal limits. Will continue on atorvastatin 20 mg 1 tablet taken every other day. Continue with adhering to healthy eating habits getting regular exercise. See her back for follow-up in six-month Orders: Orders Alanine Aminotransferase 06/24/24 E78.5 - Hyperlipidemia, unspecified, I10 - Essential (primary) hypertension Basic Metabolic Panel Fasting 06/24/24 E78.5 - Hyperlipidemia, unspecified, I10 - Essential (primary) hypertension Lipid Panel 06/24/24 E78.5 - Hyperlipidemia, unspecified, I10 - Essential (primary) hypertension Aspartate Amino Transferase 06/24/24 E78.5 - Hyperlipidemia, unspecified, I10 - Essential (primary) hypertension
== END 2024-01-02 09:34 | disposition home or self-care (01) ==
LOC: HO.HMCC 08:31
PROVIDERS: PCP Internal Medicine; Visit Provider Internal Medicine
DX: E78.5 Hyperlipidemia, unspecified (principal)

== ENCOUNTER 2024-01-26 09:46 | Outpatient (AMB) | payer MEDICARE, SELFPAY ==
[2024-01-26 09:48] VITALS: BP 126/82; PULSE 58; BMI 21.2
--- NOTE | 2024-01-26 09:48 | MHC.OFFVIS ---
Vital Signs 01/26/24 09:48 Height 5 ft 5 in Weight 127 lb 3.307 oz BMI 21.2 BP 126/82 Blood Pressure Location Lt brachial Position Sitting Pulse 58 Pulse Source Pulse Oximeter Intake Visit Reasons: MNG Intake Note: Patient present today for MNG office visit. Paint Line Supervisor Required: No Accompanied by: Self / Same As Patient Allergies shellfish derived [SHELLFISH DERIVED] Allergy (Severe, Verified 01/26/24 09:52) Nausea, vomiting, Sever GI upset Sulfa (Sulfonamide Antibiotics) [SULFA (SULFONAMIDE ANTIBIOTICS)] Allergy (Intermediate, Verified 01/26/24 09:52) RASH, hives/rash TB test Allergy (Unknown, Uncoded 01/26/24 09:52) localized swelling, throat swelling Medication List - Last Reconciled 01/26/24 by Gypsy Shane MD amlodipine 5 mg PO DAILY atorvastatin 20 mg PO Q2D 90 days cholecalciferol (vitamin D3) 50 mcg PO DAILY denosumab (Prolia) 60 mg subcut [id number] hydroxychloroquine 100 mg PO BID latanoprost 0.005% 1 drp ophthalmic (eye) BEDTIME HPI Comments Details: 73 YO Female with a PMHx of a NTMNG who is seen in F/U Prior HPI She had a prior L hemithyroidectomy for unknown reasons in 1999. She reports that the surgical pathology was benign. She has been followed yearly for multiple nodules within her R lobe. 08/01/2021 she underwent an IR guided FNA biopsy of her RLP 1.8 cm thyroid nodule with benign cytology. June 2022, ultrasound showed stable size of the right superior subcentimeter nodules. The dominant right inferior nodule showed increase in size from 1.6 cm in the largest dimension to 1.8 cm. Volume also went up from 1.5 mL to 2.2 mL. Decision was made to repeat ultrasound in 1 year, she had a repeat ultrasound in July 2023 which showed stable size of the right lower pole dominant nodule over the past year.Size: 2.3 x 1.4 x 1.8 cm, volume 2.9 mL. Previously: 1.9 x 1.3 x 1.8 cm, volume 2.3 mL on 07/23/2022 and 1.6 x 1.1 x 1.6 cm, volume 1.5 mL on 10/31/2020. Denies any compressive symptoms. No personal history of head or neck radiation. Denies any family history of thyroid disease or thyroid cancer. She denies any symptoms of hyper or hypothyroidism today. She reports feeling well and has no complaints. Physical exam General: sitting comfortably in no acute distress HEENT: normocephalic/atraumatic, moist oral mucosa Neck: supple, palpable 2 cm right sided thyroid nodule Cardiac: normal heart sounds Pulm: normal breath sounds B/L, no added breath sounds Abd: not distended, no tenderness Extremities: no edema, no signs of myxedema Neuro: AAO x3, Speech: normal, no facial droop, moving all 4 extremities Laboratory Tests 09/27/23 07:24 TSH 1.23 Free T4 1.14 Imaging US THYROID 07/2023 CLINICAL INFORMATION: Nontoxic multinodular goiter. Left thyroidectomy in 1999. Biopsy right lower pole thyroid nodule in July 2021 per history provided. COMPARISON: Thyroid ultrasound 07/23/2022 and 10/31/2020. Ultrasound-guided thyroid biopsy 08/01/2021. TECHNIQUE: Linear transducer grayscale and color Doppler examination with attention to the region of the thyroid. FINDINGS: SIZE: Measurements of the solitary right lobe and nodules are given in sagittal, anteroposterior and transverse dimensions respectively. Right Thyroid Lobe: 6.4 x 2.5 x 2.4 cm, volume 19.8 mL. Previously 5.9 x 2.3 x 2.3 cm, volume 16.3 mL. Parenchyma: The gland echotexture is heterogeneous. Thyroid vascularity is increased. Left Thyroid Lobe: Surgically absent. Isthmus: 0.7 cm in maximum AP dimension. Previously 0.8 cm. Estimated total number of nodules greater than or equal to 1 cm: 1. Electromechanical Assembler nodules are described as follows: 1. Location: Right upper pole. Size: 0.6 x 0.3 x 0.5 cm, volume 0.05 mL. Previously: 0.6 x 0.3 x 0.6 cm, volume 0.06 mL. Nodule characteristics: Composition: Spongiform (0). ACR TI-RADS total points: 0. Previous: 0. ACR TI-RADS category: 1. Previous: 1. Significant change in size (>/= 20% in 2 dimensions and minimal increase of 2 mm or 50% or greater increase in volume): No Change in features: No Change in ACR TI-RADS risk category: No 2. Location: Right upper pole. Size: 0.6 x 0.3 x 0.5 cm, volume 0.05 mL. Previously: 0.6 x 0.3 x 0.5 cm, volume 0.05 mL. Nodule characteristics: Composition: Spongiform (0). ACR TI-RADS total points: 0. Previous: 2. ACR TI-RADS category: 1. Previous: 2. Significant change in size (>/= 20% in 2 dimensions and minimal increase of 2 mm or 50% or greater increase in volume): No Change in features: Yes Change in ACR TI-RADS risk category: Yes 3. Location: Right lower pole. Size: 2.3 x 1.4 x 1.8 cm, volume 2.9 mL. Previously: 1.9 x 1.3 x 1.8 cm, volume 2.3 mL on 07/23/2022 and 1.6 x 1.1 x 1.6 cm, volume 1.5 mL on 10/31/2020. Nodule characteristics: Composition: Solid (2). Echogenicity: Hypoechoic (2). Shape: Not taller than wide (0). Margins: Smooth (0). Echogenic Foci: Punctate echogenic foci (3). ACR TI-RADS total points: 7. Previous: 6. ACR TI-RADS category: 5. Previous: 4. Significant change in size (>/= 20% in 2 dimensions and minimal increase of 2 mm or 50% or greater increase in volume): Yes Change in features: Yes Change in ACR TI-RADS risk category: Yes LEFT THYROIDECTOMY BED: No focal mass appreciated in the left thyroid bed. Left thyroid lobe is surgically absent. NODES: No lymphadenopathy is seen in the tissue surrounding the thyroid gland. US/US thyroid IMPRESSION: Right lower pole TR5 thyroid nodule measures 2.3 x 1.4 x 1.8 cm, volume 2.9 mL. This previously measured 1.9 x 1.3 x 1.8 cm, volume 2.3 mL on 07/23/2022 and 1.6 x 1.1 x 1.6 cm, volume 1.5 mL on 10/31/2020. Correlation with prior biopsy results and clinical exam recommended to determine further management including possible biopsy. . Thyroid US: 5/30/23 Right Thyroid Lobe: 5.9 x 2.3 x 2.3 cm, volume 16.3 mL. Previously 6.5 x 2.3 x 2.0 cm, volume 15.6 mL. Parenchyma: The gland echotexture is heterogeneous. Thyroid vascularity is increased. Left Thyroid Lobe: Surgically absent. Isthmus: 0.8 cm in maximum AP dimension. Previously 0.9 cm. Estimated total number of nodules greater than or equal to 1 cm: 1. Electromechanical Assembler nodules are described as follows: 1.? Location: Right superior. ?? ? Size: 0.6 x 0.3 x 0.5 cm, volume 0.05 mL. ?? ? Previously: New since the previous study. ?? ? Nodule characteristics: ?? ? Composition: Mixed cystic and solid (1). ?? ? Echogenicity: Isoechoic (1). ?? ? Shape: Not taller than wide (0). ?? ? Margins: Smooth (0). ?? ? Echogenic Foci: None (0).? ACR TI-RADS total points: 2 ?? ? ACR TI-RADS category: 2 2.? Location: Right superior. ?? ? Size: 0.6 x 0.3 x 0.6 cm, volume 0.06 mL. ?? ? Previously: 0.6 x 0.3 x 0.6 cm, volume 0.06 mL. ?? ? Nodule characteristics: ?? ? Composition: Spongiform (0). ?? ? Echogenicity: Anechoic (0). ?? ? Shape: Not taller than wide (0). ?? ? Margins: Smooth (0). ?? ? Echogenic Foci: None (0).? ACR TI-RADS total points: 0 Previous: 0 ?? ? ACR TI-RADS category: 1 Previous: 1 ? Significant change in size (>/= 20% in 2 dimensions and minimal increase of 2 mm or 50% or greater increase in volume): No ?? ? Change in features: No ?? ? Change in ACR TI-RADS risk category: No 3.? Location: Right superior. ?? ? Size: 0.6 x 0.3 x 0.5 cm, volume 0.05 mL. ?? ? Previously: 0.3 x 0.2 x 0.4 cm, volume 0.02 mL. ?? ? Nodule characteristics: ?? ? Composition: Solid (2). ?? ? Echogenicity: Isoechoic (1). ?? ? Shape: Not taller than wide (0). ?? ? Margins: Smooth (0). ?? ? Echogenic Foci: None (0).? ACR TI-RADS total points: 3 Previous: 3 ?? ? ACR TI-RADS category: 3 Previous: 3 ? Significant change in size (>/= 20% in 2 dimensions and minimal increase of 2 mm or 50% or greater increase in volume): No ?? ? Change in features: No ?? ? Change in ACR TI-RADS risk category: No 4.? Location: Right inferior. ?? ? Size: 1.9 x 1.3 x 1.8 cm, volume 2.27 mL. ?? ? Previously: 1.6 x 1.1 x 1.6 cm, volume 1.50 mL. ?? ? Nodule characteristics: ?? ? Composition: Solid (2). ?? ? Echogenicity: Hypoechoic (2). ?? ? Shape: Not taller than wide (0). ?? ? Margins: Irregular (2). ?? ? Echogenic Foci: None (0).? ACR TI-RADS total points: 6 Previous: 5 ?? ? ACR TI-RADS category: 4 Previous: 4 ? Significant change in size (>/= 20% in 2 dimensions and minimal increase of 2 mm or 50% or greater increase in volume): Yes ?? ? Change in features: No ?? ? Change in ACR TI-RADS risk category: No NODES: No lymphadenopathy is seen in the tissue surrounding the thyroid gland. Labs: Laboratory Tests 08/28/21 13:12 TSH 1.08 Free T4 1.14 [facility] Medical History Right thyroid nodule Osteopenia of multiple sites Postmenopause Bharath's thyroiditis Nontoxic multinodular goiter PMR (polymyalgia rheumatica) Essential hypertension Dyslipidemia Surgical History Hx of colonoscopy History of thyroidectomy History of tonsillectomy Family History Father Alzheimer's disease Mother HTN (hypertension) CAD (coronary artery disease) Brother CAD (coronary artery disease) Sister No problems noted. Son No problems noted. Son No problems noted. [facility] Alcohol intake: current Patient Tobacco Use Status: Never used Tobacco e-Cigarette/Vaping Use: Never Used Second Hand Smoke Exposure: No Current occupational status: retired Cognitive needs: No Hearing needs: No Vision needs: Yes Physical Exam Vital Signs: Last Vital Signs Pulse 58 01/26/24 09:48 BP 126/82 01/26/24 09:48 BMI result Body Mass Index 21.2 Assessment & Plan Assessment & Plan (1) Right thyroid nodule: Code(s): E04.1 - Nontoxic single thyroid nodule Category: Medical Plan: 73-year-old female coming in today for follow up of multinodular goiter. She had a prior L hemithyroidectomy for unknown reasons in 1999. She reports that the surgical pathology was benign. She has been followed yearly for multiple nodules within her R lobe. 08/01/2021 she underwent an IR guided FNA biopsy of her RLP 1.8 cm thyroid nodule with benign cytology. June 2022, ultrasound showed stable size of the right superior subcentimeter nodules. The dominant right inferior nodule showed increase in size from 1.6 cm in the largest dimension to 1.8 cm. Volume also went up from 1.5 mL to 2.2 mL. Decision was made to repeat ultrasound in 1 year, she had a repeat ultrasound in July 2023 which showed stable size of the right lower pole dominant nodule over the past year.Size: 2.3 x 1.4 x 1.8 cm, volume 2.9 mL. Previously: 1.9 x 1.3 x 1.8 cm, volume 2.3 mL on 07/23/2022 and 1.6 x 1.1 x 1.6 cm, volume 1.5 mL on 10/31/2020. Given stable size of the nodule over this past year, I reviewed the images myself, in the nodule as regular, circular, well some circumscribed, solid, hypoechoic. It does have some echogenic foci in it, however this nodule has been biopsied before in 2021 and was benign. While it has increased in size over the last 2 years, it has remained stable over this past year. I had a discussion with the patient regarding risk of possibly having cancer in this nodule but low likelihood given stable size over this past year, plus overall features of the nodule plus previous biopsy that was benign. We decided to watch this nodule for another year with repeat ultrasound in July 2024. Plan: -repeat ultrasound ordered for July 2024 -ordered TSH, free T4 to be done prior to follow up in August 2024 Plan I spent 30 minutes in reviewing the record, seeing the patient and documenting in the medical record. Orders: Orders Thyroid Stimulating Hormone 07/26/24 E04.1 - Nontoxic single thyroid nodule US thyroid 07/26/24 E04.1 - Nontoxic single thyroid nodule Free T4 (Free Thyroxine) 07/26/24 E04.1 - Nontoxic single thyroid nodule Patient Instructions: Do blood work 3-4 days prior to your next follow up Do thyroid US in July 2024, and follow up with me in August 2024 Coding Level of Care Code Est Pt Level 4 (09243) Diagnoses Right thyroid nodule E04.1 Time Spent (min) 30
== END 2024-01-26 10:32 | disposition home or self-care (01) ==
PROVIDERS: PCP Internal Medicine; Visit Provider Student in an Organized Health Care Education/Training Program
DX: E04.1 Nontoxic single thyroid nodule (principal)
CPT/HCPCS: 99214

== ENCOUNTER → 2024-01-26 09:46 | Outpatient (BNVA) | payer MEDICARE, SELFPAY | PROVIDERS: PCP Internal Medicine; Visit Provider Student in an Organized Health Care Education/Training Program | DX: E04.1 Nontoxic single thyroid nodule (principal) | CPT/HCPCS: 99212 ==

== ENCOUNTER 2024-04-23 08:14 | Outpatient (REF) | payer MEDICARE, SELFPAY | END 2024-04-23 08:15 | disposition home or self-care (01) | LOC: HO.LAB 08:14 | PROVIDERS: PCP Internal Medicine | DX: Z13.89 Encounter for screening for other disorder (principal) | CPT/HCPCS: 99212 ==

== ENCOUNTER 2024-04-23 08:14 | Outpatient (AMB) | payer MEDICARE, SELFPAY ==
--- NOTE | 2024-04-23 08:32 | AM.OFFWIN_ITS ---
Intake Vital Signs 04/23/24 08:33 Weight 124 lb BP 110/78 Blood Pressure Location Lt brachial Position Sitting Pulse 81 Pulse Source Pulse Oximeter Temp 98.2 F Temp Source Oral Pulse Oximetry (%) 97 Oxygen Delivery Method Room Air Intake Visit Reasons: EP diarrhea 1 month Intake Note: Patient here for chronic diarrhea that has been present for about 1 month. Patient Tobacco Use Status: Never used Tobacco Allergies shellfish derived [SHELLFISH DERIVED] Allergy (Severe, Verified 04/23/24 08:33) Nausea, vomiting, Sever GI upset Sulfa (Sulfonamide Antibiotics) [SULFA (SULFONAMIDE ANTIBIOTICS)] Allergy (Intermediate, Verified 04/23/24 08:33) RASH, hives/rash TB test Allergy (Unknown, Uncoded 04/23/24 08:33) localized swelling, throat swelling Do you need a note to return to daycare/school/sports/work: No HPI HPI Comments History of Present Illness Details History of Present Illness - The patient is a 73-year-old female pr esenting with one month of diarrhea. - She has been experiencing episodes of diarrhea for the past month, occurring about an hour after meals, with some associated mucus in the stool but no blood, nothing black and no fever. - The patient has eliminated lactose and caffeine from her diet a year ago. - She has observed significant changes i n stool consistency and odor, she states it is quite malodorous, and she has lost weight. - Dietary management and Immodium have b een attempted without sustained relief. - Current history includes prior colonos copy screenings with no history of diverticulosis, with last Cologuard testing incomplete due to the loose stool consistency. Physical Exam General: Cooperative, healthy appearing, comfortable, no acute distress and well developed Orientation: Patient oriented x3 Limitations: No limitations Head: Normal to inspection Ears: Hearing grossly normal bilaterally Nose: Normal external nose present Face and sinus: Normal facial exam Eyes: Appearance normal, both eyes and all related structures Neck: Normal visual inspection and Yes full ROM Respiratory: Normal respiratory effort and able to speak in complete sentences Skin: No rashes or lesions noted Neuro: Patient oriented x3 Extremities: Normal to inspection [facility] Medical History Right thyroid nodule Osteopenia of multiple sites Postmenopause Bharath's thyroiditis Nontoxic multinodular goiter PMR (polymyalgia rheumatica) Essential hypertension Dyslipidemia Surgical History Hx of colonoscopy History of thyroidectomy History of tonsillectomy Family History Father Alzheimer's disease Mother HTN (hypertension) CAD (coronary artery disease) Brother CAD (coronary artery disease) Sister No problems noted. Son No problems noted. Son No problems noted. Social History [facility] Alcohol intake: current Patient Tobacco Use Status: Never used Tobacco e-Cigarette/Vaping Use: Never Used Second Hand Smoke Exposure: No Current occupational status: retired Cognitive needs: No Hearing needs: No Vision needs: Yes Review of Systems Const All systems reviewed & are unremarkable except as noted in HPI and below Physical Exam Vital Signs: Last Vital Signs Temp 98.2 F 04/23/24 08:33 Pulse 81 04/23/24 08:33 BP 110/78 04/23/24 08:33 Pulse Ox 97 04/23/24 08:33 Oxygen Delivery Method Room Air 04/23/24 08:33 Assessment & Plan Assessment & Plan (1) Diarrhea: Code(s): R19.7 - Diarrhea, unspecified Qualifiers: Diarrhea type: unspecified type Qualified Code(s): R19.7 - Diarrhea, unspecified Plan: The plan includes performing a gastrointestinal PCR panel and testing for Clostridium difficile infection due to the symptom presentation and odor. If these tests are negative, a gluten-free diet trial will be considered as a part of dietary adjustments. Arrangements will be made to expedite the upcoming appointment with her PCP, Dr. Dozier, if the stool testing is all negative. Follow-up communication will include test results and possible dietary management strategies depending on outcomes. Patient was informed and verbally consented to the use of an ambient scribe for clinic note documentation during this visit. Orders: Orders CDiff Gene PCR Today R19.7 - Diarrhea, unspecified GI Panel Today R19.7 - Diarrhea, unspecified Coding Level of Care Code Est Pt Level 4 (40551) Diagnoses Diarrhea, unspecified type R19.7 Diarrhea type: unspecified type
[2024-04-23 08:33] VITALS: BP 110/78; PULSE 81; TEMP 36.8; O2SAT 97
== END 2024-04-23 09:01 | disposition home or self-care (01) ==
PROVIDERS: PCP Internal Medicine; Visit Provider Physician Assistant
DX: R19.7 Diarrhea, unspecified (principal)

== ENCOUNTER 2024-04-23 13:10 | Outpatient (REF) | payer MEDICARE, SELFPAY ==
[2024-04-23 18:09] LABS: CDiff Gene PCR NEGATIVE (Negative)
[2024-04-24 14:29] LABS: Adenovirus F 40/41 Not Detected (Not Detect.); Astrovirus Not Detected (Not Detect.); Campylobacter Not Detected (Not Detect.); Cryptosporidium Not Detected (Not Detect.); Cyclospora cayetanensis Not Detected (Not Detect.); E. coli EAEC Not Detected (Not Detect.); E. coli EPEC Not Detected (Not Detect.); E. coli ETEC Not Detected (Not Detect.); E. coli STEC Not Detected (Not Detect.); Entamoeba histolytica Not Detected (Not Detect.); Giardia lamblia Not Detected (Not Detect.); Norovirus GI/GII Not Detected (Not Detect.); Plesiomonas shigelloides Not Detected (Not Detect.); Rotavirus A Not Detected (Not Detect.); Salmonella Not Detected (Not Detect.); Sapovirus Not Detected (Not Detect.); Shigella sp./EIEC Not Detected (Not Detect.); Vibrio Not Detected (Not Detect.); Vibrio Cholerae Not Detected (Not Detect.); Yersinia enterocolitica Not Detected (Not Detect.)
== END 2024-04-23 13:11 | disposition home or self-care (01) ==
LOC: HO.HMGCLNP 13:10
PROVIDERS: PCP Internal Medicine; Visit Provider Physician Assistant
DX: R19.7 Diarrhea, unspecified (principal)
CPT/HCPCS: 87493; 87507; 99212

== ENCOUNTER 2024-04-30 08:41 | Outpatient (REF) | payer MEDICARE, SELFPAY ==
[2024-04-30 10:05] LABS: Appearance Urine Clear; Color Urine Yellow; Glucose Urine UA Negative (Negative); Leukocyte Esterase Urine Negative (Negative); Nitrite Urine Negative (Negative); Urine Blood Negative (Negative); Urine Ketones Trace mg/dL (Negative); Urine Protein Negative (Neg-Trace)
== END 2024-04-30 08:42 | disposition home or self-care (01) ==
LOC: HO.HMGCLDS 08:41
PROVIDERS: PCP Internal Medicine; Visit Provider Internal Medicine
DX: R33.9 Retention of urine, unspecified (principal)
CPT/HCPCS: 81003

== ENCOUNTER 2024-05-05 14:15 | Outpatient (REF) | payer MEDICARE, SELFPAY ==
[2024-05-09 17:20] LABS: Fecal Fat Qualitative Normal (Normal)
[2024-05-13 19:08] LABS: Pancreatic Elastase-1 304 mcg/g (>200)
== END 2024-05-05 14:16 | disposition home or self-care (01) ==
LOC: HO.HMGCLNP 14:15
PROVIDERS: PCP Internal Medicine; Visit Provider Internal Medicine
DX: R19.7 Diarrhea, unspecified (principal)
CPT/HCPCS: 82656; 82705

== ENCOUNTER 2024-05-07 06:02 | Emergency (ER) | payer MEDICARE, SELFPAY ==
[2024-05-07 06:02] VITALS: BP 110/56; PULSE 88; RESP 16; TEMP 36.5; O2SAT 97; BMI 21.1
--- NOTE | 2024-05-07 06:24 | ED.NAVMDI ---
HPI - Nausea/Vomiting/Diarrhea General Chief complaint: Nausea/Vomiting/Diarrhea Stated complaint: Diarrhea Time Seen by Provider: 05/07/24 06:22 Source: patient, RN notes reviewed and old records reviewed Mode of arrival: ambulatory Limitations: no limitations History of Present Illness ED Provider: Familia Richardson PA-C HPI Narrative: 73 yo female with history of HTN, HLD, sarah's thyroiditis presents to the ER for evaluation of watery, non-bloody diarrhea for the last 3-4 weeks. [facility] and had negative Cdiff and GI panel. She also sent in additional stool for testing this week and results are pending. She is supposed to be seeing Dr. Montejo in the office once the results return. She reports for almost 1 month she has had watery stool every time after she eats. No melena, blood, mucus. No N/V or abdominal pain. She occasionally gets cramping in the abdomen before she had the diarrhea. She reports the episodes are only once after she eats but last night the volume was more than usual, prompting evaluation today. She has tried occasional doses of Imodium with little relief. She reports drinking plenty of water and staying hydrated but she is starting to feel weak. No muscle cramping, focal weakness, chest pain, SOB, fever or chills. Last colonoscopy was about 10 years ago. MD elicited complaint: diarrhea Onset (ago): week(s) Description of vomiting: watery Associated nausea: No Associated abdominal pain: No Location of pain: none Quality: cramping Exacerbating factors: eating Relieving factors: none Associated symptoms: weakness Related Data Home Medications ?Medication ?Instructions ?Recorded ?Confirmed cholecalciferol (vitamin D3) 50 50 mcg PO DAILY 02/14/20 01/26/24 mcg (2,000 unit) capsule latanoprost 0.005 % eye drops 1 drp ophthalmic (eye) BEDTIME 02/14/20 01/26/24 hydroxychloroquine 200 mg tablet 100 mg PO BID 08/15/22 01/26/24 denosumab 60 mg/mL subcutaneous 60 mg subcut [id number] 04/03/23 01/26/24 syringe (Prolia) Previous Rx's ?Medication ?Instructions ?Recorded amlodipine 5 mg tablet 5 mg PO DAILY #90 tabs 04/03/23 atorvastatin 20 mg tablet 20 mg PO Q2D 90 days #45 tabs 03/23/24 dicyclomine 10 mg capsule 10 mg PO QID PRN abdominal pain 05/07/24 #20 caps loperamide 2 mg capsule 2 mg PO Q6H PRN loose stool #30 05/07/24 caps Allergies Allergy/AdvReac Type Severity Reaction Status Date / Time shellfish derived Allergy Severe Nausea, Verified 05/07/24 06:04 [SHELLFISH DERIVED] vomiting, Sever GI upset Sulfa (Sulfonamide Allergy Intermediate RASH, Verified 05/07/24 06:04 Antibiotics) hives/rash [SULFA (SULFONAMIDE ANTIBIOTICS)] TB test Allergy Unknown localized Uncoded 04/23/24 08:33 swelling, throat swelling Review of Systems Review of Systems: Yes all other systems are reviewed and are negative Gastrointestinal: Gastrointestinal: Denies nausea PMFSH Past Medical History Medical History (Updated 05/07/24 @ 07:46 by SAMMI Fishman) Chronic diarrhea Right thyroid nodule Osteopenia of multiple sites Postmenopause Sarah's thyroiditis Nontoxic multinodular goiter PMR (polymyalgia rheumatica) Essential hypertension Dyslipidemia Surgical History Hx of colonoscopy History of thyroidectomy History of tonsillectomy Family History Family History Father Alzheimer's disease Mother HTN (hypertension) CAD (coronary artery disease) Brother CAD (coronary artery disease) Sister No problems noted. Son No problems noted. Son No problems noted. Social History Social History Housing: Condominium Alcohol intake: current Patient Tobacco Use Status: Never used Tobacco Smoked in Last 30 Days: No e-Cigarette/Vaping Use: Never Used Second Hand Smoke Exposure: No Use of substances other than those prescribed or required for medical reasons: No Advance Directives: No Advance Directives Information Provided: Yes Do you have a plan to hurt others: No Plan Current occupational status: retired Cognitive needs: No Hearing needs: No Vision needs: Yes Physical Exam Vital Signs: Vital Signs: Last Vital Signs Temp 97.7 F 05/07/24 06:39 Pulse 69 05/07/24 06:39 Resp 16 05/07/24 06:39 BP 118/93 H 05/07/24 06:39 Pulse Ox 97 05/07/24 06:39 O2 Del Method Room Air 05/07/24 06:39 BMI result Body Mass Index 21.1 Appearance: Alert. Oriented X3. No acute distress. Head: normocephalic, atraumatic. Eyes: Pupils equal, round and reactive to light. ENT: Pharynx normal. Moist mucus membranes Neck: Normal inspection. Neck supple. CVS: Normal heart rate and rhythm. Pulses normal. Respiratory: No respiratory distress. Breath sounds normal. Abdomen: Soft and nontender. +BS x4 Skin: Skin warm and dry. Normal skin color. Normal skin turgor. No rashes. Extremities: No lower extremity edema. No joint swelling. Neuro/psych: Oriented X 3. No motor deficit. No sensory deficit. CN II-XII intact. Normal speech and cognition. Medications Administered Generic Name Dose Route Start Last Admin Trade Name Freq PRN Reason Stop Dose Admin Lactated Ringer's 1,000 mls @ 999 mls/hr 05/07/24 06:45 05/07/24 06:51 Lr IV 05/07/24 07:45 999 mls/hr .Q1H1M AMISH Administration Medical Decision Making Medical Decision Making [facility] Narrative: 73 yo female presenting with watery, non-bloody diarrhea for the last few weeks, occurring after she eats. no abdominal pain. exam is reassuring with no tenderness, normal bowel sounds. lab workup today is largely unremarkable. lipase is low. question of pancreatic insufficiency. will need further evaluation and testing with GI. stool fat and pancreatic elastase are pending no stool while in the ER to resend bacterial tests. at this time patient is stable for d/c home with plan to follow up with GI in the office. recommend loperamide before meals and bentyl for cramping. no emergent need for imaging today given normal exam. stable for d/c home. Differential Diagnosis Differential Diagnoses: The differential diagnosis associated with the presentation includes dehydration, malabsoption, gluten intolerance, IBS-D, Cdiff or infectious diarrhea less likely Admission/Observation Consideration of admission/observation: Escalation of care including admission/observation considered Lab Data [facility] Lab Attestation statement: I reviewed the patient's lab results. albumin slightly low, lipase low 05/07/24 06:45 05/07/24 06:45 Labs: Lab Results 05/07/24 Range/Units 06:45 WBC 6.9 (4.8-10.8) X10*3/uL RBC 4.51 (4.20-5.50) X10*6/uL Hgb 13.2 (12.0-16.0) g/dl Hct 39.7 (37.0-47.0) % MCV 88.0 (80.0-98.0) fL MCH 29.3 (27.0-33.0) pg MCHC 33.2 (31.0-35.0) g/dl RDW 12.1 (11.0-16.0) % Plt Count 283 D (160-400) X10*3/uL MPV 10.1 (9.4-12.3) fL Immature Gran % (Auto) 0.6 H (0.0-0.4) % Neut % (Auto) 56.9 (45-73) % Lymph % (Auto) 19.5 L (20-40) % [place] % (Auto) 17.4 H (2-11) % Eos % (Auto) 4.3 H (0-4) % Baso % (Auto) 1.3 (0-2) % Lymph # (Auto) 1.4 (1.2-4.9) X10*3/uL [place] # (Auto) 1.2 (0.1-1.2) X10*3/uL Eos # (Auto) 0.3 (0.0-0.4) X10*3/uL Baso # (Auto) 0.1 (0.0-0.2) X10*3/uL Abs Immat Gran (auto) 0.04 H (0.00-0.03) X10*3/uL Absolute Neuts (auto) 3.9 (2.0-8.3) x10*3/uL Absolute Nucleated RBC 0.000 (0.0-0.012) X10*3/uL Nucleated RBC % (auto) 0.0 (0.0-0.2) /100WBC Sodium 139 (135-145) mmol/L Potassium 4.0 (3.3-5.1) mmol/L Chloride 108 (96-108) mmol/L Carbon Dioxide 21 L (22-29) mmol/L Anion Gap 14 (12-20) BUN 7 L (9-16) mg/dL Creatinine 0.74 (0.5-1.4) mg/dL Estim Creat Clear Calc 62.7 Estimated GFR > 60 Random Glucose 106 (60-115) mg/dL Calcium 8.3 L D (8.4-10.2) mg/dL Total Bilirubin 0.4 (0.0-1.0) mg/dL AST 20 (5-31) U/L ALT 10 (0-31) U/L Alkaline Phosphatase 55 (39-117) U/L Total Protein 6.4 L (6.5-8.0) g/dL Albumin 3.3 L (3.5-5.0) g/dL Lipase 7 L (8-78) U/L Independent Historian Clinical information obtained from an independent historian. History obtained from or confirmed by: Spouse External Record Review External record reviewed: Outpatient record and Prior outpatient labs Tests considered The following testing was considered but not selected: CT scan abd/pelvis considered, low suspicion for colitis or acute abdominal process Prescription Management I considered prescription management with: Antibiotic and Other (antidiarrheal ) Critical Care Time Critical Care Time Critical Care Time: No Discharge Plan Discharge Clinical Impression: Diarrhea Qualifiers: Diarrhea type: unspecified type Qualified Code(s): R19.7 - Diarrhea, unspecified Patient Disposition: Home, Self-Care Instructions: Acute Diarrhea (ED) Additional Instructions: your lab workup today was unremarkable recommend trial of taking loperamide 2mg about 30-60 minutes before meals take the prescribed bentyl as needed for abdominal cramping follow up with Dr. Montejo in the GI office for further evaluation and treatment stick to a bland diet. keep a food diary so you can bring it to the office for Dr. Montejo If you develop new or worsening symptoms call 911 or come back to the ER for further evaluation. Prescriptions: New loperamide 2 mg capsule 2 mg PO Q6H PRN (Reason: loose stool) Qty: 30 0RF dicyclomine 10 mg capsule 10 mg PO QID PRN (Reason: abdominal pain) Qty: 20 0RF No Action atorvastatin 20 mg tablet 20 mg PO Q2D 90 Days Qty: 45 1RF latanoprost 0.005 % drops 1 drp ophthalmic (eye) BEDTIME cholecalciferol (vitamin D3) 50 mcg (2,000 unit) capsule 50 mcg PO DAILY hydroxychloroquine 200 mg tablet 100 mg PO BID Rx Instructions: 1/2 tablet in the am and 1/2 tablet at night Prolia 60 mg/mL syringe 60 mg subcut [id number] amlodipine 5 mg tablet 5 mg PO DAILY Qty: 90 3RF Rx Instructions: schedule next PCP appt Referrals: [facility] [Provider Group] Zari Dozier MD [Primary Care Provider] - Print Language: Thai
[2024-05-07 06:39] VITALS: BP 118/93; PULSE 69; RESP 16; TEMP 36.5; O2SAT 97
[2024-05-07 06:51] LABS: Basophils Absolute Auto 0.1 X10*3/uL (0.0-0.2); Basophils Percent Auto 1.3 % (0-2); Eosinophils Absolute Auto 0.3 X10*3/uL (0.0-0.4); Eosinophils Percent Auto 4.3 % (0-4); Hematocrit 39.7 % (37.0-47.0); Hemoglobin 13.2 g/dl (12.0-16.0); Imm Gran Abs Auto 0.04 X10*3/uL (0.00-0.03); Imm Gran Pct Auto 0.6 % (0.0-0.4); Lymphocytes Absolute Auto 1.4 X10*3/uL (1.2-4.9); Lymphocytes Percent Auto 19.5 % (20-40); Mean Corpuscular HGB Conc 33.2 g/dl (31.0-35.0); Mean Corpuscular Hemoglobin 29.3 pg (27.0-33.0); Mean Platelet Volume 10.1 fL (9.4-12.3); Monocytes Absolute Auto 1.2 X10*3/uL (0.1-1.2); Monocytes Percent Auto 17.4 % (2-11); Neutrophils Absolute Auto 3.9 x10*3/uL (2.0-8.3); Neutrophils Percent Auto 56.9 % (45-73); Platelet Count 283 X10*3/uL (160-400); Red Blood Count 4.51 X10*6/uL (4.20-5.50); Red Cell Distribution Width 12.1 % (11.0-16.0); White Blood Count 6.9 X10*3/uL (4.8-10.8)
[2024-05-07] MEDS: Lactated Ringers 1,000 ML 999 ML IV (06:51)
[2024-05-07 06:52] LABS: MANUAL DIFF FLAG NO
--- NOTE | 2024-05-07 07:00 | PC.NURSE ---
Report taken from Cara Ivan RN
[2024-05-07 07:07] LABS: Alanine Aminotransferase 10 U/L (0-31); Albumin Level 3.3 g/dL (3.5-5.0); Alkaline Phosphatase 55 U/L (39-117); Anion Gap 14 (12-20); Aspartate Amino Transferase 20 U/L (5-31); Bilirubin Total 0.4 mg/dL (0.0-1.0); Blood Urea Nitrogen 7 mg/dL (9-16); Calcium 8.3 mg/dL (8.4-10.2); Carbon Dioxide 21 mmol/L (22-29); Chloride 108 mmol/L (96-108); Creatinine Clr Calc Pharmacy 62.7; Estimated Glomerular Filt Rate > 60; Glucose Random 106 mg/dL (60-115); Lipase 7 U/L (8-78); Sodium 139 mmol/L (135-145); Total Protein 6.4 g/dL (6.5-8.0)
[2024-05-07 08:15] VITALS: BP 118/93; PULSE 69; RESP 16; TEMP 36.5; O2SAT 97
== END 2024-05-07 08:16 | disposition home or self-care (01) ==
PROVIDERS: Emergency Provider Emergency Medicine; PCP Internal Medicine
DX: R11.2 Nausea with vomiting, unspecified (principal); R25.2 Cramp and spasm; R19.7 Diarrhea, unspecified; Z79.899 Other long term (current) drug therapy
CPT/HCPCS: 36415; 80053; 83690; 85025; 96360; 99284; J7120

== ENCOUNTER 2024-05-20 08:12 | Outpatient (AMB) | payer MEDICARE, SELFPAY ==
--- NOTE | 2024-05-20 08:16 | AM.OFFWIN_ITS ---
Intake Vital Signs 05/20/24 08:52 Weight 128 lb BP 116/70 Blood Pressure Location Lt brachial Position Sitting Pulse 69 Pulse Source Pulse Oximeter Temp 97.9 F Temp Source Oral Pulse Oximetry (%) 98 Oxygen Delivery Method Room Air Intake Visit Reasons: ? UTI Intake Note: Patient here for full bladder and having issues urinating, burning on urination that has been present for a couple of days now. Patient Tobacco Use Status: Never used Tobacco Allergies shellfish derived [SHELLFISH DERIVED] Allergy (Severe, Verified 05/20/24 08:52) Nausea, vomiting, Sever GI upset Sulfa (Sulfonamide Antibiotics) [SULFA (SULFONAMIDE ANTIBIOTICS)] Allergy (Intermediate, Verified 05/20/24 08:52) RASH, hives/rash TB test Allergy (Unknown, Uncoded 05/20/24 08:52) localized swelling, throat swelling Do you need a note to return to daycare/school/sports/work: No HPI HPI Comments History of Present Illness Details 73 y/o female patient who presents to [facility] walk in clinic with c/o Urinary tract symptoms for couple days. Reports inability to urinate and feeling full Bladder. Reports burning with urination and increased Urgency. She had urine tested 04/30 which was negative. Unfortunately today she unable to provide Urine Sample during the visit. Denies Vaginal symptoms. She recently had Diarrhea, which is under control now, managed by Medications. She will be seeing Dr. Montejo 05/27. [facility] Medical History (Updated 05/20/24 @ 08:59 by Biat Lopes NP) Urinary tract infection symptoms Chronic diarrhea Right thyroid nodule Osteopenia of multiple sites Postmenopause Bharath's thyroiditis Nontoxic multinodular goiter PMR (polymyalgia rheumatica) Essential hypertension Dyslipidemia Surgical History Hx of colonoscopy History of thyroidectomy History of tonsillectomy Family History Father Alzheimer's disease Mother HTN (hypertension) CAD (coronary artery disease) Brother CAD (coronary artery disease) Sister No problems noted. Son No problems noted. Son No problems noted. Social History Housing: Condominium Alcohol intake: current Patient Tobacco Use Status: Never used Tobacco e-Cigarette/Vaping Use: Never Used Second Hand Smoke Exposure: No Current occupational status: retired Cognitive needs: No Hearing needs: No Vision needs: Yes Review of Systems Const All systems reviewed & are unremarkable except as noted in HPI and below Physical Exam Vital Signs: Last Vital Signs Temp 97.9 F 05/20/24 08:52 Pulse 69 05/20/24 08:52 BP 116/70 05/20/24 08:52 Pulse Ox 98 05/20/24 08:52 Oxygen Delivery Method Room Air 05/20/24 08:52 Const General: no acute distress Nutritional Appearance: well nourished Orientation/consciousness: patient oriented x3 GI Other: Pelvic Exam deferred. Rectal Exam - Female: deferred General: Yes no CVA tenderness Back/Spine/Pelvis Back: no CVA tenderness Neuro General: patient oriented x3, gait normal and moves all extremities Psych Speech and movement: Normal speech and movement present Assessment & Plan Assessment & Plan (1) Urinary tract infection symptoms: Code(s): R39.9 - Unspecified symptoms and signs involving the genitourinary system Plan: Unable to provide urine sample during the visit today. Ordered Urinalysis and C&S Patient to bring in Urine sample for testing. Advised if unable to Urinate in the next 12 hours to go to the ED. Orders: Orders UA CC w/rflx Micro + Cult Today R39.9 - Unspecified symptoms and signs involving the genitourinary system Coding Level of Care Code Est Pt Level 4 (57074) Diagnoses Urinary tract infection symptoms R39.9 Time Spent (min) 20
--- OUTSIDE RECORDS SUMMARY | 2024-05-20 08:29 | XMS_ITS ---
Author Organization [facility] Address [address] [place] [address] Care Team Providers Care Warehouse Distribution Associate Name Role Phone Tasia LEWIS, Zari Primary Care Provider Andrea Nieto [phone] REASON FOR VISIT 05/27 11:20 appt Encounters Encounter Location Date Provider Diagnosis [facility] [address] [place] [address] 05/06/2024 Andrea Montejo Plan Of Treatment Next Appt Details Provider Name:Andrea Montejo , 05/27/2024 11:20:00 AM, [address], [address], [place], [address], Progress Notes * AZUL FITZPATRICKDOB:1950 (73 yo F)Acc No.[id number]:05/06/2024 Patient:?AZUL FITZPATRICK :1950???Age:73 Y???Sex:Female Address: [place], [address] * true * Date:? Generated for Allison maguire/Cheryl/eTransmitting on:?05/20/2024 08:29 AM EDT
--- OUTSIDE RECORDS SUMMARY | 2024-05-20 08:30 | XMS_ITS | Patient Health Record ---
Author Organization [facility] Address [address] [place] [address] Care Team Providers Care Paint Supervisor Name Role Phone Tasia LEWIS, Zari Primary Care Provider Andrea Nieto [facility] [phone] Reason For Referral No Information Encounters Encounter Location Date Provider Diagnosis [facility] [address] [place] [address] 05/06/2024 Andrea Montejo Plan Of Treatment Next Appt Details Provider Name:Andrea Montejo , 05/27/2024 11:20:00 AM, [address], [address], [place], [address], Insurance Providers Payer Name Payer Address Payer Phone Subscriber Number Group Number Insured Name Patient Relationship to Insured Coverage Start Date Coverage End Date [facility] [address] [place] [address] [id number] AZUL FITZAPTRICK Self - patient is the insured
[2024-05-20 08:52] VITALS: BP 116/70; PULSE 69; TEMP 36.6; O2SAT 98
== END 2024-05-20 09:11 | disposition home or self-care (01) ==
PROVIDERS: PCP Internal Medicine; Visit Provider Nurse Practitioner Family
DX: R39.9 Unspecified symptoms and signs involving the genitourinary system (principal)

== ENCOUNTER 2024-05-20 09:45 | Outpatient (REF) | payer MEDICARE, SELFPAY ==
[2024-05-20 13:30] LABS: Appearance Urine Turbid; Color Urine Yellow; Glucose Urine UA Negative (Negative); Leukocyte Esterase Urine Large (3+) (Negative); Nitrite Urine Positive (Negative); PH 6.5 (5.0-9.0); Specific Gravity - Urine <= 1.005 (1.005-1.025); UMIC TRIGGER UACC YES; Urine Blood Small (1+) (Negative); Urine Ketones Negative (Negative); Urine Protein Trace mg/dL (Neg-Trace)
[2024-05-20 13:52] LABS: Bacteria Urine 3+ (None Seen); Hyaline Casts Urine 0-2 /LPF (0-2); RBC Urine 0-2 /HPF (0-2); Squamous Epithelial Cell Urine 0-2 /HPF (0-2); UACC Culture Trigger YES; WBC Clumps Urine Present; WBC Urine >50 /HPF (0-5)
== END 2024-05-20 09:46 | disposition home or self-care (01) ==
LOC: HO.HMGCLNP 09:45
PROVIDERS: PCP Internal Medicine; Visit Provider Nurse Practitioner Family
DX: R39.9 Unspecified symptoms and signs involving the genitourinary system (principal)
CPT/HCPCS: 81001; 87086; 87088; 87186; 99212

== ENCOUNTER 2024-07-26 08:16 | Outpatient (REF) | payer MEDICARE, SELFPAY ==
--- NOTE | ~2024-07-26 | US_ITS ---
EXAMINATION: US THYROID HISTORY: E04.1 - Nontoxic single thyroid nodule TECHNIQUE: Real-time grayscale ultrasound imaging was performed and images were reviewed. COMPARISON: Comparison is made with the prior examination dated 08/07/2023. FINDINGS: SIZE: The right thyroid lobe measures 6.0 x 2.6 x 2.3 cm. The left thyroid lobe is surgically absent. The isthmus measures 9 mm. FLOW: Flow to the gland is increased. ECHOGENICITY: The echotexture of the gland is heterogeneous. NODULES: Again seen are multiple right thyroid nodules as described below: Nodule #: 1 Location: Right upper pole measuring 6 x 3 x 5 mm, not seen previously. Shape: Wider than tall (0 points) Margins: Smooth (0 points) Echotexture: Isoechoic (1 point) Composition: Solid (2 points) Calcifications: None (0 points) Total points: 3 TIRADS: TR3: Mildly suspicious. Nodule #: 2 Location: Right upper pole measuring 7 x 4 x 7 mm (previously 6 x 3 x 5 mm). Shape: Wider than tall (0 points) Margins: Smooth (0 points) Echotexture: n/a Composition: Spongiform (0 points) Calcifications: None (0 points) Total points: 0 TIRADS: TR1: Benign Nodule #: 3 Location: Right lower pole measuring 2.1 x 1.3 x 2.0 cm (previously 2.3 x 1.4 x 1.8 cm). Shape: Wider than tall (0 points) Margins: Smooth (0 points) Echotexture: Hypoechoic (2 points) Composition: Solid (2 points) Calcifications: None (0 points) Total points: 4 TIRADS: TR4: Moderately suspicious. US/US thyroid IMPRESSION: Status post left thyroidectomy. Multiple right-sided nodules are again noted. The dominant nodule at the lower pole of the right thyroid lobe is unchanged in size. Continued follow-up is recommended. ACR TI-RADS Guidelines TR1 (0 points): Benign, No follow-up or biopsy required TR2 (2 points): Not Suspicious, No biopsy or follow up indicated TR3 (3 points): Mildly Suspicious, FNA if >= 2.5 cm, Follow if >= 1.5 cm TR4 (4-6 points): Moderately Suspicious, FNA if >= 1.5 cm, Follow if >= 1.0 cm TR5 (>=7 points): Highly Suspicious, FNA if >= 1.0 cm, Follow if >= 0.5 cm Electronically signed by: Andrea Willams MD 07/26/2024 11:20 AM EDT
--- OUTSIDE RECORDS SUMMARY | 2024-07-26 08:23 | XMS_ITS ---
Author Organization [facility] Address [address] [place] [address] Care Team Providers Care Bundle Packer Name Role Phone Tasia LEWIS, Zari Primary Care Provider Andrea Nieto Unavailable [phone] REASON FOR VISIT 05/27 11:20 appt Encounters Encounter Location Date Provider Diagnosis [facility] [address] [place] [address] 05/06/2024 Andrea Montejo Plan Of Treatment Next Appt Details Provider Name:Andrea Montejo , 10/08/2024 10:00:00 AM, [address] [place] [address] , [place], [place], [id number], Progress Notes * AZUL FITZPATRICKDOB:1950 (73 yo F)Acc No.[id number]:05/06/2024 Patient:?AZUL FITZPATRICK :1950???Age:73 Y???Sex:Female Address:[address] [place], [place] [address], [address] * true * Date:? Generated for Printi ng/Fakingg/eTransmitting on:?07/26/2024 08:23 AM EDT
== END 2024-07-26 08:17 | disposition home or self-care (01) ==
LOC: HO.HMGCX 08:16
PROVIDERS: PCP Internal Medicine; Visit Provider Student in an Organized Health Care Education/Training Program
DX: E04.1 Nontoxic single thyroid nodule (principal)
CPT/HCPCS: 76536

== ENCOUNTER → 2024-07-26 08:22 | Outpatient (BNV) | payer MEDICARE, SELFPAY | PROVIDERS: PCP Internal Medicine; Visit Provider Radiology Diagnostic Radiology | DX: E04.2 Nontoxic multinodular goiter (principal) | CPT/HCPCS: 76536 ==

== ENCOUNTER 2024-08-17 07:13 | Outpatient (REF) | payer MEDICARE, SELFPAY ==
[2024-08-17 10:38] LABS: Free T4 (Free Thyroxine) 1.18 ng/dL (0.71-1.85)
[2024-08-17 10:41] LABS: Alanine Aminotransferase 16 U/L (0-31); Anion Gap 12 (12-20); Aspartate Amino Transferase 24 U/L (5-31); Blood Urea Nitrogen 12 mg/dL (9-16); Calcium 9.6 mg/dL (8.4-10.2); Carbon Dioxide 28 mmol/L (22-29); Chloride 108 mmol/L (96-108); Cholesterol 154 mg/dL (<200); Estimated Glomerular Filt Rate > 60; Glucose Fasting 96 mg/dL (60-99); HDL Cholesterol 65 mg/dL (>40); LDL Cholesterol Calculated 75 mg/dL (<100); Potassium 4.7 mmol/L (3.3-5.1); Sodium 143 mmol/L (135-145); Thyroid Stimulating Hormone 1.31 uIU/mL (0.32-4.0); Triglycerides 73 mg/dL (<150)
== END 2024-08-17 07:14 | disposition home or self-care (01) ==
LOC: HO.HMGCLDS 07:13
PROVIDERS: PCP Internal Medicine; Referring Provider Student in an Organized Health Care Education/Training Program; Visit Provider Internal Medicine
DX: I10 Essential (primary) hypertension (principal); E04.1 Nontoxic single thyroid nodule; E78.5 Hyperlipidemia, unspecified
CPT/HCPCS: 36415; 80048; 80061; 84439; 84443; 84450; 84460

== ENCOUNTER 2024-08-24 08:00 | Outpatient (AMB) | payer MEDICARE, SELFPAY ==
--- OUTSIDE RECORDS SUMMARY | 2024-08-24 08:04 | XMS_ITS | Patient Health Record ---
Author Organization [facility] Address [address] [place] [address] Care Team Providers Care Environmental Test Technician Name Role Phone Tasia LEWIS, Zari Primary Care Provider Andrea Nieto [phone] Allergies Allergen (clinical drug ingredient) Drug/Non Drug Allergy documented on EMR Reaction Allergy Type Onset Date Status Substance with sulfonamide structure and antibacterial mechanism of action (substance) Sulfa Antibiotics Unknown Drug Allergy Active Shellfish (FN) Shellfish-derived Products Unknown Drug Allergy Active Reason For Referral No Information Medications Medication SIG (Take, Route, Frequency, Duration) Notes Start Date End Date Status Dicyclomine HCl 10 MG 2 capsules Orally Three times a day Active Loperamide HCl 2 MG 1 capsule as needed Orally Four times a day Active Prolia 60 MG/ML as directed Subcutaneous Active Atorvastatin Calcium 20 MG 1 tablet Orally Once a day Active Plaquenil 200 MG as directed Orally once a day 1-02/25 tabs Active amLODIPine Besylate 5 MG 1 tablet Orally Once a day Active Vitamin D3 Active Social History Tobacco Use: Social History Observation Description Date Details (start date - stop date) Never Smoker NA - NA Tobacco Control (Standard) Question Answer Notes Tobacco use: Nonsmoker AUDIT-C (Standard) Question Answer Notes Did you have a drink containing alcohol in the p ast year? No Points 0 Interpretation Negative Section Notes: Nonsmoker; no sig alcohol Vital Signs Blood pressure diastolic 11 mm Hg 05/27/2024 Height 65 in 05/27/2024 Blood pressure systolic 111 mm Hg 05/27/2024 Weight 116 lbs 05/27/2024 BMI 19.3 kg/m2 05/27/2024 Encounters Encounter Location Date Provider Diagnosis [facility] [address] [place] [address] 05/27/2024 Andrea Montejo Colon cancer screeni ng Z12.11 and Gastroenteritis K52.9 [facility] [address] [place] [address] 05/06/2024 Andrea Montejo Assessments Encounter Date Diagnosis (ICD Code) Assessment Notes Treatment Notes Treatment Clinical Notes Section Notes 05/27/2024 Colon cancer screening (ICD-10 - Z12.11) Overall, Carla appears quite well at the present time and her previous symptoms seem to have completely resolved without any specific treatments other than some symptomatic therapy with dicyclomine and loperamide. Based on her clinical history this certainly seems consistent with some type of infectious gastroenteritis, probably viral given the symptomatology and no associated issues with bleeding or significant fevers. We did review that different types of gastroenteritis can sometimes cause more chronic GI complaints but fortunately her symptoms have resolved completely at the present time. Based on her current history I do not think this reflects any type of problem such as inflammatory bowel disease. Since things are much improved at this time I do not think she needs any specific workup for this. We did review that she could certainly resume her usual diet and just keep an eye on things. I did advise her to certainly let me know if things relapse. I have recommended a screening colonoscopy for her since her last exam was just over 10 years ago. We did review the rationale for this in regard to colorectal cancer prevention. Full consent has been obtained for this, including risks of bleeding and perforation. The procedure will be done with monitored anesthesia care. I did advise Carla to certainly call me prior to the colonoscopy if her symptoms of the diarrhea recur. Carla and her were comfortable with this plan. Thank you again for allowing me to participate in Carla's care. I shall continue to keep you advised of her progress. 05/27/2024 Gastroenteritis (ICD-10 - K52.9) Overall, Carla appears quite well at the present time and her previous symptoms seem to have completely resolved without any specific treatments other than some symptomatic therapy with dicyclomine and loperamide. Based on her clinical history this certainly seems consistent with some type of infectious gastroenteritis, probably viral given the symptomatology and no associated issues with bleeding or significant fevers. We did review that different types of gastroenteritis can sometimes cause more chronic GI complaints but fortunately her symptoms have resolved completely at the present time. Based on her current history I do not think this reflects any type of problem such as inflammatory bowel disease. Since things are much improved at this time I do not think she needs any specific workup for this. We did review that she could certainly resume her usual diet and just keep an eye on things. I did advise her to certainly let me know if things relapse. I have recommended a screening colonoscopy for her since her last exam was just over 10 years ago. We did review the rationale for this in regard to colorectal cancer prevention. Full consent has been obtained for this, including risks of bleeding and perforation. The procedure will be done with monitored anesthesia care. I did advise Carla to certainly call me prior to the colonoscopy if her symptoms of the diarrhea recur. Carla and her were comfortable with this plan. Thank you again for allowing me to participate in Carla's care. I shall continue to keep you advised of her progress. Plan Of Treatment Pending Test Test Name Order Date Colonoscopy 05/27/2024 Next Appt Details Provider Name:Andrea Charles Montejo , 10/08/2024 10:00:00 AM, [address] [place] [address], [phone], Insurance Providers Payer Name Payer Address Payer Phone Subscriber Number Group Number Insured Name Patient Relationship to Insured Coverage Start Date Coverage End Date [facility] [address] [place] [address] [phone] [id number] CARLA FITZPATRICK Self - patient is the insured Medical (General) History Medical History History ICD Code Hypertension Osteoporosis Polymyalgia rheumatica Denies GA,DM,CVA,Lung disease,renal dise ase 2 Negative colonoscopies age 52 and 62 Surgical History Surgery Date(Month/Year) Thyroidectomy left 2000
--- NOTE | 2024-08-24 08:25 | A.OFFPC_ITS ---
Vital Signs 08/24/24 08:28 Height 5 ft 5 in Weight 120 lb BMI 20.0 BP 126/82 Blood Pressure Location Lt brachial Position Sitting Respiration 15 Pulse 67 Pulse Source Pulse Oximeter Temp 98.1 F Pulse Oximetry (%) 97 Oxygen Delivery Method Room Air Intake Visit Reasons: Follow-up Intake Note: Pt is here today for her lab results f/u Allergies shellfish derived (SHELLFISH DERIVED) Allergy (Severe, Verified 08/29/24 23:08) Nausea, vomiting, Sever GI upset Sulfa (Sulfonamide Antibiotics) (SULFA (SULFONAMIDE ANTIBIOTICS)) Allergy (Intermediate, Verified 08/29/24 23:08) RASH, hives/rash TB test Allergy (Unknown, Uncoded 08/29/24 23:08) localized swelling, throat swelling Medication List - Last Reconciled 08/29/24 by Zari Dozier MD amlodipine 5 mg PO DAILY atorvastatin 20 mg PO Q2D 90 days cholecalciferol (vitamin D3) 50 mcg PO DAILY denosumab (Prolia) 60 mg subcut [id number] latanoprost 0.005% 1 drp ophthalmic (eye) BEDTIME loperamide 2 mg PO Q6H PRN Tobacco use date assessed: 08/24/24 Last assessed Fall Risk: 08/24/24 Dental Screening Dental Screen Date: 08/24/24 Did you have a dental visit in the last 12 months?: Yes Did you have a dental problem in the last 6 months where you did not have access to dental care?: No Was dental information given to patient?: Patient has dentist HPI Follow-up HPI Details 74year-old lady with hypertension and dy slipidemia, here today for follow-up. She has been having issues with her bowel movements, now much improved. Compliant with taking her medications, has been feeling well with no new complaints at present time. [facility] Medical History Cystitis Urinary tract infection symptoms Chronic diarrhea Right thyroid nodule Osteopenia of multiple sites Postmenopause Bharath's thyroiditis Nontoxic multinodular goiter PMR (polymyalgia rheumatica) Essential hypertension Dyslipidemia Surgical History Hx of colonoscopy History of thyroidectomy History of tonsillectomy Family History Father Alzheimer's disease Mother HTN (hypertension) CAD (coronary artery disease) Brother CAD (coronary artery disease) Sister No problems noted. Son No problems noted. Son No problems noted. Social History Housing: Condominium Alcohol intake: current Patient Tobacco Use Status: Never used Tobacco e-Cigarette/Vaping Use: Never Used Second Hand Smoke Exposure: No Current occupational status: retired Cognitive needs: No Hearing needs: No Vision needs: Yes Questionnaire PHQ-9 Over the last 2 weeks, how often have you been bothered by any of the following problems? 1. Little interest or pleasure in doing things: not at all 2. Feeling down, depressed, or hopeless: not at all 3. Trouble falling or staying asleep, or sleeping too much: not at all 4. Feeling tired or having little energy: not at all 5. Poor appetite or overeating: not at all 6. Feeling bad about yourself - or that you are a failure or have let yourself or your family down: not at all 7. Trouble concentrating on things, such as reading the newspaper or watching television: not at all 8. Moving or speaking so slowly that other people could have noticed. Or the opposite - being so fidgety or restless that you have been moving around a lot more than usual: not at all 9. Thoughts that you would be better off or of hurting yourself in some way: not at all Total score: 0 Depression Screening Interpretation: Negative Depression Screening Done: Yes 50558 - PHQ-9 Billing: Yes Source: Developed by Drs. Andrea Ba, Yoko Murcia, Jesse Gould and colleagues, with an educational sigifredo from [employer]. Thrive Questionnaire Date Thrive assessed: 08/24/24 I am a: Patient What is your living situation today?: I have a steady place to live Within the past 12 months, did the food you bought not last and you didn't have the money to get more?: Never true Within the past 12 months, did you worry whether your food would run out before you got money to buy more?: Never true Do you have trouble paying for medicines?: No Do you have trouble getting transportation to medical appointments?: No Do you have trouble paying your heating and electricity bill?: No Do you have trouble taking care of your child, family member or friend?: No Do you have trouble with day-to-day activities such as bathing, preparing meals, shopping, managing finances, etc.?: No Are you currently unemployed and looking for a job?: No Are you interested in more education?: No Please select the resources that you would like help with: None Currently or been in a relationship where the following occur: No concerns reported THRIVE Score: 0 AUDIT C Alcohol Use Questionnaire (AUDIT-C) 1. How often do you have a drink containing alcohol?: 2-4 times a month 2. How many drinks containing alcohol do you have on a typical day when you are drinking?: 1 or 2 3. How often do you have six or more drinks on one occasion?: Never Total Score: 2 GER-7 AMB Questionnaire GER-7 Date GER - 7 assessed: 08/24/24 Feeling nervous, anxious, or on edge: 0 = Not at all Not being able to stop or control worryin = Not at all Worrying too much about different things: 0 = Not at all Trouble relaxin = Not at all Being so restless that it is hard to sit still: 0 = Not at all Becoming easily annoyed or irritable: 0 = Not at all Feeling afraid as if something awful might happen: 0 = Not at all Total GER-7 score (0-4 normal; 5-9 mild; 10-14 moderate; 15-21 severe): 0 Source: Developed by Drs. Andrea Ba, Yoko Murcia, Jesse Gould and colleagues, with an educational sigifredo from [employer]. GER-7 Assessment Billing GER-7 Assessment Tool: GER-7 Assessment 92086 Review of Systems Const All systems reviewed & are unremarkable except as noted in HPI and below Physical exam (Primary Care) Vital Signs: Last Vital Signs Temp 98.1 F 08/24/24 08:28 Pulse 67 08/24/24 08:28 Resp 15 08/24/24 08:28 BP 126/82 08/24/24 08:28 Pulse Ox 97 08/24/24 08:28 Oxygen Delivery Method Room Air 08/24/24 08:28 BMI result Body Mass Index 20.0 Tobacco/Smoking Status: Tobacco use Status Tobacco use date assessed 08/24/24 08/24/24 08:32 Patient Tobacco Use Status Never used Tobacco 08/24/24 08:32 e-Cigarette/Vaping Use Never Used 08/24/24 08:32 PHQ-9: PHQ-9 Score PHQ-9: Total score 0 08/24/24 09:13 Depression Screening Interpretation: Negative Thrive Assessment: Date of Thrive Assessment Date Thrive assessed 08/24/24 08/24/24 08:32 Currently or been in a relationship where the following occur: No concerns reported Const General: cooperative, comfortable and no acute distress Orientation/consciousness: patient oriented x3 HENMT Ears: external ears normal General nose exam: Normal external nose present Face and sinus: Yes face symmetric Mouth: Normal oral and palatal mucosa present, oropharynx normal and moist mucous membranes Neck Neck: Yes full ROM, Yes no lymphadenopathy and Yes supple Resp Effort & Inspection: normal respiratory effort and able to speak in complete sentences Auscultation: clear to auscultation bilaterally Cardio Rate: regular rate Rhythm: regular rhythm Heart sounds: S1 normal heart sound present and S2 normal heart sound present GI Palpation (GI): Soft to palpation, nontender, no guarding and no masses Neuro General: patient oriented x3, gait normal, tone normal, moves all extremities, Normal light touch and pain sensation and no focal motor deficits Cognition (Neuro): normal cognition Gait exam (Neuro): Normal gait present Motor exam (neuro): 5/5 motor strength present throughout Extrem General: Yes full ROM, Yes no joint enlargement, Yes no clubbing, cyanosis or edema, Yes no calf tenderness and Yes normal gait Results Reviewed Results Reviewed: Name: Carla Godinez Age/Sex: 73/F : 1950 Unit#: [id number] Attend Dr: Zari Dozier MD Re08/17/24 Status: [facility]P [facility]: SPEC : [id number] ANABELLA: 08/17/24 STATUS: COMP REQ : [id number] RECD: 08/17/[address]: Zari Dozier MD COMP: 08/17/241041 ENTERED: 08/17/[address]: Gypsy Shane MD ORDERED: Met Prof Fast, AST, ALT, Lipid Panel, TSH Test Result Flag Reference Sodium 143 135-145 mmol/L Potassium 4.7 3.3-5.1 mmol/L CL 108 96-108 mmol/L CO2 28 22-29 mmol/L Gap 12 12-20 BUN 12 9-16 mg/dL Creat 0.82 0.5-1.4 mg/dL eGFR > 60 Chronic Kidney Disease: Estimated GFR < 60 mL/m in/1.73m2 Severe Kidney Disease: Estimated GFR < 15 mL/min/1.73m2 FBS 96 60-99 mg/dL CA 9.6 # 8.4-10.2 mg/dL AST (GOT) 24 5-31 U/L ALT (GPT) 16 0-31 U/L Triglyceride 73 <150 mg/dL Desirable Triglyceride: less than 150 mg/dL Borderline High Triglyceride 150-199 mg/dL High Triglyceride: 200-499 mg/dL Very High Triglyceride: greater than or equal to 5OO mg/dL Cholesterol 154 <200 mg/dL Desirable Cholesterol: less than 200 mg/dL Borderline High Cholesterol: 200-239 mg/dL High Cholesterol: greater than 239 mg/dL LDL Calculated 75 <100 mg/dL Desirable LDL: less than 100 mg/dL Near Optimal/Above Optimal LDL: 110-129 mg/dL Borderline High LDL: 130-159 mg/dL High LDL: 160-189 mg/dL Very High LDL: greater than or equal to 190 mg/dL HDL 65 >40 mg/dL Desirable HDL: greater than 40 mg/dL Note: This HDL assay may give artificially low results in patients with liver disease. TSH 3rd Gen. 1.31 0.32-4.0 uIU/mL TSH 3rd Generation ([facility]) Coding Level of Care Code Est Pt Level 4 (65356) Diagnoses Essential hypertension I10 Dyslipidemia E78.5 Diarrhea, unspecified type R19.7 Diarrhea type: unspecified type Additional Codes PHQ-9 - 33363 - PHQ-9 Billing: Yes ([id number]) GER-7 Assessment Billing - GER-7 Assessment Tool: GER-7 Assessment 84334 ([id number]) Assessment & Plan Assessment & Plan (1) Essential hypertension: Code(s): I10 - Essential (primary) hypertension Category: Medical Plan: Blood pressure at goal of less than 130/80. Continue with current medication. Reinforced importance of following a low sodium diet, getting regular exercise, and lowering stress levels. (2) Dyslipidemia: Code(s): E78.5 - Hyperlipidemia, unspecified Category: Medical Plan: Reviewed recent fasting lipid profile with patient with levels within normal limit . Continue atorvastatin 20 mg 1 tablet every other day , in addition to adherence to low-cholesterol diet and regular exercise, at least 30 minutes 3 to 4 times a week. Advised patient to make healthy food choices, eat more fruits, vegetables, whole grains, wild caught fish and low-fat dairy. Limit amount of meat and fried or fatty food products, as well as processed foods and fast foods. Follow-up scheduled with repeat fasting lipid panel in months. (3) Diarrhea: Code(s): R19.7 - Diarrhea, unspecified Category: Medical Qualifiers: Diarrhea type: unspecified type Qualified Code(s): R19.7 - Diarrhea, unspecified Plan: Improving currently takes loperamide only as needed, followed by GI clinic
[2024-08-24 08:28] VITALS: BP 126/82; PULSE 67; RESP 15; TEMP 36.7; O2SAT 97
== END 2024-08-24 09:15 | disposition home or self-care (01) ==
LOC: HO.HMCC 08:01
PROVIDERS: PCP Internal Medicine; Visit Provider Internal Medicine
DX: I10 Essential (primary) hypertension (principal); E78.5 Hyperlipidemia, unspecified; R19.7 Diarrhea, unspecified

== ENCOUNTER → 2024-08-24 08:00 | Outpatient (BNVA) | payer MEDICARE, SELFPAY | PROVIDERS: PCP Internal Medicine; Visit Provider Internal Medicine | DX: I10 Essential (primary) hypertension (principal); E78.5 Hyperlipidemia, unspecified; R19.7 Diarrhea, unspecified | CPT/HCPCS: 96127; 99212 ==

== ENCOUNTER 2024-10-05 12:30 | Outpatient (REF) | payer MEDICARE, SELFPAY ==
--- NOTE | ~2024-10-05 | MM_ITS ---
EXAMINATION: MM SCREENING DIGITAL BREAST TOMOSYNTHESIS, BILATERAL CLINICAL INFORMATION: Screening. Asymptomatic. COMPARISON: Comparison made to multiple prior, most recent October 03, 2022, and most remote January 11, 2019. TECHNIQUE: Digital breast tomosynthesis is performed in both the craniocaudal and mediolateral oblique views along with computer-aided detection (CAD). Synthesized 2D images are generated from the tomosynthesis. FINDINGS: BREAST COMPOSITION: The breasts are heterogeneously dense, which may obscure small masses (ACR BI-RADS breast composition Category c). BILATERAL BREASTS: No significant masses, suspicious calcifications or other abnormalities are seen in either breast. MM/MM tomosynthesis screening BI IMPRESSION: BILATERAL BREASTS: Negative, no mammographic evidence of malignancy. Normal interval follow-up is recommended in 12 months. ASSESSMENT: BI-RADS 1 - Negative RECOMMENDATION: Routine annual mammography screening. FOLLOW-UP: 1 year F/U This examination should not preclude the clinical evaluation of a suspicious palpable abnormality. This patient's information was entered into a reminder system with a target due date for their next mammogram. Electronically signed by: Consuelo Lopez MD 10/11/2024 04:31 PM EDT
--- NOTE | ~2024-10-05 | MM_ITS ---
EXAMINATION: DXA BONE DENSITY AXIAL HISTORY: OSTEOPOROSIS TECHNIQUE: TouchPo Android POS Dual energy absorptiometry (DEXA) of the lumbar spine, total left hip, and femoral neck was performed. COMPARISON: Comparison is made with the prior examination dated 10/03/2022. FINDINGS: The bone mineral density of the lumbar spine is 0.996 g/cm2, corresponding to a T-score of -1.5, and a Z-score of 0.5. This is indicative of osteopenia. This represents a BMD change of 3.6% compared to the prior exam. This is statistically significant. The bone mineral density of the left total hip is 0.819 g/cm2, corresponding to a T-score of -1.5, and a Z-score of 0.3. This is indicative of osteopenia. This represents a BMD change of 22.2% compared to the prior exam. This is statistically significant. The bone mineral density of the left femoral neck is 0.793 g/cm2, corresponding to a T-score of -1.8, and a Z-score of 0.2. This is indicative of osteopenia. This represents a BMD change of 28.5% compared to the prior exam. FRACTURE RISK: The FRAX index suggests a ten year probability of major osteoporotic fracture of 10.1%, and of hip fracture 2.1%. MM/XR DEXA axial skeleton IMPRESSION: Based on bone mineral density, and according to World Health Organization (WHO) criteria, the diagnosis is consistent with osteopenia. Statistically, 68% of repeat scans fall within 1 SD (+/- 0.010 g/cm2 for AP spine L1-L4) and 1 SD (+/- 0.012 g/cm2 for femur total) FRAX is a trademark of the [employer] [place] for Metabolic Bone Disease, a World Health Organization (WHO) Collaborating Center. Electronically signed by: Andrea Willams MD 10/05/2024 03:29 PM EDT
--- OUTSIDE RECORDS SUMMARY | 2024-10-05 13:15 | XMS_ITS | Clinical Summary ---
Author Organization [facility] Address [address] [place] [id number] Phone Care Team Providers Care Returned Materials Inspector Name Role Phone Zari Dozier MD Primary [...] into each eye nightly at bedtime. Active hydroxychloroqui ne (PLAQUENIL) 200 mg tabletIndication s:Polymyalgia rheumatica TAKE 1/2 TABLET EVERY MORNING WITH BREAKFAST AND 1 WITH SUPPER 135 tablet 3 5 Active denosumab (PROLIA) 60 mg/mL Syrg subcutaneous syringeIndicatio ns:Age-related osteoporosis without current pathological fracture Inject 1 mL (60 mg total) under the skin once for 1 dose. 1 mL 1 5 Active PROLIA 60 mg/mL Syrg subcutaneous syringeIndicatio ns:Age-related osteoporosis without current pathological fracture INJECT 1 SYRINGE UNDER THE SKIN ONCE EVERY 6 MONTHS 1 mL 1 5 09/21/19 25 Discontin ued(Reord er) Active Problems Problem Noted Date Diagnosed Date Encounter for monitoring denosumab therapy 04/02 Assessment & Plan (04/03/2024 8:33 PM EST): I reminded her to get chemistry profile within 30 days of each every 6 months Prolia injections - standing orders in [facility]. Interval BMD requested Age-related osteoporosis ru sethi current pathological fracture 03/07/2023 Assessment & Plan [...] as prescribed. Daily sun protection. Follow-up with life insurance sales agent at least once a year. Assessment & Plan (06/06/2023 9:21 AM EDT): Carefully continue as prescribed. Daily sun protection. Follow-up with life insurance sales agent at least once a year. Assessment & Plan (03/07/2023 10:33 AM EST): Carefully continue as prescribed. Daily sun protection. Follow-up with life insurance sales agent at least once a year. Assessment & Plan (09/04/2022 10:45 AM EDT): Carefully continue as prescribed. Daily sun protection. Follow-up with life insurance sales agent at least once a year. Assessment & Plan (03/04/2022 11:35 AM EST): Carefully continue as prescribed. Daily sun protection. Follow-up with life insurance sales agent at least once a year. Assessment & Plan (09/06/2021 12:06 PM EDT): Carefully continue as prescribed. Daily sun protection. Follow-up with life insurance sales agent at least once a year. Assessment & Plan (04/30/2021 11:28 AM EST): Carefully continue as prescribed. Daily sun protection. Follow-up with life insurance sales agent at least once a year. Assessment & Plan (01/29/2021 10:44 AM EST): Carefully continue as prescribed. Daily sun protection. Follow-up with life insurance sales agent at least once a year. Assessment & Plan (10/26/2020 8:56 AM EDT): Carefully continue as prescribed. Daily sun protection. Follow-up with life insurance sales agent at least once a year. Assessment & Plan (07/26/2020 9:15 AM EDT): Carefully continue as prescribed. Daily sun protection. Follow-up with life insurance sales agent at least once a year. Assessment & Plan (06/06/2020 11:54 PM EDT): Carefully continue as prescribed. Daily sun protection. Follow-up with life insurance sales agent at least once a year. Polymyalgia rheumatica [...] visit in 4 months -standing orders in [facility]. Continue gentle, regular exercise routine as [...] visit in 4 months -standing orders in [facility]. Continue gentle, regular exercise routine as [...] visit in 3 months -standing orders in [facility]. Continue gentle, regular exercise routine as [...] next visit in 6 months-standing orders in [facility]. Continue gentle, regular exercise routine as [...] next visit in 6 months-standing orders in [facility]. Continue gentle, regular exercise routine as [...] sparing medication. She has checked with her life insurance sales agent that there are any contraindications to start [...] for discussion. She has checked with her life insurance sales agent that there are any contraindications to start [...] for discussion. She has checked with her life insurance sales agent that there are any contraindications to start [...] sheets- see details in instruction section of [facility] with today's date Continue gentle, regular [...] She is asked to check with her life insurance sales agent whom she had seen last week whether [...] 10:56 AM EST): Continue close follow-up with life insurance sales agent as scheduled and make sure there are no contraindications to starting Plaquenil. Assessment & Plan (12/29/2019 11:23 PM EST): Continue close follow-up with life insurance sales agent as scheduled and make sure there are [...] regular checkups every 3-4 months-standing orders in [facility]. Assessment & Plan (09/04/2022 10:44 AM EDT): I have reviewed with Carla details of proper weekly administration and need for proper hydration with regular checkups every 3-4 months-standing orders in [facility]. Assessment & Plan (03/04/2022 11:35 AM EST): I have reviewed with Carla details of proper weekly administration and need for proper hydration with regular checkups every 3-4 months-standing orders in [facility]. Assessment & Plan (09/06/2021 12:05 PM EDT): I have reviewed with Carla details of proper weekly administration and need for proper hydration with regular checkups every 3-4 months-standing orders in [facility]. Assessment & Plan (04/30/2021 11:27 AM EST): I have reviewed with Carla details of proper weekly administration and need for proper hydration with regular checkups every 3-4 months-standing orders in [facility]. Assessment & Plan (02/22/2021 3:00 PM EST): I have reviewed with Carla details of proper weekly administration and need for proper hydration with regular checkups every 3-4 months-standing orders in [facility]. emt intermediate current use of systemic steroids 02/10/2020 01/29/2021 [...] due for interval BMD next week at [facility]. Assessment & Plan (03/05/2022 3:27 PM EST): Proper calcium and vitamin D supplementation. Fall and fracture prevention strategies. Due to diffuse osteopenia that has progressed within the last couple of years I have offered her bone preserving therapy with Fosamax 70 mg weekly-that she tolerates every Friday morning. She is due for interval BMD after 06/07/2022 at [facility]. Assessment & Plan (09/06/2021 12:06 PM EDT): Proper calcium and vitamin D supplementation. Fall and fracture prevention strategies. Due to diffuse osteopenia that has progressed within the last couple of years I have offered her bone preserving therapy with Fosamax 70 mg weekly-that she tolerates every Juan morning. Assessment & Plan (02/22/2021 2:58 PM [...] cuts. Monitor for excessive bruising and bleeding. Encounters Date Type Department Care Team Description 09/30/2024 9:00 AM EDT Nurse Only [facility] [address] [place] [address] [place] [address] Zari Dozier MD Klich-Nowak, Teresa I, MD Age-related osteoporosis without current pathological fracture (Primary Dx) 09/27/2024 8:30 AM EDT - 09/27/2024 11:59 PM EDT Hospital Encounter [facility] [address] [place] [address] [place] [address] Ronit King MD Discharge Disposition: Home or Self Care 09/24/2024 Orders Only [facility] [address] [place] [address] [place] [address] Essie Moran RN Age-related osteoporosis without current pathological fracture (Primary Dx) 09/20/2024 Refill [facility] [address] [place] [address] [place] [address] Ronit King MD 09/17/2024 Telephone [facility] [address] [place] [address] [place] [address] Leslie Guerrero CMA from Last 3 Months Immunizations Immunization Administration Dates Next Due COVID-19 [...] Sign Reading Time Taken Comments Blood Pressure 108/64 09/30/2024 9:02 AM EDT Pulse 69 04/02/2024 8:57 AM EST Temperature [...] Care Team (Late st Contact Info) Description 04/01/2025 9:00 AM EST Office Visit [facility] [address] [place] [address] Ronit King MD [address] [facility], [address] [place] [address] [email or web address] Health Maintenance Due Date Last Done Comments [...] Procedure Name Priority Date/Time Associated Diagnosis Comments COMPREHENSIVE METABOLIC PANEL Routine 09/27/2024 8:37 AM EDT Polymyalgia rheumatica Long-term use of Plaquenil Age-related osteoporosis without current pathological fracture C-REACTIVE PROTEIN Routine 09/27/2024 8: 37 AM EDT Polymyalgia rheumatica Long-term use of Plaquenil SEDIMENTATION RATE (ESR) Routine 09/27/2024 8:37 AM EDT Polymyalgia rheumatica Long-term use of Plaquenil CBC AND DIFFERENTIAL Routine 09/27/2024 8:37 AM EDT Polymyalgia rheumatica Long-term use of Plaquenil BD DXA SCREENING Routine 04/02/2024 9:30 AM EST Age-related osteoporosis without current pathological fracture Encounter for monitoring denosumab therapy from Last 3 Months or Most Recently Relevant to Health Maintenance Results * Comprehensive metabolic panel (09/27/2024 8:37 AM EDT) SODIUM 142 133 - 146 mmol/L [facility] POTASSIUM 4.0 3.3 - 5.1 mmol/L [facility] CHLORIDE 103 96 - 108 mmol/L [facility] CO2 29 21 - 35 mmol/L [facility] BUN 10 6 - 19 mg/dL [facility] CREATININE 0.70 0.5 - 1.5 mg/dL [facility] GLUCOSE 90 70 - 99 mg/dL [facility] ALBUMIN 4.3 3.9 - 4.8 g/dL [facility] TOTAL PROTEIN 6.9 6.5 - 8.0 g/dL [facility] CALCIUM 9.6 8.4 - 10.3 mg/dL [facility] ALKALINE PHOSPHATASE 56 39 - 117 U/L [facility] TOTAL BILIRUBIN 0.6 0.0 - 1.2 mg/dL [facility] AST 14 0 - 37 U/L [facility] ALT 10 0 - 40 U/L [facility] GLOBULIN 2.6 1 - 4.8 g/dL [facility] EGFR 92 >59 mL/min/1.7 3m2 [facility] Comment:Estimated glomerular filtration rate calculated using the CKD-EPI refit equation. ANION GAP 14 10 - 20 mmol/L [facility] Blood 09/27/2024 8:37 AM EDT 09/27/2024 8:41 AM EDT us Ronit King MD LAB BLOOD ORDERABLES Fin al Result Performing Organization Address City/[facility]/ZIP Co de Phone Number [address] [address] * Sedimentation rate (ESR) (09/27/2024 8:37 AM EDT) ESR 7 0 - 30 mm/h [facility] Blood 09/27/2024 8:37 AM EDT 09/27/2024 8:41 AM EDT us Ronit King MD LAB BLOOD ORDERABLES Fin al Result Performing Organization Address [facility] Co de Phone Number [address] [address] * CBC and differential (09/27/2024 8:37 AM EDT) WBC 5.52 4.00 - 11.00 K/uL [facility] RBC 4.68 4.00 - 5.20 M/uL [facility] HGB 13.8 12.0 - 16.0 g/dL [facility] HCT 43.0 36.0 - 46.0 % [facility] PLT 201 150 - 450 K/uL [facility] MCV 91.9 80.0 - 100.0 [facility] MCH 29.5 27.0 - 31.0 pg [facility] MCHC 32.1 32.0 - 36.0 g/dL [facility] RDW 12.9 11.5 - 14.5 % [facility] MPV 11.1 8.4 - 12.0 fL [facility] NRBC 0.00 0.00 /100 WBCs [facility] ABSOLUTE NRBC 0.00 0.00 K/uL [facility] DIFF METHOD Auto [facility] NEUTS 59.5 48.0 - 76.0 % [facility] LYMPHS 25.9 18.0 - 41.0 % [facility] MONOS 10.0 4.0 - 11.0 % [facility] EOS 3.3 0.0 - 5.0 % [facility] BASOS 1.1 0.0 - 1.5 % [facility] Granulocytes, immature (%) 0.2 0.0 - 0.9 % [facility] ABSOLUTE NEUTS 3.29 1.92 - 7.60 K/uL [facility] ABSOLUTE LYMPHS 1.43 0.72 - 4.10 K/uL [facility] ABSOLUTE MONOS 0.55 0.16 - 1.10 K/uL [facility] ABSOLUTE EOS 0.18 0.00 - 0.50 K/uL [facility] ABSOLUTE BASOS 0.06 0.00 - 0.15 K/uL [facility] Granulocytes, immature 0.01 0.00 - 0.09 K/uL [facility] Blood 09/27/2024 8:37 AM EDT 09/27/2024 8:41 AM EDT us Ronit King MD LAB BLOOD ORDERABLES Fin al Result [address] [address] * C-Reactive Protein (09/27/2024 8:37 AM EDT) C REACTIVE PROTEIN <3.0 0.0 - 4.0 mg/L [facility] Blood 09/27/2024 8:37 AM EDT 09/27/2024 8:41 AM EDT Ronit King MD LAB BLOOD ORDERABLES Fin al Result [address] [address] * DEXA SCAN (10/03/2022) us Historical Provider HEALTH MAINTENANCE Final Result from Last 3 Months or Most Recently Relevant to Health Maintenance [place] [address] [place] [address] MEDICARE PPO BLUE [place] [address] [place] [address] MEDICARE PPO BLUE REPLACEMENT [facility] MEDICARE PPO [place] [address] [place] [address] MEDICARE PPO [place] [address] [place] [address] MEDICARE PPO [place] [address] [place] [address] MEDICARE PPO [address] [place] [address] [place] [address] MEDICARE PPO BLUE REPLACEMENT [facility] MEDICARE PPO BLUE REPLACEMENT [facility] MEDICARE PPO BLUE REPLACEMENT Care Teams Returned Materials Inspector Relationship Specialty Start Date End Date Zari Dozier MD [address] [facility] [place] [address] PCP - General Internal Medicine 11/11/19 Additional Source Comments The information contained in this document represents components of the legal health record. It is not the complete legal health record.[facility]
--- OUTSIDE RECORDS SUMMARY | 2024-10-05 13:15 | XMS_ITS | Patient Health Record ---
Author Organization [facility] Address [address] [place] [address] Care Team Providers Care Baccarat Dealer Name Role Phone Tasia LEWIS, Zari Primary Care Provider Andrea Nieto [phone] Allergies Allergen (clinical drug ingredient) Drug/Non Drug [...] 05/27/2024 Encounters Encounter Location Date Provider Diagnosis [facility] [address] [place] [address] 05/27/2024 Andrea Montejo Colon cancer screeni ng Z12.11 and Gastroenteritis K52.9 [facility] [address] [place] [address] 05/06/2024 Andrea Montejo Assessments Encounter Date Diagnosis [...] Name:Andrea Charles Montejo , 10/08/2024 10:00:00 AM, [address] [place] [address], [id number], Insurance Providers Payer Name Payer Address Payer Phone Subscriber Number Group Number Insured Name Patient Relationship to Insured Coverage Start Date Coverage End Date [facility] [address] [place] [address] [id number] CARLA FITZPATRICK Self - patient is the insured Medical (General) History Medical History History ICD Code Hypertension Osteoporosis Polymyalgia rheumatica Denies AL,DM,CVA,Lung disease,renal dise ase 2 Negative colonoscopies age 52 and 62 Surgical History Surgery Date(Month/Year) Thyroidectomy left 2000
== END 2024-10-05 12:31 | disposition home or self-care (01) ==
LOC: HO.MAMMO 12:30
PROVIDERS: PCP Internal Medicine; Visit Provider Internal Medicine Rheumatology
DX: Z12.31 Encounter for screening mammogram for malignant neoplasm of breast (principal); Z13.820 Encounter for screening for osteoporosis; M85.89 Other specified disorders of bone density and structure, multiple sites
CPT/HCPCS: 77063; 77067; 77080

== ENCOUNTER → 2024-10-05 13:00 | Outpatient (BNV) | payer MEDICARE, SELFPAY | PROVIDERS: PCP Internal Medicine; Visit Provider Radiology Diagnostic Radiology | DX: E28.39 Other primary ovarian failure (principal) | CPT/HCPCS: 77080 ==

== ENCOUNTER 2024-10-08 08:53 | Day surgery (SDC) | payer MEDICARE, SELFPAY ==
--- OUTSIDE RECORDS SUMMARY | 2024-09-15 13:36 | XMS_ITS | Patient Health Record ---
Author Organization [facility] Address [address] [place] [address] Care Team Providers Care Patient Access Registrar Name Role Phone Tasia LEWIS, Zari Primary Care Provider Andrea Nieto [phone] Allergies Allergen (clinical drug ingredient) Drug/Non Drug [...] 05/27/2024 Encounters Encounter Location Date Provider Diagnosis [facility] [address] [place] [address] 05/27/2024 Andrea Montejo Colon cancer screeni ng Z12.11 and Gastroenteritis K52.9 [facility] [address] [place] [address] 05/06/2024 Andrea Montejo Assessments Encounter Date Diagnosis [...] Name:Andrea Charles Montejo , 10/08/2024 10:00:00 AM, [address] [place] [address], [id number], Insurance Providers Payer Name Payer Address Payer Phone Subscriber Number Group Number Insured Name Patient Relationship to Insured Coverage Start Date Coverage End Date [facility] [address] [place] [address] [id number] CARLA FITZPATRICK Self - patient is the insured Medical (General) History Medical History History ICD Code Hypertension Osteoporosis Polymyalgia rheumatica Denies [place],DM,CVA,Lung disease,renal dise ase 2 Negative colonoscopies age 52 and 62 Surgical History Surgery Date(Month/Year) Thyroidectomy left 2000
--- OUTSIDE RECORDS SUMMARY | 2024-09-15 13:36 | XMS_ITS | Clinical Summary ---
Author Organization [facility] Address [address] [place] [id number] Phone Care Team Providers Care Nurse Monitoring Name Role Phone Zari Dozier MD Primary Care Provider Allergies Active Allergy Reactions Criticality Noted Date Comments Shellfish Containing Products 2019 Sulfa (Sulfonamide Antibiotics) 05/2019 Medications cholecalciferol (VITAMIN D3) 2,000 unit capsule Take 1 capsule by mouth daily. Active atorvastatin (LIPITOR) 20 MG tablet Take 20 mg by mouth every other day. Active amlodipine besylate (AMLODIPINE ORAL) Take 5 mg by mouth daily. Active latanoprost (XALATAN) 0.005 % ophthalmic solution Place 1 drop into each eye nightly at bedtime. Active PROLIA 60 mg/mL Syrg subcutaneous syringeIndication s:Age-related osteoporosis without current pathological fracture INJECT 1 SYRINGE UNDER THE SKIN ONCE EVERY 6 MONTHS 1 mL 1 5 Active hydroxychloroquin e (PLAQUENIL) 200 mg tabletIndications :Polymyalgia rheumatica TAKE 1/2 TABLET EVERY MORNING WITH BREAKFAST AND 1 WITH SUPPER 135 tablet 3 5 Active Active Problems Problem Noted Date Diagnosed Date Encounter for monitoring denosumab therapy 04/02 Assessment & Plan (04/03/2024 8:33 PM EST): I reminded her to get chemistry profile within 30 days of each every 6 months Prolia injections - standing orders in [facility]. Interval BMD requested Age-related osteoporosis wit hout current pathological fracture 03/07/2023 Assessment & Plan (04/03/2024 8:32 PM EST): Due to interval osteoporosis within her left hip despite regular calcium and vitamin D supplementation, 2-3/7 days a week walking 3 miles and weekly Fosamax I am offering her adjusting bone preserving therapy by switching to either once every 6 months subcutaneous Prolia or monthly subcutaneous Evenity. I briefly explained to her the most frequent side effects of each of those medications and provided her with pamphlets on it to review at home and write questions. She agreed to take every 6 months subcutaneous Prolia that she started on 03/31/2023 and will get the next dose with the nurse on 09/30/2023. Follow-up with me and next Prolia afterwards on 04/02/2024. Continue proper calcium vitamin D supplementation + daily weightbearing exercises + fall and fracture prevention strategies. Documentation to prescribe Prolia for postmenopausal osteoporosis at high risk for fracture should include but is not limited to the following: Are supplemental Calcium & Vitamin D prescribed?: (Required) Y Patient's Age and Sex: 73yoF Menopausal Status: Postmenopausal Is there documentation supporting the diagnosis of Osteoporosis?: Y Previous treatment of Osteoporosis: Y Agents used: Fosamax Outcomes: Interval left hip osteoporosis on BMD despite weekly Fosamax, 3 miles daily walking, proper calcium and vitamin D supplementation Adverse reactions (if any): History of previous fracture(s): N Type of fracture: Cause: Time since occurrence: Risk factors for future fracture, including preventive measures: Injected subcutaneously into Right arm. PATIENT SUPPLIED Assessment & Plan (06/09/2023 11:02 AM EDT): Due to interval osteoporosis within her left hip despite regular calcium and vitamin D supplementation, 2-3/7 days a week walking 3 miles and weekly Fosamax I am offering her adjusting bone preserving therapy by switching to either once every 6 months subcutaneous Prolia or monthly subcutaneous Evenity. I briefly explained to her the most frequent side effects of each of those medications and provided her with pamphlets on it to review at home and write questions. She agreed to take every 6 months subcutaneous Prolia that she started on 03/31/2023 and will get the next dose with the nurse on 09/30/2023. Follow-up with me and next Prolia afterwards on 04/02/2024. Continue proper calcium vitamin D supplementation + daily weightbearing exercises + fall and fracture prevention strategies. Assessment & Plan (03/09/2023 7:11 PM EST): Due to interval osteoporosis within her left hip despite regular calcium and vitamin D supplementation, 2-3/7 days a week walking 3 miles and weekly Fosamax I am offering her adjusting bone preserving therapy by switching to either once every 6 months subcutaneous Prolia or monthly subcutaneous Evenity. I briefly explained to her the most frequent side effects of each of those medications and provided her with pamphlets on it to review at home and write questions. She is asked to continue current regimen until she decides on her preference. Tendinitis of left rotator cuff 04/30/2021 Assessment & Plan (05/06/2021 9:44 AM EDT): Use warm packs versus warm shower prior to gentle, regular exercise routine- examples of exercises with pictures and detailed descriptions of technique printed today for home use. Avoid repetitive pulling, lifting above the shoulder level, heavy lifting. Use warm pack and topical cream versus patch 2-3 times daily as needed. If not better or worse may need to consider formal PT and/or local steroid injection. Advice given about COVID-19 virus infection 06/2020 Assessment & Plan (10/29/2020 7:49 PM EDT): Since she completed COVID-19 Pfizer vaccine on 05/12/2020 she may be due for 3rd COVID-19 vaccine dose on 01/12/2021. Cloudy urine 10/26/2020 Assessment & Plan (10/29/2020 7:47 PM EDT): Proper hydration. Drink cranberry juice or take cranberry pills and get urinalysis to check for UTI Long-term use of Plaquenil 05/29/2020 Assessment & Plan (04/02/2024 9:38 AM EST): Carefully continue as prescribed. Daily sun protection. Follow-up with instrument room technician at least once a year. Assessment & Plan (06/06/2023 9:21 AM EDT): Carefully continue as prescribed. Daily sun protection. Follow-up with instrument room technician at least once a year. Assessment & Plan (03/07/2023 10:33 AM EST): Carefully continue as prescribed. Daily sun protection. Follow-up with instrument room technician at least once a year. Assessment & Plan (09/04/2022 10:45 AM EDT): Carefully continue as prescribed. Daily sun protection. Follow-up with instrument room technician at least once a year. Assessment & Plan (03/04/2022 11:35 AM EST): Carefully continue as prescribed. Daily sun protection. Follow-up with instrument room technician at least once a year. Assessment & Plan (09/06/2021 12:06 PM EDT): Carefully continue as prescribed. Daily sun protection. Follow-up with instrument room technician at least once a year. Assessment & Plan (04/30/2021 11:28 AM EST): Carefully continue as prescribed. Daily sun protection. Follow-up with instrument room technician at least once a year. Assessment & Plan (01/29/2021 10:44 AM EST): Carefully continue as prescribed. Daily sun protection. Follow-up with instrument room technician at least once a year. Assessment & Plan (10/26/2020 8:56 AM EDT): Carefully continue as prescribed. Daily sun protection. Follow-up with instrument room technician at least once a year. Assessment & Plan (07/26/2020 9:15 AM EDT): Carefully continue as prescribed. Daily sun protection. Follow-up with instrument room technician at least once a year. Assessment & Plan (06/06/2020 11:54 PM EDT): Carefully continue as prescribed. Daily sun protection. Follow-up with instrument room technician at least once a year. Polymyalgia rheumatica 12/29/2019 Assessment & Plan (04/02/2024 9:38 AM EST): Since she has no clinical recurrence and labs are stable for over a year without prednisone I agreed with her to carefully decrease Plaquenil from 1 tablet daily in divided doses alternating with 0.5 tablet daily to 0.5 tablet daily. She remains stable clinically and will get monitoring labs prior to next visit in 4 months -standing orders in [facility]. Continue gentle, regular exercise routine as tolerated. Avoid falls, injuries, overuse and sick contacts. Monitor for recurrence and particularly for signs suggestive of temporal arteritis such as sudden headache, visual abnormalities, jaw or tongue claudication, fevers, unusual fatigue etc when she has to increase prednisone dose to 60 mg daily to prevent visual loss. Keep well-hydrated. Call with questions or problems. Assessment & Plan (06/09/2023 11:00 AM EDT): Since she has no clinical recurrence and labs are stable for over a year without prednisone I agreed with her to carefully decrease Plaquenil from 1 tablet daily in divided doses alternating with 0.5 tablet daily to 0.5 tablet daily. She remains stable clinically and will get monitoring labs prior to next visit in 4 months -standing orders in [facility]. Continue gentle, regular exercise routine as tolerated. Avoid falls, injuries, overuse and sick contacts. Monitor for recurrence and particularly for signs suggestive of temporal arteritis such as sudden headache, visual abnormalities, jaw or tongue claudication, fevers, unusual fatigue etc when she has to increase prednisone dose to 60 mg daily to prevent visual loss. Keep well-hydrated. Call with questions or problems. Assessment & Plan (03/09/2023 7:05 PM EST): Since she has no clinical recurrence and labs are stable for over a year without prednisone I agreed with her to carefully decrease Plaquenil from 1 tablet daily in divided doses alternating with 0.5 tablet daily to 0.5 tablet daily. She remains stable clinically and will get monitoring labs prior to next visit in 3 months -standing orders in [facility]. Continue gentle, regular exercise routine as tolerated. Avoid falls, injuries, overuse and sick contacts. Monitor for recurrence and particularly for signs suggestive of temporal arteritis such as sudden headache, visual abnormalities, jaw or tongue claudication, fevers, unusual fatigue etc when she has to increase prednisone dose to 60 mg daily to prevent visual loss. Keep well-hydrated. Call with questions or problems. Assessment & Plan (09/04/2022 10:58 AM EDT): Since she has no clinical recurrence and labs are stable for over a year without prednisone I agreed with her to carefully decrease Plaquenil from 1.5 tablet daily to 1 tablet daily. She remains stable clinically and will get monitoring labs today. Provided they return normal she can carefully further decrease Plaquenil to alternating dosing 0.5 tablet of 200 mg twice daily every other day with once daily until next visit in 6 months. Get monitoring labs to next visit in 6 months-standing orders in [facility]. Continue gentle, regular exercise routine as tolerated. Avoid falls, injuries, overuse and sick contacts. Monitor for recurrence and particularly for signs suggestive of temporal arteritis such as sudden headache, visual abnormalities, jaw or tongue claudication, fevers, unusual fatigue etc. Keep well-hydrated. Call with questions or problems. Assessment & Plan (03/05/2022 3:25 PM EST): Since she has no clinical recurrence and labs are stable for over a year without prednisone I agree with her to carefully decrease Plaquenil from 1.5 tablet daily to 1 tablet daily. Get monitoring labs to next visit in 6 months-standing orders in [facility]. Continue gentle, regular exercise routine as tolerated. Avoid falls, injuries, overuse and sick contacts. Monitor for recurrence and particularly for signs suggestive of temporal arteritis such as sudden headache, visual abnormalities, jaw or tongue claudication, fevers, unusual fatigue etc. Keep well-hydrated. Call with questions or problems. Assessment & Plan (09/06/2021 12:05 PM EDT): Continue current dose Plaquenil that she is tolerating well.. Get monitoring labs today. Continue gentle, regular exercise routine as tolerated. Avoid falls, injuries, overuse and sick contacts. Keep well-hydrated. Call with questions or problems. Assessment & Plan (04/30/2021 11:27 AM EST): Continue current dose Plaquenil that she is tolerating well.. Get monitoring labs today. Continue gentle, regular exercise routine as tolerated. Avoid falls, injuries, overuse and sick contacts. Keep well-hydrated. Call with questions or problems. Assessment & Plan (02/22/2021 2:57 PM EST): Continue current dose Plaquenil that she is tolerating well.. Get monitoring labs today. Continue gentle, regular exercise routine as tolerated. Avoid falls, injuries, overuse and sick contacts. Keep well-hydrated. Call with questions or problems. Assessment & Plan (10/29/2020 7:47 PM EDT): She is ready to stop prednisone at this point. She is tolerating Plaquenil well. Get monitoring labs today. Get yearly influenza vaccination preferably by mid November 2020. Continue gentle, regular exercise routine as tolerated. Avoid falls, injuries, overuse and sick contacts. Keep well-hydrated. Call with questions or problems. Assessment & Plan (07/29/2020 4:20 PM EDT): I have previously reviewed with Carla chronic, autoimmune mediated nature of the disease, its natural course, need for gentle prednisone taper and if unable to taper off as she reported consider adding steroid sparing medication. She has checked with her instrument room technician that there are any contraindications to start Plaquenil from ophthalmologic point of view. She is tolerating Plaquenil well. Get monitoring labs today. Gently taper prednisone by 1 mg every couple of weeks as tolerated-starting to alternate prednisone 2 mg every other morning with breakfast with prednisone 1 mg every other morning with breakfast since 07/31/2020. Continue gentle, regular exercise routine as tolerated. Avoid falls, injuries, overuse and sick contacts. Keep well-hydrated. Call with questions or problems. Assessment & Plan (06/06/2020 11:53 PM EDT): I reviewed with Carla chronic, autoimmune mediated nature of the disease, its natural course, need for gentle prednisone taper and if unable to taper off as she reported consider adding steroid sparing medication. I previously provided her with pamphlets on Plaquenil and methotrexate and reviewed briefly their mode of action, need for close monitoring and delay of action required for Plaquenil by 3-4 months and for methotrexate 6-8 weeks. She was asked to read the pamphlets, write her questions for discussion. She has checked with her instrument room technician that there are any contraindications to start Plaquenil from ophthalmologic point of view. She reports sulfa allergy-diffuse skin rash that may be a risk factor for developing similar side effects when given Plaquenil. Gently taper prednisone by 1 mg every couple of weeks as tolerated. Continue gentle, regular exercise routine as tolerated. Avoid falls, injuries, overuse and sick contacts. Keep well-hydrated. Call with questions or problems. Assessment & Plan (03/30/2020 9:43 PM EST): I reviewed with Carla chronic, autoimmune mediated nature of the disease, its natural course, need for gentle prednisone taper and if unable to taper off as she reported consider adding steroid sparing medication. I previously provided her with pamphlets on Plaquenil and methotrexate and reviewed briefly their mode of action, need for close monitoring and delay of action required for Plaquenil by 3-4 months and for methotrexate 6-8 weeks. She was asked to read the pamphlets, write her questions for discussion. She has checked with her instrument room technician that there are any contraindications to start Plaquenil from ophthalmologic point of view. She reports sulfa allergy-diffuse skin rash that may be a risk factor for developing similar side effects when given Plaquenil. If no ocular contraindications and she chooses Plaquenil I would start with 0.5 tablet of 200 mg daily for a week or 2 before building up further. I suggested her to consider gentle prednisone tapering when ready from 7.5 mg every morning to alternating dosing 7.5 mg every other morning with 6 mg every other morning. I have written detailed instruction on the separate instruction sheets- see details in instruction section of [facility] with today's date Continue gentle, regular exercise routine as tolerated. Avoid falls, injuries, overuse and sick contacts. Keep well-hydrated. Call with questions or problems. Assessment & Plan (02/10/2020 11:02 AM EST): I reviewed with Carla chronic, autoimmune mediated nature of the disease, its natural course, need for gentle prednisone taper and if unable to taper off as she reported consider adding steroid sparing medication. I previously provided her with pamphlets on Plaquenil and methotrexate and reviewed briefly their mode of action, need for close monitoring and delay of action required for Plaquenil by 3-4 months and for methotrexate 6-8 weeks. She is asked to read the pamphlets, write her questions for discussion at next visit in 1 month as she did not read them yet. She is asked to check with her instrument room technician whom she had seen last week whether there are any contraindications to start Plaquenil from ophthalmologic point of view. She reports sulfa allergy-diffuse skin rash that may be a risk factor for developing similar side effects when given Plaquenil. If no ocular contraindications and she chooses Plaquenil I would start with 0.5 tablet of 200 mg daily for a week or 2 before building up further. I suggested her to consider gentle prednisone tapering when ready from 7.5 mg every morning to alternating dosing 7.5 mg every other morning with 6 mg every other morning. Continue gentle, regular exercise routine as tolerated. Avoid falls, injuries, overuse and sick contacts. Keep well-hydrated. Call with questions or problems. Assessment & Plan (12/29/2019 11:23 PM EST): I reviewed with Carla chronic, autoimmune mediated nature of the disease, its natural course, need for gentle prednisone taper and if unable to taper off as she reported consider adding steroid sparing medication. I provided her with pamphlets on Plaquenil and methotrexate and reviewed briefly their mode of action, need for close monitoring and delay of action required for Plaquenil by 3-4 months and for methotrexate 6-8 weeks. She is asked to read the pamphlets, write her questions for discussion at next visit in 1 month. Continue gentle, regular exercise routine as tolerated. Avoid falls, injuries, overuse and sick contacts. Keep well-hydrated. Call with questions or problems. Other specified glaucoma 12/29/2019 Assessment & Plan (02/10/2020 10:56 AM EST): Continue close follow-up with instrument room technician as scheduled and make sure there are no contraindications to starting Plaquenil. Assessment & Plan (12/29/2019 11:23 PM EST): Continue close follow-up with instrument room technician as scheduled and make sure there are no contraindications to starting Plaquenil. On statin therapy 12/29/2019 Assessment & Plan (04/30/2021 11:28 AM EST): Monitor for muscle tenderness, swelling and weakness Assessment & Plan (10/26/2020 8:55 AM EDT): Monitor for muscle tenderness, swelling and weakness Assessment & Plan (05/29/2020 3:21 PM EDT): Monitor for muscle tenderness, swelling and weakness Assessment & Plan (03/30/2020 9:43 PM EST): Monitor for muscle tenderness, swelling and weakness Assessment & Plan (02/10/2020 10:57 AM EST): Monitor for muscle tenderness, swelling and weakness Assessment & Plan (12/29/2019 11:24 PM EST): Monitor for muscle tenderness, swelling and weakness Seasonal allergies 12/29/2019 Assessment & Plan (12/29/2019 11:25 PM EST): Avoid known allergens. Continue antiallergy medications as prescribed. Palpitations 12/29/2019 Assessment & Plan (12/29/2019 11:27 PM EST): Keep a diary of episodes with modifying factors. I requested baseline EKG to make sure she has no prolonged QT interval. Vitamin D insufficiency 12/29/2019 Assessment & Plan (09/06/2021 12:12 PM EDT): Proper supplementation while on prednisone to keep optimal serum range at 40-45 ng/ml. Assessment & Plan (04/30/2021 11:28 AM EST): Proper supplementation while on prednisone to keep optimal serum range at 40-45 ng/ml. Assessment & Plan (10/26/2020 8:54 AM EDT): Proper supplementation while on prednisone to keep optimal serum range at 40-45 ng/ml. Assessment & Plan (07/26/2020 9:15 AM EDT): Proper supplementation while on prednisone to keep optimal serum range at 40-45 ng/ml. Assessment & Plan (05/29/2020 3:21 PM EDT): Proper supplementation while on prednisone to keep optimal serum range at 40-45 ng/ml. Assessment & Plan (02/10/2020 10:59 AM EST): Proper supplementation while on prednisone to keep optimal serum range at 40-45 ng/ml. Assessment & Plan (12/29/2019 11:19 PM EST): Take 4000 international units of vitamin D daily until the end of April 2020 to bring serum level into optimal range: 40-45 ng/ml. Resolved Problems Problem Noted Date Diagnosed Date Resolved Date Other osteoporosis with curr ent pathological fracture, other site, sequela 03/09/2023 03/09/2023 Encounter for monitoring alendronate therapy 06/06/2023 Assessment & Plan (03/07/2023 10:33 AM EST): I have reviewed with Carla details of proper weekly administration and need for proper hydration with regular checkups every 3-4 months-standing orders in [facility]. Assessment & Plan (09/04/2022 10:44 AM EDT): I have reviewed with Carla details of proper weekly administration and need for proper hydration with regular checkups every 3-4 months-standing orders in [facility]. Assessment & Plan (03/04/2022 11:35 AM EST): I have reviewed with Carla details of proper weekly administration and need for proper hydration with regular checkups every 3-4 months-standing orders in [facility]. Assessment & Plan (09/06/2021 12:05 PM EDT): I have reviewed with Carla details of proper weekly administration and need for proper hydration with regular checkups every 3-4 months-standing orders in [facility]. Assessment & Plan (04/30/2021 11:27 AM EST): I have reviewed with Carla details of proper weekly administration and need for proper hydration with regular checkups every 3-4 months-standing orders in [facility]. Assessment & Plan (02/22/2021 3:00 PM EST): I have reviewed with Carla details of proper weekly administration and need for proper hydration with regular checkups every 3-4 months-standing orders in [facility]. 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 Daily calcium and vitamin D supplementation. Regular weightbearing exercises. Fall prevention strategies. Monitor for multiple side effects including but not limited to osteonecrosis of hip or knee, mood swings, increased intraocular and systemic pressure, diabetes, osteoporosis, fluid retention, increased appetite, risk of infection, bruising, hair thinning etc. Assessment & Plan (07/26/2020 9:16 AM EDT): Gently taper as tolerated. Daily calcium and vitamin D supplementation. Regular weightbearing exercises. Fall prevention strategies. Monitor for multiple side effects including but not limited to osteonecrosis of hip or knee, mood swings, increased intraocular and systemic pressure, diabetes, osteoporosis, fluid retention, increased appetite, risk of infection, bruising, hair thinning etc. Assessment & Plan (05/29/2020 3:21 PM EDT): Gently taper as tolerated. Daily calcium and vitamin D supplementation. Regular weightbearing exercises. Fall prevention strategies. Monitor for multiple side effects including but not limited to osteonecrosis of hip or knee, mood swings, increased intraocular and systemic pressure, diabetes, osteoporosis, fluid retention, increased appetite, risk of infection, bruising, hair thinning etc. Assessment & Plan (03/27/2020 2:54 PM EST): Gently taper as tolerated. Daily calcium and vitamin D supplementation. Regular weightbearing exercises. Fall prevention strategies. Monitor for multiple side effects including but not limited to osteonecrosis of hip or knee, mood swings, increased intraocular and systemic pressure, diabetes, osteoporosis, fluid retention, increased appetite, risk of infection, bruising, hair thinning etc. Assessment & Plan (02/10/2020 10:58 AM EST): Gently taper as tolerated. Daily calcium and vitamin D supplementation. Regular weightbearing exercises. Fall prevention strategies. Monitor for multiple side effects including but not limited to osteonecrosis of hip or knee, mood swings, increased intraocular and systemic pressure, diabetes, osteoporosis, fluid retention, increased appetite, risk of infection, bruising, hair thinning etc. Osteopenia of multiple sites 12/29/2019 03/09/2023 Assessment & Plan (09/04/2022 10:59 AM EDT): Proper calcium and vitamin D supplementation. Fall and fracture prevention strategies. Due to diffuse osteopenia that has progressed within the last couple of years I have offered her bone preserving therapy with Fosamax 70 mg weekly-that she tolerates every Friday morning. She is due for interval BMD next week at [facility]. Assessment & Plan (03/05/2022 3:27 PM EST): Proper calcium and vitamin D supplementation. Fall and fracture prevention strategies. Due to diffuse osteopenia that has progressed within the last couple of years I have offered her bone preserving therapy with Fosamax 70 mg weekly-that she tolerates every Friday morning. She is due for interval BMD after 06/07/2022 at [facility]. Assessment & Plan (09/06/2021 12:06 PM EDT): Proper calcium and vitamin D supplementation. Fall and fracture prevention strategies. Due to diffuse osteopenia that has progressed within the last couple of years I have offered her bone preserving therapy with Fosamax 70 mg weekly-that she tolerates every Friday morning. Assessment & Plan (02/22/2021 2:58 PM EST): Proper calcium and vitamin D supplementation. Fall and fracture prevention strategies. Due to diffuse osteopenia that has progressed within the last couple of years I have offered her bone preserving therapy with Fosamax 70 mg weekly-that she tolerates every Friday morning. Assessment & Plan (10/26/2020 8:55 AM EDT): Proper calcium and vitamin D supplementation. Fall and fracture prevention strategies. Due to diffuse osteopenia that has progressed within the last couple of years I am offering her bone preserving therapy with Fosamax 70 mg weekly-pamphlet provided to read and write questions for next appointment in 3 months. Assessment & Plan (07/29/2020 4:23 PM EDT): Proper calcium and vitamin D supplementation. Fall and fracture prevention strategies. Due to diffuse osteopenia that has progressed within the last couple of years I am offering her bone preserving therapy with Fosamax 70 mg weekly-pamphlet provided to read and write questions for next appointment in 3 months. Assessment & Plan (05/29/2020 3:21 PM EDT): Proper calcium and vitamin D supplementation. Fall and fracture prevention strategies. Copy of last BMD requested for records and review. Assessment & Plan (03/27/2020 2:54 PM EST): Proper calcium and vitamin D supplementation. Fall and fracture prevention strategies. Copy of last BMD requested for records and review. Assessment & Plan (02/10/2020 10:57 AM EST): Proper calcium and vitamin D supplementation. Fall and fracture prevention strategies. Copy of last BMD requested for records and review. Assessment & Plan (12/29/2019 11:24 PM EST): Proper calcium and vitamin D supplementation. Fall and fracture prevention strategies. Copy of last BMD requested for records and review. Aspirin long-term use 12/29/20192021 Assessment & Plan (10/26/2020 8:57 AM EDT): Avoid falls, injuries and cuts. Monitor for excessive bruising and bleeding. Assessment & Plan (07/26/2020 9:16 AM EDT): Avoid falls, injuries and cuts. Monitor for excessive bruising and bleeding. Assessment & Plan (05/29/2020 3:22 PM EDT): Avoid falls, injuries and cuts. Monitor for excessive bruising and bleeding. Assessment & Plan (03/27/2020 2:54 PM EST): Avoid falls, injuries and cuts. Monitor for excessive bruising and bleeding. Assessment & Plan (02/10/2020 10:57 AM EST): Avoid falls, injuries and cuts. Monitor for excessive bruising and bleeding. Assessment & Plan (12/29/2019 11:24 PM EST): Avoid falls, injuries and cuts. Monitor for excessive bruising and bleeding. Immunizations Immunization Administration Dates Next Due COVID-19 (Pre-12/16) Pfizer Vaccine, mRNA, PF 05/12/2020,04/20/2020 Influenza High-Dose Quadriva lent Preservative Free IM 11/19/2022,12/12/2021 Influenza High-Dose Trivalen t Preservative Free IM 12/02/2018,12/03/2017,11/05/2017 Influenza Quadrivalent w/ Preservative IM 2016,01/09/2016 Influenza Recombinant Jonathan valent Preservative Free IM 11/30/2019 Influenza, Unspecified Formulation 12/08/2020 Pneumococcal conjugate PCV13 12/02/2018 RSV Vaccine (monovalent, adjuvanted) 02/09/2023 Tdap 10/17/2021 Zoster recombinant 12/11/2017,06/11/2017 Family History Medical History Relation Comments Alzheimer's disease Father Cardiovascular disease Mother Coronary artery disease Mother Hypertension Mother Relation Status Comments Father Mother Alive Social History Tobacco Use Types Packs/Day Years Used Date Smoking Tobacco: Never Smokeless Tobacco: Never Education Answer Date Recorded Are you interested in more education? Not on daysi e 06/21/2022 Are you concerned about learning? Not on file 06/21/2022 No 06/21/2022 No 06/21/2022 Digital Access Answer Date Recorded No 07/20/2022 No 07/20/2022 Reliable internet access at home? Not on file 07/20/2022 Device with a working camera? Not on file Comments Unknown Sex and Gender Information Value Date Recorded Sex Assigned at Female 03/25/2020 3:24 PM EST Legal Sex Female 2:06 PM EDT Gender Identity Female 03/25/2020 3:24 PM EST Sexual Orientation Not on file Last Filed Vital Signs Vital Sign Reading Time Taken Comments Blood Pressure 120/74 04/02/2024 8:57 AM EST Pulse 69 04/02/2024 8:57 AM EST Temperature 37 C (98.6 F) 04/30/2021 10:59 AM EST Respiratory Rate - - Oxygen Saturation 98% 04/02/2024 8:57 AM EST Inhaled Oxygen Concentration - - Weight 57.6 kg (127 lb) 04/02/2024 8:57 AM EST Height 165.1 cm (5' 5 ) 04/02/2024 8:57 AM EST Body Mass Index 21.13 04/02/2024 8:57 AM EST Plan of Treatment Upcoming Encounters Date Type Department Care Team (Late st Contact Info) Description 09/30/2024 9:00 AM EDT Nurse Only [facility] [address] [place] [address] 04/01/2025 9:00 AM EST Office Visit [facility] [address] [place] [address] Ronit King MD [address] [place] [address], [address] [place] [address] [email or web address] Health Maintenance Due Date Last Done Comments LIPID PANEL 1952 DEPRESSION SCREENING 1964 HEPATITIS C SCREENING 1970 MAMMOGRAM 1992 COLOGUARD 1997 COLONOSCOPY 1997 COLORECTAL CANCER SCREENING 1997 FIT TEST 1997 FOBT 1997 SIGMOIDOSCOPY 1997 VIRTUAL COLONOSCOPY 1997 PNEUMOCOCCAL VACCINES (50+ years) (2 of 2 - PPSV23) 12/03/2019 12/02/2018 COVID-19 VACCINE ( season) 2024 11/24/2023, 11/28/2022, 12/03/2021, Additional history exists Adult Td,Tdap Booster 10/18/2031 10/17/2021 ZOSTER VACCINES Completed 12/11/2017, 06/11/2017 RSV VACCINE Completed 02/09/2023 OSTEOPOROSIS SCREENING INITIAL (ONE-TIME) Completed 04/02/2024, 10/03/2022 SMOKING STATUS SCREENING (Once After 26 Yrs) Completed 04/02/2024 HEPATITIS A VACCINES Aged Out No long er eligible based on patient's age to complete this topic HIB VACCINES Aged Out No longer eligi ble based on patient's age to complete this topic MENINGOCOCCAL VACCINES (ACWY) Aged Out No longer eligible based on patient's age to complete this topic MENINGOCOCCAL VACCINES (B) Aged Out N o longer eligible based on patient's age to complete this topic Medical Devices Not on file Procedures Procedure Name Priority Date/Time Associated Diagnosis Comments BD DXA SCREENING Routine 04/02/2024 9:30 AM EST Age-related osteoporosis without current pathological fracture Encounter for monitoring denosumab therapy from Last 3 Months or Most Recently Relevant to Health Maintenance Results * DEXA SCAN (10/03/2022) Historical Provider HEALTH MAINTENANCE Final Result from Last 3 Months or Most Recently Relevant to Health Maintenance [place] [address] [place] [address] MEDICARE PPO BLUE REPLACEMENT [facility] MEDICARE PPO BLUE [place]PLACEMENT [address] [place] [address] MEDICARE PPO BLUE [place] [address] [place] [address] MEDICARE PPO BLUE [place] [address] [place] [address] MEDICARE PPO BLUE [place] [address] [place] [address] MEDICARE [address]PO [address] [place] [address] MEDICARE [address] [place] [address] MED[address] [place] [place] [address] MEDICARE PPO BLUE REPLACEMENT Care Teams Nurse Monitoring Relationship Specialty Start Date End Date Zari Dozier MD [address] [place] [address] [place] [address] PCP - General Internal Medicine 11/11/19 Additional Source Comments The information contained in this document represents components of the legal health record. It is not the complete legal health record.[facility]
--- NOTE | 2024-10-06 14:27 | HO.ANESPROP2 ---
Documented by User: Jessica López NP 10/06/24 14:31 HPI - Anesthesia Eval Consult details Narrative: 74yo F for Colonoscopy PMR on immunolgic PMFSH Active Problems Active Problems: All Active Problems Cystitis (Acute) Urinary tract infection symptoms (Acute) Chronic diarrhea (Acute) Diarrhea (Acute) Right thyroid nodule (Acute) Osteopenia of multiple sites (Acute) Postmenopause (Acute) Bharath's thyroiditis (Acute) Nontoxic multinodular goiter (Acute) Essential hypertension (Acute) Dyslipidemia (Acute) Past Medical History Medical History Polymyalgia rheumatica Osteoporosis Cystitis Urinary tract infection symptoms Chronic diarrhea Right thyroid nodule Osteopenia of multiple sites Postmenopause Bharath's thyroiditis Nontoxic multinodular goiter PMR (polymyalgia rheumatica) Essential hypertension Dyslipidemia Family History Family History Father Alzheimer's disease Mother HTN (hypertension) CAD (coronary artery disease) Brother CAD (coronary artery disease) Sister No problems noted. Son No problems noted. Son No problems noted. Surgical History Surgical History Hx of colonoscopy History of thyroidectomy History of tonsillectomy Social History Social History [facility] Are you a primary client care manager to a significant other at home: No Do you presently have visiting nurse or other home services: No Alcohol intake: current Patient Tobacco Use Status: Never used Tobacco e-Cigarette/Vaping Use: Never Used Second Hand Smoke Exposure: No Have you been hit, kicked, punched, or otherwise hurt by someone within the past year? If so, by whom?: No Are you DNR?: No Advance Directives: No Advance Directives Information Provided: Yes Poor oral hygiene: No Current occupational status: retired Cognitive needs: No Hearing needs: No Vision needs: Yes Meds Allergies Allergy/AdvReac Type Severity Reaction Status Date / Time shellfish derived (SHELLFISH Allergy Severe Nausea, Verified 10/08/24 09:27 DERIVED) vomiting, Sever GI upset Sulfa (Sulfonamide Allergy Intermediate RASH, Verified 10/08/24 09:27 Antibiotics) (SULFA hives/rash (SULFONAMIDE ANTIBIOTICS)) TB test Allergy Unknown localized Uncoded 10/08/24 09:27 swelling, throat swelling Home Medications ?Medication ?Instructions ?Recorded ?Confirmed ?Last Taken ?Type cholecalciferol (vitamin D3) 50 50 mcg PO DAILY 02/14/20 10/07/24 Unknown History mcg (2,000 unit) capsule latanoprost 0.005 % eye drops 1 drp ophthalmic (eye) BEDTIME 02/14/20 10/08/24 Unknown History denosumab 60 mg/mL subcutaneous 60 mg subcut [id number] 04/03/23 10/07/24 Unknown History syringe (Prolia) atorvastatin 20 mg tablet 20 mg PO DAILY 10/07/24 10/07/24 Unknown History dicyclomine 10 mg capsule 20 mg PO TID PRN abdominal pain 10/07/24 10/07/24 Unknown History hydroxychloroquine 200 mg tablet 300 mg PO DAILY 10/07/24 10/07/24 Unknown History (Plaquenil) Exam Pertinent Lab Results Pertinent Lab Results: Laboratory Tests 05/07/24 08/17/24 06:45 07:18 WBC 6.9 Hgb 13.2 Hct 39.7 Plt Count 283 D Sodium 143 Potassium 4.7 Chloride 108 Carbon Dioxide 28 BUN 12 Creatinine 0.82 Assessment and Plan Assessment Anesthesia Assessment: Chart Reviewed Documented by User: Lili Phoenix MD 10/08/24 09:30 [facility] Past Medical History Medical History Polymyalgia rheumatica Osteoporosis Cystitis Urinary tract infection symptoms Chronic diarrhea Right thyroid nodule Osteopenia of multiple sites Postmenopause Bharath's thyroiditis Nontoxic multinodular goiter PMR (polymyalgia rheumatica) Essential hypertension Dyslipidemia Family History Family History Father Alzheimer's disease Mother HTN (hypertension) CAD (coronary artery disease) Brother CAD (coronary artery disease) Sister No problems noted. Son No problems noted. Son No problems noted. Family history of problems with anesthesia: No Surgical History Surgical History Hx of colonoscopy History of thyroidectomy History of tonsillectomy History of Problems with Anesthesia: No Social History Social History Housing: [facility] Are you a primary client care manager to a significant other at home: No Do you presently have visiting nurse or other home services: No Alcohol intake: current Patient Tobacco Use Status: Never used Tobacco e-Cigarette/Vaping Use: Never Used Second Hand Smoke Exposure: No Have you been hit, kicked, punched, or otherwise hurt by someone within the past year? If so, by whom?: No Are you DNR?: No Advance Directives: No Advance Directives Information Provided: Yes Poor oral hygiene: No Current occupational status: retired Cognitive needs: No Hearing needs: No Vision needs: Yes Meds Allergies Allergy/AdvReac Type Severity Reaction Status Date / Time shellfish derived (SHELLFISH Allergy Severe Nausea, Verified 10/08/24 09:27 DERIVED) vomiting, Sever GI upset Sulfa (Sulfonamide Allergy Intermediate RASH, Verified 10/08/24 09:27 Antibiotics) (SULFA hives/rash (SULFONAMIDE ANTIBIOTICS)) TB test Allergy Unknown localized Uncoded 10/08/24 09:27 swelling, throat swelling Home Medications ?Medication ?Instructions ?Recorded ?Confirmed ?Last Taken ?Type cholecalciferol (vitamin D3) 50 50 mcg PO DAILY 02/14/20 10/07/24 Unknown History mcg (2,000 unit) capsule latanoprost 0.005 % eye drops 1 drp ophthalmic (eye) BEDTIME 02/14/20 10/08/24 Unknown History denosumab 60 mg/mL subcutaneous 60 mg subcut [id number] 04/03/23 10/07/24 Unknown History syringe (Prolia) atorvastatin 20 mg tablet 20 mg PO DAILY 10/07/24 10/07/24 Unknown History dicyclomine 10 mg capsule 20 mg PO TID PRN abdominal pain 10/07/24 10/07/24 Unknown History hydroxychloroquine 200 mg tablet 300 mg PO DAILY 10/07/24 10/07/24 Unknown History (Plaquenil) Exam Airway Mallampati Class: II TM Dist: >3cm Neck ROM: Full Heart: rrr Lungs: cta Assessment and Plan Assessment Anesthesia Assessment: Anesthesia Plan Discussed Final Anesthetic Review Family History of Problems with Anesthesia: No History of Problems with Anesthesia: No NPO: Yes ASA Class: III Final Preanesthetic Review: No Changes in Pt Med Stat, Meds/Allgs Chart Reviewed, Consent Obtained/Reviewed and Anes Risks/Benef Reviewed Patient Risk: Intermediate Procedure Risk: Low Anesthetic Plan Anesthetic Plan: MAC: Disposition: Standard PACU
[2024-10-07 07:14] VITALS: BMI 19.3
[2024-10-08 09:12] VITALS: BMI 19.6
[2024-10-08] MEDS: Lactated Ringers 1,000 ML 100 ML IVCONT (09:25)
[2024-10-08 09:26] VITALS: BP 114/72; PULSE 82; RESP 18; TEMP 36.7; O2SAT 99
[2024-10-08 10:30] VITALS: BP 101/60; PULSE 60; RESP 12; TEMP 36.1; O2SAT 97
--- NOTE | 2024-10-08 10:33 | PM.OP ---
Brief Operative Note Date of Service: 10/08/24 Pre-op diagnosis: Screening Post-op diagnosis: other (Diverticulosis, Internal hemorrhoids) Procedure: Colonoscopy to the cecum and TI Surgeon: Andrea Montejo MD Anesthesia: MAC Was an Accounts Payable Assistant used for this Procedure?: No Estimated blood loss (mL): 0 Pathology: none sent Condition: stable Disposition: PACU
[2024-10-08 10:40] VITALS: BP 122/74; PULSE 72; RESP 16; TEMP 36.1; O2SAT 100
--- NOTE | 2024-10-08 10:59 | OP_ITS ---
DATE OF SERVICE: 10/08/2024 SURGEON: Andrea Montejo MD INDICATIONS: The patient presents for evaluation of colorectal cancer screening. Full consent is obtained from her for this, including risks of bleeding and perforation. PREOPERATIVE DIAGNOSIS: Colorectal cancer screening. POSTOPERATIVE DIAGNOSIS: Colorectal cancer screening, diverticulosis, and internal hemorrhoids. PROCEDURE PERFORMED: Colonoscopy to cecum and terminal ileum. ESTIMATED BLOOD LOSS: COMPLICATIONS: ANESTHESIA: Monitored anesthesia care. ASSISTANTS: SPECIMENS: DESCRIPTION OF PROCEDURE: The patient was placed in the left lateral decubitus position. The digital rectal exam revealed no abnormalities. The Olympus video pediatric colonoscope was entered into the rectum and advanced easily to the cecum. Once in the cecum, I did identify normal-appearing cecal pouch with appendiceal orifice and a normal-appearing ileocecal valve. The terminal ileum was cannulated and appeared normal. The scope was withdrawn back in the colon. The entire cecum appeared normal Scope was slowly withdrawn, assessing all mucosal surfaces carefully. Preparation was excellent. I did not visualize any sign of polyps, colitis, or angiodysplasia. There was a mild amount of sigmoid diverticulosis. In the rectum, scope was retroflexed, visualizing some internal hemorrhoids which appeared to be somewhat inflamed. There was no sign of any polyps or other mucosal abnormalities. The scope was straightened and withdrawn from the patient. She tolerated the procedure well and was returned to the recovery area in stable condition. IMPRESSION: 1. Diverticulosis 2. Internal hemorrhoids. PLAN: Given today's negative exam, 2 previously negative colonoscopies, and her age, I do not think she will need any further screening colonoscopies. She will see me on a p.r.n. basis. MD MACK Santiago/LEEROY / [id number] MTDD
== END 2024-10-08 10:56 | disposition home or self-care (01) ==
PROVIDERS: PCP Internal Medicine; Visit Provider Internal Medicine
PROC: 0DJD8ZZ Inspection of Lower Intestinal Tract, Via Natural or Artificial Opening Endoscopic (ICD-10-PCS; CPT 45378; principal; 2024-10-08 10:00)
DX: Z12.11 Encounter for screening for malignant neoplasm of colon (principal); K57.30 Diverticulosis of large intestine without perforation or abscess without bleeding; K64.8 Other hemorrhoids; I10 Essential (primary) hypertension; E78.5 Hyperlipidemia, unspecified; Z79.02 Long term (current) use of antithrombotics/antiplatelets; Z79.899 Other long term (current) drug therapy
CPT/HCPCS: G0121; J2003; J2704

== ENCOUNTER 2024-10-11 09:13 | Outpatient (AMB) | payer MEDICARE, SELFPAY ==
[2024-10-11 09:16] VITALS: BP 130/78; PULSE 60; O2SAT 98; BMI 19.8
--- NOTE | 2024-10-11 09:16 | A.OFFVIS_ITS ---
Vital Signs 3 10/11/24 09:16 Height 5 ft 5 in Weight 119 lb 4.321 oz BMI 19.8 BP 130/78 Blood Pressure Location Lt brachial Position Sitting Pulse 60 Pulse Source Pulse Oximeter Pulse Oximetry (%) 98 Oxygen Delivery Method Room Air Intake Visit Reasons: MNG Intake Note: Patient present today for MNG office visit. Reproduction Production Manager Required: No Accompanied by: Self / Same As Patient Allergies shellfish derived (SHELLFISH DERIVED) Allergy (Severe, Verified 10/11/24 09:19) Nausea, vomiting, Sever GI upset Sulfa (Sulfonamide Antibiotics) (SULFA (SULFONAMIDE ANTIBIOTICS)) Allergy (Intermediate, Verified 10/11/24 09:19) RASH, hives/rash TB test Allergy (Unknown, Uncoded 10/11/24 09:19) localized swelling, throat swelling Medication List - Last Reconciled 10/11/24 by Gypsy Shane MD amlodipine 5 mg PO DAILY atorvastatin 20 mg PO DAILY cholecalciferol (vitamin D3) 50 mcg PO DAILY denosumab (Prolia) 60 mg subcut [id number] hydroxychloroquine (Plaquenil) 300 mg PO DAILY latanoprost 0.005% 1 drp ophthalmic (eye) BEDTIME HPI Comments Details: 73 YO Female with a PMHx of a NTMNG who is seen in F/U Prior HPI She had a prior L hemithyroidectomy for unknown reasons in 1999. She reports that the surgical pathology was benign. She has been followed yearly for multiple nodules within her R lobe. 08/01/2021 she underwent an IR guided FNA biopsy of her RLP 1.8 cm thyroid nodule with benign cytology. June 2022, ultrasound showed stable size of the right superior subcentimeter nodules. The dominant right inferior nodule showed increase in size from 1.6 cm in the largest dimension to 1.8 cm. Volume also went up from 1.5 mL to 2.2 mL. Decision was made to repeat ultrasound in 1 year, she had a repeat ultrasound in July 2023 which showed stable size of the right lower pole dominant nodule over the past year.Size: 2.3 x 1.4 x 1.8 cm, volume 2.9 mL. Previously: 1.9 x 1.3 x 1.8 cm, volume 2.3 mL on 07/23/2022 and 1.6 x 1.1 x 1.6 cm, volume 1.5 mL on 10/31/2020. Denies any compressive symptoms. No personal history of head or neck radiation. Denies any family history of thyroid disease or thyroid cancer. She denies any symptoms of hyper or hypothyroidism today. She reports feeling well and has no complaints. Interval history 08/17/24, normal TSH and free T4 Ultrasound thyroid 07/26/2024, I reviewed the images myself which showed a right superior subcentimeter solid isoechoic TR 3 nodule which is new, another right superior 0.7 cm spongiform nodule that remained stable in size. The right lower pole dominant 2.1 cm nodule is solid hypoechoic TR 4 category, remained stable in size. Physical exam General: sitting comfortably in no acute distress HEENT: normocephalic/atraumatic, moist oral mucosa Neck: supple, palpable 2 cm right sided thyroid nodule Cardiac: normal heart sounds Pulm: normal breath sounds B/L, no added breath sounds Abd: not distended, no tenderness Extremities: no edema, no signs of myxedema Neuro: AAO x3, Speech: normal, no facial droop, moving all 4 extremities Laboratory Tests 09/27/23 07:24 TSH 1.23 Free T4 1.14 Laboratory Tests 08/17/24 07:18 TSH 1.31 Free T4 1.18 Imaging EXAMINATION: US THYROID 07/26/24 HISTORY: E04.1 - Nontoxic single thyroid nodule TECHNIQUE: Real-time grayscale ultrasound imaging was performed and images were reviewed. COMPARISON: Comparison is made with the prior examination dated 08/07/2023. FINDINGS: SIZE: The right thyroid lobe measures 6.0 x 2.6 x 2.3 cm. The left thyroid lobe is surgically absent. The isthmus measures 9 mm. FLOW: Flow to the gland is increased. ECHOGENICITY: The echotexture of the gland is heterogeneous. NODULES: Again seen are multiple right thyroid nodules as described below: Nodule #: 1 Location: Right upper pole measuring 6 x 3 x 5 mm, not seen previously. Shape: Wider than tall (0 points) Margins: Smooth (0 points) Echotexture: Isoechoic (1 point) Composition: Solid (2 points) Calcifications: None (0 points) Total points: 3 TIRADS: TR3: Mildly suspicious. Nodule #: 2 Location: Right upper pole measuring 7 x 4 x 7 mm (previously 6 x 3 x 5 mm). Shape: Wider than tall (0 points) Margins: Smooth (0 points) Echotexture: n/a Composition: Spongiform (0 points) Calcifications: None (0 points) Total points: 0 TIRADS: TR1: Benign Nodule #: 3 Location: Right lower pole measuring 2.1 x 1.3 x 2.0 cm (previously 2.3 x 1.4 x 1.8 cm). Shape: Wider than tall (0 points) Margins: Smooth (0 points) Echotexture: Hypoechoic (2 points) Composition: Solid (2 points) Calcifications: None (0 points) Total points: 4 TIRADS: TR4: Moderately suspicious. US/US thyroid IMPRESSION: Status post left thyroidectomy. Multiple right-sided nodules are again noted. The dominant nodule at the lower pole of the right thyroid lobe is unchanged in size. Continued follow-up is recommended. ACR TI-RADS Guidelines US THYROID 07/2023 CLINICAL INFORMATION: Nontoxic multinodular goiter. Left thyroidectomy in 1999. Biopsy right lower pole thyroid nodule in July 2021 per history provided. COMPARISON: Thyroid ultrasound 07/23/2022 and 10/31/2020. Ultrasound-guided thyroid biopsy 08/01/2021. TECHNIQUE: Linear transducer grayscale and color Doppler examination with attention to the region of the thyroid. FINDINGS: SIZE: Measurements of the solitary right lobe and nodules are given in sagittal, anteroposterior and transverse dimensions respectively. Right Thyroid Lobe: 6.4 x 2.5 x 2.4 cm, volume 19.8 mL. Previously 5.9 x 2.3 x 2.3 cm, volume 16.3 mL. Parenchyma: The gland echotexture is heterogeneous. Thyroid vascularity is increased. Left Thyroid Lobe: Surgically absent. Isthmus: 0.7 cm in maximum AP dimension. Previously 0.8 cm. Estimated total number of nodules greater than or equal to 1 cm: 1. Manager Collection nodules are described as follows: 1. Location: Right upper pole. Size: 0.6 x 0.3 x 0.5 cm, volume 0.05 mL. Previously: 0.6 x 0.3 x 0.6 cm, volume 0.06 mL. Nodule characteristics: Composition: Spongiform (0). ACR TI-RADS total points: 0. Previous: 0. ACR TI-RADS category: 1. Previous: 1. Significant change in size (>/= 20% in 2 dimensions and minimal increase of 2 mm or 50% or greater increase in volume): No Change in features: No Change in ACR TI-RADS risk category: No 2. Location: Right upper pole. Size: 0.6 x 0.3 x 0.5 cm, volume 0.05 mL. Previously: 0.6 x 0.3 x 0.5 cm, volume 0.05 mL. Nodule characteristics: Composition: Spongiform (0). ACR TI-RADS total points: 0. Previous: 2. ACR TI-RADS category: 1. Previous: 2. Significant change in size (>/= 20% in 2 dimensions and minimal increase of 2 mm or 50% or greater increase in volume): No Change in features: Yes Change in ACR TI-RADS risk category: Yes 3. Location: Right lower pole. Size: 2.3 x 1.4 x 1.8 cm, volume 2.9 mL. Previously: 1.9 x 1.3 x 1.8 cm, volume 2.3 mL on 07/23/2022 and 1.6 x 1.1 x 1.6 cm, volume 1.5 mL on 10/31/2020. Nodule characteristics: Composition: Solid (2). Echogenicity: Hypoechoic (2). Shape: Not taller than wide (0). Margins: Smooth (0). Echogenic Foci: Punctate echogenic foci (3). ACR TI-RADS total points: 7. Previous: 6. ACR TI-RADS category: 5. Previous: 4. Significant change in size (>/= 20% in 2 dimensions and minimal increase of 2 mm or 50% or greater increase in volume): Yes Change in features: Yes Change in ACR TI-RADS risk category: Yes LEFT THYROIDECTOMY BED: No focal mass appreciated in the left thyroid bed. Left thyroid lobe is surgically absent. NODES: No lymphadenopathy is seen in the tissue surrounding the thyroid gland. US/US thyroid IMPRESSION: Right lower pole TR5 thyroid nodule measures 2.3 x 1.4 x 1.8 cm, volume 2.9 mL. This previously measured 1.9 x 1.3 x 1.8 cm, volume 2.3 mL on 07/23/2022 and 1.6 x 1.1 x 1.6 cm, volume 1.5 mL on 10/31/2020. Correlation with prior biopsy results and clinical exam recommended to determine further management including possible biopsy. . Thyroid US: 07/23/22 Right Thyroid Lobe: 5.9 x 2.3 x 2.3 cm, volume 16.3 mL. Previously 6.5 x 2.3 x 2.0 cm, volume 15.6 mL. Parenchyma: The gland echotexture is heterogeneous. Thyroid vascularity is increased. Left Thyroid Lobe: Surgically absent. Isthmus: 0.8 cm in maximum AP dimension. Previously 0.9 cm. Estimated total number of nodules greater than or equal to 1 cm: 1. Manager Collection nodules are described as follows: 1.? Location: Right superior. ?? ? Size: 0.6 x 0.3 x 0.5 cm, volume 0.05 mL. ?? ? Previously: New since the previous study. ?? ? Nodule characteristics: ?? ? Composition: Mixed cystic and solid (1). ?? ? Echogenicity: Isoechoic (1). ?? ? Shape: Not taller than wide (0). ?? ? Margins: Smooth (0). ?? ? Echogenic Foci: None (0).? ACR TI-RADS total points: 2 ?? ? ACR TI-RADS category: 2 2.? Location: Right superior. ?? ? Size: 0.6 x 0.3 x 0.6 cm, volume 0.06 mL. ?? ? Previously: 0.6 x 0.3 x 0.6 cm, volume 0.06 mL. ?? ? Nodule characteristics: ?? ? Composition: Spongiform (0). ?? ? Echogenicity: Anechoic (0). ?? ? Shape: Not taller than wide (0). ?? ? Margins: Smooth (0). ?? ? Echogenic Foci: None (0).? ACR TI-RADS total points: 0 Previous: 0 ?? ? ACR TI-RADS category: 1 Previous: 1 ? Significant change in size (>/= 20% in 2 dimensions and minimal increase of 2 mm or 50% or greater increase in volume): No ?? ? Change in features: No ?? ? Change in ACR TI-RADS risk category: No 3.? Location: Right superior. ?? ? Size: 0.6 x 0.3 x 0.5 cm, volume 0.05 mL. ?? ? Previously: 0.3 x 0.2 x 0.4 cm, volume 0.02 mL. ?? ? Nodule characteristics: ?? ? Composition: Solid (2). ?? ? Echogenicity: Isoechoic (1). ?? ? Shape: Not taller than wide (0). ?? ? Margins: Smooth (0). ?? ? Echogenic Foci: None (0).? ACR TI-RADS total points: 3 Previous: 3 ?? ? ACR TI-RADS category: 3 Previous: 3 ? Significant change in size (>/= 20% in 2 dimensions and minimal increase of 2 mm or 50% or greater increase in volume): No ?? ? Change in features: No ?? ? Change in ACR TI-RADS risk category: No 4.? Location: Right inferior. ?? ? Size: 1.9 x 1.3 x 1.8 cm, volume 2.27 mL. ?? ? Previously: 1.6 x 1.1 x 1.6 cm, volume 1.50 mL. ?? ? Nodule characteristics: ?? ? Composition: Solid (2). ?? ? Echogenicity: Hypoechoic (2). ?? ? Shape: Not taller than wide (0). ?? ? Margins: Irregular (2). ?? ? Echogenic Foci: None (0).? ACR TI-RADS total points: 6 Previous: 5 ?? ? ACR TI-RADS category: 4 Previous: 4 ? Significant change in size (>/= 20% in 2 dimensions and minimal increase of 2 mm or 50% or greater increase in volume): Yes ?? ? Change in features: No ?? ? Change in ACR TI-RADS risk category: No NODES: No lymphadenopathy is seen in the tissue surrounding the thyroid gland. Labs: Laboratory Tests 08/28/21 13:12 TSH 1.08 Free T4 1.14 PFSH Medical History Polymyalgia rheumatica Osteoporosis Cystitis Urinary tract infection symptoms Chronic diarrhea Right thyroid nodule Osteopenia of multiple sites Postmenopause Bharath's thyroiditis Nontoxic multinodular goiter PMR (polymyalgia rheumatica) Essential hypertension Dyslipidemia Surgical History Hx of colonoscopy History of thyroidectomy History of tonsillectomy Family History Father Alzheimer's disease Mother HTN (hypertension) CAD (coronary artery disease) Brother CAD (coronary artery disease) Sister No problems noted. Son No problems noted. Son No problems noted. Social History [facility] Are you a primary home health care respiratory therapist to a significant other at home: No Do you presently have visiting nurse or other home services: No Alcohol intake: current Patient Tobacco Use Status: Never used Tobacco e-Cigarette/Vaping Use: Never Used Second Hand Smoke Exposure: No Current occupational status: retired Cognitive needs: No Hearing needs: No Vision needs: Yes Physical Exam Vital Signs: Last Vital Signs Pulse 60 10/11/24 09:16 BP 130/78 10/11/24 09:16 Pulse Ox 98 10/11/24 09:16 Oxygen Delivery Method Room Air 10/11/24 09:16 BMI result Body Mass Index 19.8 Assessment & Plan Assessment & Plan (1) Right thyroid nodule: Code(s): E04.1 - Nontoxic single thyroid nodule Category: Medical Plan: 73-year-old female coming in today for follow up of multinodular goiter. She had a prior L hemithyroidectomy for unknown reasons in 1999. She reports that the surgical pathology was benign. She has been followed yearly for multiple nodules within her R lobe. 08/01/2021 she underwent an IR guided FNA biopsy of her RLP 1.8 cm thyroid nodule with benign cytology. June 2022, ultrasound showed stable size of the right superior subcentimeter nodules. The dominant right inferior nodule showed increase in size from 1.6 cm in the largest dimension to 1.8 cm. Volume also went up from 1.5 mL to 2.2 mL. Decision was made to repeat ultrasound in 1 year, she had a repeat ultrasound in July 2023 which showed stable size of the right lower pole dominant nodule over the past year.Size: 2.3 x 1.4 x 1.8 cm, volume 2.9 mL. Previously: 1.9 x 1.3 x 1.8 cm, volume 2.3 mL on 07/23/2022 and 1.6 x 1.1 x 1.6 cm, volume 1.5 mL on 10/31/2020. 08/17/24, normal TSH and free T4 Ultrasound thyroid 07/26/2024, I reviewed the images myself which showed a right superior subcentimeter solid isoechoic TR 3 nodule which is new, another right superior 0.7 cm spongiform nodule that remained stable in size. The right lower pole dominant 2.1 cm nodule is solid hypoechoic TR 4 category, remained stable in size. Given stable size of the nodule over this past year, I reviewed the images myself, in the nodule as regular, circular, well some circumscribed, solid, hypoechoic. has been biopsied before in 2021 and was benign. While it has increased in size over 2020 to 2022, it has remained stable since.. I had a discussion with the patient regarding risk of possibly having cancer in this nodule but low likelihood given stable size over this past year, plus overall features of the nodule plus previous biopsy that was benign. We decided to continue ultrasound surveillance. Plan: -repeat ultrasound ordered for August 2025 with follow up in September 2025 -ordered TSH with reflex free T4 to be done prior to follow up in September 2025 Plan See above Orders: Orders 2 TSH reflex Free T4 09/05/25 E04.2 - Nontoxic multinodular goiter US thyroid 09/05/25 E04.2 - Nontoxic multinodular goiter Patient Instructions: Please do ultrasound of the thyroid in August 2025, someone we will call you to schedule this, please make sure this is done a few weeks prior to your follow up in September 2025. Please do thyroid blood work a few days prior to your next follow up in 1 year in September 2025, orders have been placed. Coding Level of Care Code Est Pt Level 3 (26715) Diagnoses Right thyroid nodule E04.1
--- OUTSIDE RECORDS SUMMARY | 2024-10-11 09:43 | XMS_ITS | Patient Health Record ---
Author Organization [facility] Address [address] [place] [address] Care Team Providers Care Jinrikisha Driver Name Role Phone Tasia LEWIS, Zari Primary Care Provider Andrea Nieto [phone] Allergies Allergen (clinical drug ingredient) Drug/Non Drug [...] 05/27/2024 Encounters Encounter Location Date Provider Diagnosis [facility] [place] Out[facility] [address], [place] [id number] 10/08/2024 Andrea Montejo [facility] [address] [place] [address] 05/27/2024 Andrea Montejo Colon cancer screeni ng Z12.11 and Gastroenteritis K52.9 [facility] [address] [place] [address] 05/06/2024 Andrea Montejo Assessments Encounter Date Diagnosis [...] Test Test Name Order Date Colonoscopy 05/27/2024 Insurance Providers Payer Name Payer Address Payer Phone Subscriber Number Group Number Insured Name Patient Relationship to Insured Coverage Start Date Coverage End Date [facility] [address] [place] [address] [phone] [id number] NANETTE, CARLA Self - patient is the insured Medical (General) History Medical History History ICD Code Hypertension Osteoporosis Polymyalgia rheumatica Denies [place],DM,CVA,Lung disease,renal dise ase 2 Negative colonoscopies age 52 and 62 Surgical History Surgery Date(Month/Year) Thyroidectomy left 2000
--- OUTSIDE RECORDS SUMMARY | 2024-10-11 09:43 | XMS_ITS | Clinical Summary ---
Author Organization [facility] Address [address] [place] [id number] Phone Care Team Providers Care Supervisor Metal Hanging Name Role Phone Zari Dozier MD Primary [...] months Prolia injections - standing orders in [facility]. Interval BMD requested Age-related osteoporosis ru [...] as prescribed. Daily sun protection. Follow-up with surg tech at least once a year. Assessment & Plan (06/06/2023 9:21 AM EDT): Carefully continue as prescribed. Daily sun protection. Follow-up with surg tech at least once a year. Assessment & Plan (03/07/2023 10:33 AM EST): Carefully continue as prescribed. Daily sun protection. Follow-up with surg tech at least once a year. Assessment & Plan (09/04/2022 10:45 AM EDT): Carefully continue as prescribed. Daily sun protection. Follow-up with surg tech at least once a year. Assessment & Plan (03/04/2022 11:35 AM EST): Carefully continue as prescribed. Daily sun protection. Follow-up with surg tech at least once a year. Assessment & Plan (09/06/2021 12:06 PM EDT): Carefully continue as prescribed. Daily sun protection. Follow-up with surg tech at least once a year. Assessment & Plan (04/30/2021 11:28 AM EST): Carefully continue as prescribed. Daily sun protection. Follow-up with surg tech at least once a year. Assessment & Plan (01/29/2021 10:44 AM EST): Carefully continue as prescribed. Daily sun protection. Follow-up with surg tech at least once a year. Assessment & Plan (10/26/2020 8:56 AM EDT): Carefully continue as prescribed. Daily sun protection. Follow-up with surg tech at least once a year. Assessment & Plan (07/26/2020 9:15 AM EDT): Carefully continue as prescribed. Daily sun protection. Follow-up with surg tech at least once a year. Assessment & Plan (06/06/2020 11:54 PM EDT): Carefully continue as prescribed. Daily sun protection. Follow-up with surg tech at least once a year. Polymyalgia rheumatica [...] visit in 4 months -standing orders in [facility]. Continue gentle, regular exercise routine as [...] visit in 4 months -standing orders in [facility]. Continue gentle, regular exercise routine as [...] visit in 3 months -standing orders in [facility]. Continue gentle, regular exercise routine as [...] next visit in 6 months-standing orders in [facility]. Continue gentle, regular exercise routine as [...] next visit in 6 months-standing orders in [facility]. Continue gentle, regular exercise routine as [...] sparing medication. She has checked with her surg tech that there are any contraindications to start [...] for discussion. She has checked with her surg tech that there are any contraindications to start [...] for discussion. She has checked with her surg tech that there are any contraindications to start [...] sheets- see details in instruction section of [facility] with today's date Continue gentle, regular [...] She is asked to check with her surg tech whom she had seen last week whether [...] 10:56 AM EST): Continue close follow-up with surg tech as scheduled and make sure there are no contraindications to starting Plaquenil. Assessment & Plan (12/29/2019 11:23 PM EST): Continue close follow-up with surg tech as scheduled and make sure there are [...] regular checkups every 3-4 months-standing orders in [facility]. Assessment & Plan (09/04/2022 10:44 AM EDT): I have reviewed with Carla details of proper weekly administration and need for proper hydration with regular checkups every 3-4 months-standing orders in [facility]. Assessment & Plan (03/04/2022 11:35 AM EST): I have reviewed with Carla details of proper weekly administration and need for proper hydration with regular checkups every 3-4 months-standing orders in [facility]. Assessment & Plan (09/06/2021 12:05 PM EDT): I have reviewed with Carla details of proper weekly administration and need for proper hydration with regular checkups every 3-4 months-standing orders in [facility]. Assessment & Plan (04/30/2021 11:27 AM EST): I have reviewed with Carla details of proper weekly administration and need for proper hydration with regular checkups every 3-4 months-standing orders in [facility]. Assessment & Plan (02/22/2021 3:00 PM EST): I have reviewed with Carla details of proper weekly administration and need for proper hydration with regular checkups every 3-4 months-standing orders in [facility]. lobsterman current use of systemic steroids 02/10/2020 01/29/2021 [...] due for interval BMD next week at [facility]. Assessment & Plan (03/05/2022 3:27 PM EST): Proper calcium and vitamin D supplementation. Fall and fracture prevention strategies. Due to diffuse osteopenia that has progressed within the last couple of years I have offered her bone preserving therapy with Fosamax 70 mg weekly-that she tolerates every Friday morning. She is due for interval BMD after 06/07/2022 at [facility]. Assessment & Plan (09/06/2021 12:06 PM [...] Description 09/30/2024 9:00 AM EDT Nurse Only [facility] [address] [place] [address] [place] [address] Zari Dozier MD Klich-Nowak, Teresa I, MD Age-related osteoporosis without current pathological fracture (Primary Dx) 09/27/2024 8:30 AM EDT - 09/27/2024 11:59 PM EDT Hospital Encounter [facility] [address] [place] [address] [place] [address] Ronit King MD Discharge Disposition: Home or Self Care 09/24/2024 Orders Only [facility] [address] [place] [address] [place] [id number] Essie Moran RN Age-related osteoporosis without current pathological fracture (Primary Dx) 09/20/2024 Refill [facility] [address] [place] [address] [place] [id number] Ronit King MD 09/17/2024 Telephone [facility] [address] [place] [address] [place] [id number] Leslie Guerrero CMA from Last 3 Months [...] 04/01/2025 9:00 AM EST Office Visit [facility] Rhe[facility] [address] [place] [address] Ronit King MD [address] [facility], [address] [place] [address] [email or web address] Due Date Last Done Comments [...] Completed 12/11/2017, 06/11/2017 RSV VACCINE Completed 02/09/2023 SMOKING STATUS SCREENING (Once After 26 Yrs) Completed 04/02/2024 OSTEOPOROSIS SCREENING INITIAL (ONE-TIME) Completed 10/05/2024, 10/03/2022 HEPATITIS A VACCINES Aged Out No long [...] Associated Diagnosis Comments BD DXA SCREENING Routine 10/05/2024 4:10 PM EDT Age-related osteoporosis without current pathological fracture Encounter for monitoring denosumab therapy COMPREHENSIVE METABOLIC PANEL Routine 09/27/2024 8:37 AM EDT Polymyalgia rheumatica Long-term use of Plaquenil Age-related osteoporosis without current pathological fracture C-REACTIVE PROTEIN Routine 09/27/2024 8: 37 AM EDT Polymyalgia rheumatica Long-term use of Plaquenil SEDIMENTATION RATE (ESR) Routine 09/27/2024 8:37 AM EDT Polymyalgia rheumatica Long-term use of Plaquenil CBC AND DIFFERENTIAL Routine 09/27/2024 8:37 AM EDT Polymyalgia rheumatica Long-term use of Plaquenil from Last 3 Months Results * DXA Screening (10/05/2024 4:10 PM EDT) Anatomical Region Laterality Modality Bone Density Bone Density us Ronit LARRY BD BONE DENSITY DEXA Final Result * Comprehensive metabolic panel (09/27/2024 8:37 AM EDT) SODIUM 142 133 - 146 mmol/L [facility] POTASSIUM 4.0 3.3 - 5.1 mmol/L [facility] CHLORIDE 103 96 - 108 mmol/L [facility] CO2 29 21 - 35 mmol/L [facility] BUN 10 6 - 19 mg/dL [facility] CREATININE 0.70 0.5 - 1.5 mg/dL [facility] GLUCOSE 90 70 - 99 mg/dL [facility] ALBUMIN 4.3 3.9 - 4.8 g/dL [facility] TOTAL PROTEIN 6.9 6.5 - 8.0 g/dL [facility] CALCIUM 9.6 8.4 - 10.3 mg/dL [facility] ALKALINE PHOSPHATASE 56 39 - 117 U/L [facility] TOTAL BILIRUBIN 0.6 0.0 - 1.2 mg/dL [facility] AST 14 0 - 37 U/L [facility] ALT 10 0 - 40 U/L [facility] GLOBULIN 2.6 1 - 4.8 g/dL [facility] EGFR 92 >59 mL/min/1.7 3m2 [facility] Comment:Estimated glomerular filtration rate calculated using the CKD-EPI refit equation. ANION GAP 14 10 - 20 mmol/L [facility] Blood 09/27/2024 8:37 AM EDT 09/27/2024 8:41 AM EDT Ronit King MD LAB BLOOD ORDERABLES Fin al Result Performing Organization Address City/[facility]/ZIP Co de Phone Number [address] [address] * Sedimentation rate (ESR) (09/27/2024 8:37 AM EDT) ESR 7 0 - 30 mm/h [facility] Blood 09/27/2024 8:37 AM EDT 09/27/2024 8:41 AM EDT Ronit King MD LAB BLOOD ORDERABLES Fin al Result Performing Organization Address [facility] de Phone Number [address] [address] * CBC and differential (09/27/2024 8:37 AM EDT) WBC 5.52 4.00 - 11.00 K/uL [facility] RBC 4.68 4.00 - 5.20 M/uL [facility] HGB 13.8 12.0 - 16.0 g/dL [facility] HCT 43.0 36.0 - 46.0 % [facility] PLT 201 150 - 450 K/uL [facility] MCV 91.9 80.0 - 100.0 fL [facility] MCH 29.5 27.0 - 31.0 pg [facility] MCHC 32.1 32.0 - 36.0 g/dL [facility] RDW 12.9 11.5 - 14.5 % [facility] MPV 11.1 8.4 - 12.0 fL [facility] NRBC 0.00 0.00 /100 WBCs [facility] ABSOLUTE NRBC 0.00 0.00 K/uL [facility] DIFF METHOD Auto [facility] NEUTS 59.5 48.0 - 76.0 % [facility] LYMPHS 25.9 18.0 - 41.0 % [facility] MONOS 10.0 4.0 - 11.0 % [facility] EOS 3.3 0.0 - 5.0 % [facility] BASOS 1.1 0.0 - 1.5 % [facility] Granulocytes, immature (%) 0.2 0.0 - 0.9 % [facility] ABSOLUTE NEUTS 3.29 1.92 - 7.60 K/uL [facility] ABSOLUTE LYMPHS 1.43 0.72 - 4.10 K/uL [facility] ABSOLUTE MONOS 0.55 0.16 - 1.10 K/uL [facility] ABSOLUTE EOS 0.18 0.00 - 0.50 K/uL [facility] ABSOLUTE BASOS 0.06 0.00 - 0.15 K/uL [facility] Granulocytes, immature 0.01 0.00 - 0.09 K/uL [facility] Blood 09/27/2024 8:37 AM EDT 09/27/2024 8:41 AM EDT us Ronit King MD LAB BLOOD ORDERABLES Fin al Result [address] [id number] * C-Reactive Protein (09/27/2024 8:37 AM EDT) C REACTIVE PROTEIN <3.0 0.0 - 4.0 mg/L [facility] Blood 09/27/2024 8:37 AM EDT 09/27/2024 8:41 AM EDT us Ronit King MD LAB BLOOD ORDERABLES Fin al Result [address] [phone] from Last [address] [place] [address] [place] [address] MEDICARE PPO BLUE [place] [address] [place] [address] MEDICARE PPO BLUE REPLACEMENT [facility] MEDICARE PPO BLUE REPLACEMENT [facility] MEDICARE PPO BLUE [place] [place] [address] MEDICARE PPO [place] [address] [place] [address] MEDICARE PPO [address] [place] [address] MEDICARE PPO [address] [place] [address] MEDICARE PPO BLUE REPLACEMENT [facility] MEDICARE PPO BLUE REPLACEMENT Member Subscriber Plan / Payer (Ef fective 2017-Present) Name:Carla Godinez Relation to Subscriber:Self Name:Carla Godinez Payer ID:[id number] (NAIC) Type:Medicare Address: [place] [id number] Care Teams Supervisor Metal Hanging Relationship Specialty Start Date End Date Zari Dozier MD [address] [facility] [place] [address] PCP - General Internal Medicine 11/11/19 Additional Source Comments The information contained in this document represents components of the legal health record. It is not the complete legal health record.[facility]
== END 2024-10-11 09:40 | disposition home or self-care (01) ==
LOC: HO.ENCR 09:14
PROVIDERS: PCP Internal Medicine; Visit Provider Student in an Organized Health Care Education/Training Program
DX: E04.1 Nontoxic single thyroid nodule (principal)
CPT/HCPCS: 99213

== ENCOUNTER → 2024-10-11 09:13 | Outpatient (BNVA) | payer MEDICARE, SELFPAY | PROVIDERS: PCP Internal Medicine; Visit Provider Student in an Organized Health Care Education/Training Program | DX: E04.1 Nontoxic single thyroid nodule (principal) | CPT/HCPCS: 99212 ==